=== PATIENT | female | born 1945 | race Caucasian/White ===

== ENCOUNTER 2016-06-14 08:46 | Inpatient (IN) | payer MEDICARE, OTHER ==
[2016-06-14] VITALS (8 sets, daily range): BP systolic 92–118; BP diastolic 48–70; PULSE 59–104; RESP 16–22; O2SAT 97–99
[~2016-06-14] VITALS: Ht 156.2 cm; Wt 56.8 kg
[~2016-06-14 08:46] MED LIST: ALBU18HF INHALATION; CHOL200047 PO; FOLI1TAB18 PO; FURO40TA4 PO; HYDR-4003 PO; IBUP-1827 PO; LEVO137T2 PO; LORA0.5T PO; MULT-1018 PO; OMEG1CAP56 PO; POTA20TA16 PO; THIA100T64 PO
--- NOTE | 2016-06-14 09:15 | ED.REPORT ---
HPI-GI Bleed Date of Service Jun 14, 2016 ED Provider: Bhavin Srinivasan MD A 71 year old female with a history of Radha fundoplication, colon resection, diverticulitis, cirrhosis, and anxiety is brought to the ED via EMS due to a possible rectal bleed. The pt noticed blood in her stool 1.5 days ago. This has been accompanied by nausea, abdominal pain, reduced appetite, and fatigue. She was also found to have low blood pressure by medics. The pt denies lightheadedness, dizziness, vomiting, diarrhea, or cough. The pt had an endoscopy in 2013 that indicated distal esophagitis with multiple antral ulcers. Nursing Notes Stated Complaint: RECTAL BLEEDING Chief Complaint: General Complaint Nursing Notes Reviewed: Yes Allergies: Coded Allergies: No Known Allergies (Verified , 06/14/16) Scheduled Cholecalciferol (Vitamin D3) (Vitamin D3) 2,000 Unit Capsule 2,000 UNIT PO DAILY Folic Acid (Folic Acid) 1 Mg Tablet 1 MG PO DAILY Furosemide (Furosemide) 40 Mg Tablet 40 MG PO DAILY Levothyroxine (Levothyroxine) 137 Mcg Tablet 137 MCG PO DAILY Multivitamin (Multi Vitamin Daily) 1 Each Tablet 1 EACH PO DAILY [place]-3 Fatty Acids/Fish Oil ([place] 3 1,000 mg Softgel) 1 Each Capsule 1 CAPSULE PO DAILY Potassium Chloride (Potassium Chloride) 20 Meq Tab.er.prt 20 MEQ PO DAILY TAKE WITH FOOD Thiamine Mononitrate (Vitamin B-1) 100 Mg Tablet 100 MG PO DAILY Scheduled PRN Albuterol Sulfate (Ventolin HFA Inhaler) 200 Puff/18 Gm Inhaler 2 PUFF INHALATION Q4H PRN PRN For Shortness of Breath Hydrocodone-Acetaminophen 5-325 mg (Hydrocodone-Acetaminophen 5-325 mg) 1 Each Tablet 1 TABLET PO Q4H PRN PRN For Pain Ibuprofen (Ibuprofen) 600 Mg Tablet 600 MG PO TIDWM PRN PRN For Pain Lorazepam (Lorazepam) 0.5 Mg Tablet 0.5 MG PO Q6H PRN PRN For Anxiety General Time Seen by Provider: 09:08 Chief Complaint Chief Complaint: Other (Blood in stool) Hx Obtained From: Patient, EMS Arrived By: Ambulance Onset Occurred: 2 days ago Symptom Duration: Since onset Recent Healthcare: Recent doctor visit, Recent hospitalization Similar Sx Previous: No Past Medical History Past Medical History Notes: PCP: Dr. Sol numerous recent ED visits for hip pain and alcohol intoxication Endoscopy 2013 indicates distal esophagitis with multiple antral ulcers Past Medical History 1. History of childhood asthma, which is quite stable. 2. Chart review reveals a diagnosis of paroxysmal atrial fibrillation. 3. Hypothyroidism. 4. Sleep apnea, untreated. 5. Central retinal vein occlusion. 6. Cataract on the left. 7. History of sepsis secondary to UTI with a prolonged hospitalization in June 2013. 8. Chronic hip pain 9. Liver cirrhosis 10. Mild dementia 11. Anxiety Reports: GERD Past Surgical History Surgical History 1. Sinus surgery. 2. YRN, BSO. 3. Colon resection for diverticulitis. 4. Radha fundoplication. 5. Endoscopy 6. Sinus nasoplasty Reports: Hip replacement Family History noncontributory Smoking History Former Smoker Social History History of EtOH abuse Drug Use: Denies drug use Other Social History: Good social support, , Local resident Ambulatory Status Wheelchair Review of Systems Constitutional: Reports: Fatigue Respiratory: Denies: Non-productive cough, Prod cough, bloody, Shortness of breath Cardiovascular: Denies: Chest pain GI: Reports: Abdominal pain, Denies: Nausea, Vomiting Skin: Denies Rash Neurologic: Denies: Dizziness, Lightheaded Complete sys rev & neg: except as marked. Physical Exam Initial Vital Signs Vital Signs (First) Date Time Temp Pulse Resp B/P Pulse Ox O2 Delivery O2 Flow Rate FiO2 06/14/16 09:02 37.1 104 20 93/51 99 Room Air Initial VS: Reviewed General/Constitutional: Awake, Alert Respiratory / Chest: Atraumatic, Breath sounds NL, Breath sounds = bilat, No respiratory distress Cardiovascular: Heart rate NL, Regular rhythm, Heart sounds NL, No murmurs Abdomen: Atraumatic, Soft, Non-tender, BS normoactive grossly bloody external hemorrhoids, no active bleeding scaly skin over decubitus area no ulcers Head / Eyes: Atraumatic, Normocephalic, PERRL, EOMI ENT: Atraumatic, Airway patent, Mucous membranes moist Skin Skin: Atraumatic, Color NL, No rash, Warm, Dry Neurologic: Oriented X3, Speech NL, No motor deficits, No sensory deficits Neck: Atraumatic, Supple, Full range of motion Back: Atraumatic, Full range of motion Upper Extremity / MS: Atraumatic, Full range of motion Lower Extremity / Pelvis / MS: Atraumatic, Full range of motion Psychiatric: Affect NL, Mood NL Interpretation & Diagnostics Lab Results Interpretation Result Diagram: 06/14/16 0917 06/14/16 0917 Test 06/14/16 09:17 White Blood Count 5.4th/mm3 (3.8-10.1) Red Blood Count 3.13mil/mm3 (3.90-5.20) Hemoglobin 9.6g/dL (12.0-15.6) Hematocrit 29.7% (35.0-46.0) Mean Corpuscular Volume 94.9fL (81-100) Mean Corpuscular Hemoglobin 30.7pg (27.0-35.0) Mean Corpuscular Hemoglobin Concent 32.3% (32.0-37.0) Red Cell Distribution Width 20.9% (12.3-15.4) Platelet Count 146bil/L (150-400) Neutrophils (%) (Auto) 66.0% (40-74) Lymphocytes (%) (Auto) 16.4% (14-46) Monocytes (%) (Auto) 15.5% (4-12) Eosinophils (%) (Auto) 0.9% (0-5) Basophils (%) (Auto) 0.6% (0-3) Prothrombin Time 14.7sec (8.1-12.5) Prothromb Time International Ratio 1.37ratio Sodium Level 142mEq/L (134-144) Potassium Level 3.2mEq/L (3.5-5.2) Chloride Level 105mEq/L (97-108) Carbon Dioxide Level 24mmol/L (18-29) Blood Urea Nitrogen 6mg/dL (8-27) Creatinine < 0.30mg/dL (0.57-1.00) Estimat Glomerular Filtration Rate 315mL/min (>59) Glucose Level 137mg/dL (60-99) Calcium Level 7.6mg/dL (8.5-10.1) Total Bilirubin 2.5mg/dL (0.0-1.2) Aspartate Amino Transf (AST/SGOT) 165U/L (0-50) Alanine Aminotransferase (ALT/SGPT) 73U/L (0-32) Alkaline Phosphatase 153U/L (25-165) Total Protein 5.5g/dL (6.4-8.4) Albumin 2.4g/dL (3.4-5.0) ECG Interpretation ECG Interpretation: normal sinus rhythm with a rate of 82 RBBB T wave inversions in V1-V3 no change from previous dated 02/11/2016 Time: 09:42 Interpreted by: ED physician X-Ray Chest Interpretation Chest Xray Interpretation: IMPRESSION: No acute cardiopulmonary disease. Dictated by: Jordy Lopez M.D. on 06/14/2016 at 9:46 Approved by: Jordy Lopez M.D. on 06/14/2016 at 9:46 Interpretation / Wet Read by: Interpret - Radiologist Re-Eval/Medical Decision Med Decision/Clinical Course 71-year-old female history of Radha fundoplication, diverticulitis status post colon resection, presenting with rectal bleeding 2 days. Endoscopy in 2013 showed antral ulcers negative for malignancy. Reports melena 6 months ago for several days never sought care. Hemoglobin here is 9.7 which is stable. MAPs stable here. Gross red blood on exam. Discussed with GI Dr. Snell who recommended admission on Protonix drip with endoscopy and colonoscopy tomorrow morning. Admitted to telemetry. Source of Hx: Old records Re-Evaluation/Progress #1: Time of Eval: 11:27 Patient Status: Condition improved Re-Evaluation/Progress Note: Pt rechecked, who is stable. Further physical examination is performed. Re-Evaluation/Progress #2: Time of Eval: 12:19 Patient Status: Condition unchanged Re-Evaluation/Progress Note: Pt rechecked, who is comfortable. She is informed of the need for admission. The pt understands and agrees with the plan. All questions are addressed at this time. Code status is discussed. Pt is full code. Consultation #1: Referral / Consult Name: Rafael Snell MD Call Returned at: 11:41 Revenue Specialist: Agrees with eval, Agrees with plan Note: Consulted with Dr. Snell, GI, regarding pt's case. Dr. Snell recommends admission, Protonix drip, and colonoscopy tomorrow. Consultation #2: Referral / Consult Name: Tamir Underwood DO Consulted With: Hospitalist Call Returned at: 12:16 Revenue Specialist: Agrees with eval, Agrees with plan, Accepts admit Note: Spoke with Dr. Underwood, hospitalist, regarding pt's case. Dr. Underwood agrees with the evaluation and agrees to admit the pt. Counseled Regarding: Diagnosis, Lab results, Need for admission Discharge & Departure Impression: Primary Impression: GI bleed GI bleed type/associated pathology: unspecified gastrointestinal hemorrhage type Qualified Code: K92.2 - Gastrointestinal hemorrhage, unspecified Disposition: ADMITTED TO HOSPITAL Discharge Condition All VS Reviewed: Yes Condition: Stable Referrals: NOPCP (PCP) Alonzoiblatia Attestation Portions of this note were transcribed by Abigail Bush. I, Dr. Srinivasan personally performed the history, physical exam and medical decision-making; I reviewed and confirmed the accuracy of the information in the transcribed note. Signed by: Chalino Gamino, 06/14/2016, 12:25 Bhavin Srinivasan MD Jun 14, 2016 09:15 ABIGAIL BUSH Jun 14, 2016 10:07
[2016-06-14] MEDS ORDERED: 0.9% Sodium Chloride 1,000 ML IV ONE ×2 (09:26→13:20)
[2016-06-14] MEDS ORDERED: Pantoprazole 4 mg/mL 10 mL Inj IVPUSH ONE (09:30)
--- NOTE | 2016-06-14 09:48 | DRSVH ---
PROCEDURE: X-RAY CHEST ONE VIEW, PORTABLE ([id number]) INDICATIONS: 71 year-old female with gastrointestinal bleeding. TECHNIQUE: One view of the chest was acquired. COMPARISON: [facility], CR, XR CHEST 1VW (PORTABLE), 02/11/2016, 15:19. [facility], CR, XR CHEST 1VW (PORTABLE), 01/25/2016, 19:18. [facility], CR, CHEST FOR PICC PLACEMENT , 08/02/2014, 15:13. FINDINGS: Surgical changes and devices: None. Lungs and pleura: No pleural effusions or pneumothorax. Lungs are clear. Mediastinum: Mediastinal contours appear normal. Heart size is normal. There is aortic atheroscler osis. Bones and chest wall: No suspicious bony lesions. Overlying soft tissues appear unremarkable. IMPRESSION: No acute cardiopulmonary disease. Dictated by: Jordy Lopez M.D. on 06/14/2016 at 9:46 Approved by: Jordy Lopez M.D. on 06/14/2016 at 9:46
[2016-06-14 10:01] LABS: INR 1.37 ratio
[2016-06-14 10:05] LABS: BASOPHILS % (AUTO) 0.6 % (0-3); EOSINOPHILS % (AUTO) 0.9 % (0-5); MONOCYTES % (AUTO) 15.5 % (4-12); Mean Corpuscular Hemoglobin 30.7 pg (27.0-35.0); Mean Corpuscular Volume 94.9 fL (81-100); Platelet Count 146 bil/L (150-400)
[2016-06-14] MEDS ORDERED: Pantoprazole Inj 80 MG, Pharmacy To Mix 1 EA in 0.9% Sodium Chloride 80 ML IV ONE ×2 (12:15)
[2016-06-14] MEDS ORDERED: Ondansetron 2 mg/mL 2 mL Inj IVPUSH PRN ×2 (12:20→14:05)
[2016-06-14] MEDS ORDERED: Alum-Mag Hydrox-Simeth 30 mL Suspension PO PRN ×2 (12:20→14:05)
[2016-06-14] MEDS ORDERED: Polyethylene Glycol (PEG) 17 Gm Powder PO PRN (14:05)
[2016-06-14] MEDS ORDERED: Pantoprazole Inj 80 MG in 0.9% Sodium Chloride 100 ML IV ONE (14:10)
[2016-06-14] MEDS: Multivit-Miner-Folic Acid-Iron Tablet PO SCH (14:10)
--- NOTE | 2016-06-14 14:57 | DRSVH ---
PROCEDURE: US ABDOMEN, LIMITED ([id number]) INDICATIONS: 71 year-old female with right upper quadrant pain, elevated liver function tests. TECHNIQUE: Real-time focused scanning was performed of the abdomen, with image documentation. COMPARISON: [facility], CT, CT ABD PELVIS W CON, 01/25/2016, 20:39. FINDINGS: Solitary dependent nonmobile 1.4 cm shadowing gallstone is again noted. Gallbladder wall is thickened from 3-5 mm. No pericholecystic fluid. Extrahepatic bile duct is nondilated at 4.4 mm. IMPRESSION: Nonmobile 1.4 cm gallstone as well as gallbladder wall thickening, suspicious for evolvin g acute cholecystitis. Dictated by: Jordy Lopez M.D. on 06/14/2016 at 14:55 Approved by: Jordy Lopez M.D. on 06/14/2016 at 14:55
[2016-06-14] MEDS: 0.9% Sodium Chloride 1,000 ML IV SCH (15:03)
[2016-06-14] MEDS: Pantoprazole Inj 80 MG in 0.9% Sodium Chloride 80 ML IV SCH (15:03)
[2016-06-14] MEDS ORDERED: PEG/Electrolytes 4,000 mL Solution PO ONE (16:00)
--- NOTE | 2016-06-14 16:15 | NUR ---
Admit to Room 3026 Pt. arrived to room via stretcher at approx. 1300. Pt. very lethargic, woke easily to voice and light touch but fell back to sleep quickly. Pt. alert to self and location but required frequent reminders as to plan of care. No family in room. Pt. very poor historian. Admit assessment completed using records from prior admits. No medication list available. Requested list from [facility] on [address] but pharmacy is currently closed through . Thorough skin check completed with charge preparation technician and additional RN. Pressure ulcer protocol initiated. Pt. currently on P-500 KATHLEEN bed. Pt. crying out when legs are moved or she is repositioned in bed. Cooperative with care. Bowel prep started. Pt. does not use call light appropriately but calls out into hallways. Frequent rounding being performed.
[2016-06-14 20:04] LABS: APPEARANCE,URINE TURBID (CLEAR,HAZY); COLOR,URINE DARK YELLOW (YELLOW)
--- NOTE | 2016-06-14 20:08 | PCM.HPMED ---
Subjective Date of Service Jun 14, 2016 Primary Provider: Admitting Physician: Tamir Underwood DO Primary Care Physician: Andrez Attending Physician: Tamir Underwood DO Admit Status: From the Emergency Department Chief Complaint: bright red blood per rectum History of Present Illness: History is limited as patient and her are poor historians. 71 yr old female with history of Radha fundoplication, colon resection, diverticulitis, cirrhosis,paroxysmal afib and alcohol abuse presented to the ED via EMS due to bright red blood per rectum that began last night. Pt and her report that last night after a bowel movement, they noticed bright red blood in her stool. Pt reports she has never experienced anything like this in the past. Pt denies any other symptoms, other than her chronic right hip pain. Pt's reports that she has been getting progressively weaker over the past few weeks.Pt denies nausea, vomiting, diarrhea, abdominal pain, fevers or chills. Pt denies any lightheadedness or dizziness. Pt and deny any previous episodes of hematochezia and deny any episodes of melena. Pt reports that she has chronic hip pain, and denies using NSAIDs for the pain. She reports she was previously taking oxycodone, but this was discontinued by her PCP and now she takes Gabapentin, which she feels does not help her pain. Pt reports that she had a colonoscopy and EGD 5 years ago, and was told everything was normal. Pt's reports she has a history of colon polyps. Pt reports that her mother had colon cancer, but denies any family history of celiac disease or IBS. Of note, pt has history of alcoholism with multiple admissions. Pt admits to drinking 1 glass of wine nightly, reports that she additionally drinks 3 -4 glasses of vodka as well( did not specify size of glass). Review of records note that both the patient and her have history of alcohol abuse. Pt reports her last alcoholic drink was sometime in the afternoon of 06/13/2016. Pt and deny any history of withdrawal seizures. While in the ER, temp 37.1, HR104, RR20, BP 93/51, 99% on RA. Pt received fluids while in the ER. Hgb and Hct in ER 9.6/29.7 respectively, no transfusion given. Blood alcohol level less than 10. Review of Systems: A comprehensive review of systems was conducted with the patient and found to be negative except as above in the History of Present Illness. Allergies Coded Allergies: No Known Allergies (Verified , 06/14/16) Home Medications From discharge instructions on 02/14/2016 Discharge Medications Cholecalciferol (Vitamin D3) (Vitamin D3) 2,000 Unit Capsule 2,000 UNIT PO DAILY Prescribed by: ANNA ALCARAZ DO Folic Acid (Folic Acid) 1 Mg Tablet 1 MG PO DAILY Prescribed by: ANNA ALCARAZ DO Furosemide (Furosemide) 40 Mg Tablet 40 MG PO DAILY Prescribed by: ANNA ALCARAZ DO Levothyroxine (Levothyroxine) 137 Mcg Tablet 137 MCG PO DAILY Prescribed by: ANNA ALCARAZ DO Multivitamin (Multi Vitamin Daily) 1 Each Tablet 1 EACH PO DAILY Prescribed by: ANNA ALCARAZ DO [place]-3 Fatty Acids/Fish Oil ([place] 3 1,000 mg Softgel) 1 Each Capsule 1 CAPSULE PO DAILY Prescribed by: ANNA ALCARAZ DO Potassium Chloride (Potassium Chloride) 20 Meq Tab.er.prt 20 MEQ PO DAILY TAKE WITH FOOD Prescribed by: ANNA ALCARAZ DO Thiamine Mononitrate (Vitamin B-1) 100 Mg Tablet 100 MG PO DAILY Prescribed by: ANNA ALCARAZ DO As needed Albuterol Sulfate (Ventolin HFA Inhaler) 200 Puff/18 Gm Inhaler 2 PUFF INHALATION Q4H PRN PRN For Shortness of Breath Prescribed by: ANNA ALCARAZ DO Hydrocodone-Acetaminophen 5-325 mg (Hydrocodone-Acetaminophen 5-325 mg) 1 Each Tablet 1 TABLET PO Q4H PRN PRN For Pain Prescribed by: ANNA ALCARAZ DO Ibuprofen (Ibuprofen) 600 Mg Tablet 600 MG PO TIDWM PRN PRN For Pain Prescribed by: ANNA ALCARAZ DO Lorazepam (Lorazepam) 0.5 Mg Tablet 0.5 MG PO Q6H PRN PRN For Anxiety Prescribed by: ANNA ALCARAZ DO Additional med instructions Medication prescription will be provided for assisted living facility PMH Numerous recent ED visits for hip pain and alcohol intoxication Dementia. is caregiver History of childhood asthma, which is quite stable. Paroxysmal atrial fibrillation. Hypothyroidism. Sleep apnea, untreated. Central retinal vein occlusion. Cataract on the left. History of sepsis secondary to UTI with a prolonged hospitalization in June 2013. Chronic hip pain GERD Alcohol use disorder Surgical History Sinus surgery. YRN, BSO. Colon resection for diverticulitis. Radha fundoplication. Endoscopy Hip replacement Family History Mother had colon cancer Father had a broken hip Social History Hx Alcohol Use: Yes (per drinks 3-4 drinks of vodka daily, and wine daily) Hx Substance Use: No Hx Tobacco Use: No Smoking Status: Former Smoker (quit 1975) Living Arrangement: with Family Exam Vital Signs Vital Sign - Last Date Time Temp Pulse Resp B/P Pulse Ox O2 Delivery O2 Flow Rate FiO2 06/14/16 14:41 70 06/14/16 13:38 37.0 16 111/70 99 Room Air Exam General: No acute distress, frail appearing, appropriately interactive HEENT: Normocephalic, atraumatic. Pupils equal, round, and reactive to light and accommodation. Anicteric sclerae, moist conjunctivae. Oropharynx with moist mucosa. Neck: Supple with full range of motion. Cardiovascular: Regular rate and rhythm with no murmurs, rubs, or gallops appreciated Pulmonary: Clear to auscultation bilaterally with no crackles, wheezes, or rhonchi. Normal respiratory effort with no use of accessory muscles. Abdomen: Bowel tones present. Soft, nontender, nondistended. Extremities: Multiple areas of ecchymosis throughout upper and lower extremities. No edema Skin: Multiple skin tears on extremities, ecchymosis. Normal temperature. Psychiatric: Normal mood and affect. Lab and Diagnostics Result Diagram: 06/14/1691606/14/16916 X-Rays, CTs and MRIs PROCEDURE: X-RAY CHEST ONE VIEW, PORTABLE ([id number]) FINDINGS: Surgical changes and devices: None. Lungs and pleura: No pleural effusions or pneumothorax. Lungs are clear. Mediastinum: Mediastinal contours appear normal. Heart size is normal. There is aortic atherosclerosis. Bones and chest wall: No suspicious bony lesions. Overlying soft tissues appear unremarkable. IMPRESSION: No acute cardiopulmonary disease. Dictated by: Jordy Lopez M.D. on 06/14/2016 at 9:46 Approved by: Jordy Lopez M.D. on 06/14/2016 at 9:46 PROCEDURE: US ABDOMEN, LIMITED ([id number]) COMPARISON: [facility], CT, CT ABD PELVIS W CON, 01/25/2016, 20:39. FINDINGS: Solitary dependent nonmobile 1.4 cm shadowing gallstone is again noted. Gallbladder wall is thickened from 3-5 mm. No pericholecystic fluid. Extrahepatic bile duct is nondilated at 4.4 mm. IMPRESSION: Nonmobile 1.4 cm gallstone as well as gallbladder wall thickening, suspicious for evolving acute cholecystitis. Dictated by: Jordy Lopez M.D. on 06/14/2016 at 14:55 Approved by: Jordy Lopez M.D. on 06/14/2016 at 14:55 Assessment & Plan Acute GI bleed, present on admission, ongoing -Pt reports hematochezia -NPO for EGD and Colonoscopy in the AM -Protonix drip started -Continue to monitor -Labs in AM Alcohol abuse, present on admission, ongoing - CIWA protocol if needed. Not showing signs of withdrawal currently. -Continue to monitor - Telemetry -Social work consulted Acute hypokalemia. Present on admission. ongoing - repleted with Kdur - lab in am Acute on chronic transaminitis, Present on admission, ongoing - AST/ALT elevated at 165/73 -Current alcohol abuse -Previous CT imaging showed "Significant interval diffuse low attenuation change in appearance of the liver compared to prior exam. This could represent significant interval steatosis. A more aggressive, widely diffuse infiltrative process cannot be definitively excluded. Correlation to laboratory enzyme levels as well as potential further evaluation with MRI with hepatic protocol is recommended, as indicated." - Repeat labs in AM Gallstones on US, chronicity unknown, present on admission, ongoing -US done in ER demonstrating "Nonmobile 1.4 cm gallstone as well as gallbladder wall thickening, suspicious for evolving acute cholecystitis." -Pt had benign abdominal exam, denying pain. -Continue to monitor Chronic anemia, present on admission, ongoing - Anemia of chronic disease, liver disease, alcohol habituation - Patient's hemoglobin and hematocrit are at her baseline -No intention to transfuse at this time Code status: Discussed this with patient, and she states she is full code. Previous hospitalization in 01/2016 pt was DNR/DNI. Recommend discussing this with patient and family Patient admitted under inpatient status with expected length of stay > 2 midnights for severity of present symptoms, complexities of treatment plan and risk for adverse events VTE Mechanical Devices: Intermittant Pneumatic CD Resuscitation Status: CPR: Attempt Resuscitation Time spent 60 minutes Attending Statement I reviewed this patients chart, discussed the plan of care with the resident and examined the patient. I agree with the above physical exam and assessment and plan. Radha Whitehead DO Jun 14, 2016 15:22 Tamir Underwood DO Jun 15, 2016 17:13
[2016-06-14] MEDS ORDERED: Potassium Chloride 20 mEq SR Tablet PO ONE (20:10)
[2016-06-14 20:55] LABS: OCCULT BLOOD,URINE TRACE (NEGATIVE)
[2016-06-14 21:05] LABS: ICTOTEST,URINE POSITIVE (Negative)
[2016-06-15] VITALS (12 sets, daily range): BP systolic 86–124; BP diastolic 49–79; PULSE 65–87; RESP 14–22; O2SAT 95–100
[2016-06-15] MEDS: Pantoprazole Inj 80 MG in 0.9% Sodium Chloride 80 ML IV SCH ×3 (00:45→15:28)
[2016-06-15] MEDS: 0.9% Sodium Chloride 1,000 ML IV SCH ×3 (00:45→20:38)
--- NOTE | 2016-06-15 06:04 | NUR ---
Swallow/Golytely prep/PSVT Patient had difficulty swallowing pill this evening. Pill was cut in half and she began choking after sipping water. patient states " I don't usually have an audience at home" Patient continued to cough on water but states the pill finally went down. all other medications held for safety MD contacted. Swallow evaluation ordered. Patient to be on golytley prep. ok'd pills crushed in apple sauce if needed. Patient had no issues swallowing water per RN Swallow evaluation. Pills held at this time. Golytely prep continued. Patient encouraged to completed bowel prep. Golytely cup at bedside. patient encouraged to drink whole cup within 45 minutes. continue to check back with patient every 10 minutes patient would take on sip and states "I just can't" notified. patient had only consumed one 400ml cup from [id number]. MD schultz continue to encourage. Charge nurse into encouarge patient. Patient encouraged throughout the night and educated on purpose of bowel prep multiple times. at bedside encouraging patient. Patient has had 4 formed stools this shift. no signs of blood or bleeding present. Patient continues to sip golytely despite education and enforcement, she is aware that she may not be able to have colonoscopy or EGD in AM if she does not finish the bowel prep. Will continue to monitor. Patient had run of PSVT x2. notified. patient non-symptomatic. Vitals stable. MD notified. Potassium low and replaced this HS. ordered Magnesium for AM. will continue to monitor.
[2016-06-15 06:33] LABS: BASOPHILS % (AUTO) 0.9 % (0-3); EOSINOPHILS % (AUTO) 3.1 % (0-5); MONOCYTES % (AUTO) 15.5 % (4-12); Mean Corpuscular Hemoglobin 30.8 pg (27.0-35.0); Mean Corpuscular Volume 94.1 fL (81-100); NEUTROPHILS % (AUTO) 57.7 % (40-74); Platelet Count 95 bil/L (150-400)
[2016-06-15 06:52] LABS: Magnesium 1.2 mg/dL (1.6-2.6)
[2016-06-15] MEDS: Multivit-Miner-Folic Acid-Iron Tablet PO SCH (08:30)
[2016-06-15] MEDS ORDERED: Lactated Ringer's 1,000 ML IV ONE (08:43)
[2016-06-15] MEDS: Magnesium Sulf 2 Gm/50mL Water 2 GM in IV Premix 1 EACH IV SCH ×2 (08:51→20:41)
--- NOTE | 2016-06-15 09:47 | NUR ---
Off Marroquin Pt taken off floor to endo. BP 85/49, endo RN notified and will discuss w/ anesthesia. Addendum: 06/15/16 at 1704 by JOVANY NANCE RN Late Entry: Found pt back in room 3026 shortly after 11am.
--- NOTE | 2016-06-15 10:22 | PCM.ANEP1 ---
Post Anesthesia Phase 1 PACU Phase 1 Assessment Vital Signs Vital Signs Date Time Temp Pulse Resp B/P Pulse Ox O2 Delivery O2 Flow Rate FiO2 06/15/16 09:25 36.8 68 20 86/49 99 Room Air 06/15/16 08:00 66 06/15/16 05:23 70 06/15/16 05:03 36.9 70 20 124/55 97 Room Air Anesthetic Administered: GA Level of Alertness: Awake, talking SAMUELS's with Equal Strength: Yes Pain: No Nausea or Vomiting: No Oxygen Delivery: Nasal Cannula Lungs: Normal Air Movement Dermatome Level: Full Sensation Arnold Vernon MD Jun 15, 2016 10:22
--- NOTE | 2016-06-15 10:22 | PCM.ANEP2 ---
Post Anesthesia Evaluation ASA/CMS Post Anesthesia VS in Patient's Normal Range?: Yes Resp Stable; Airway Patent?: Yes CV Function & Hydration Stable: Yes Mental Status Recovered?: Yes Pain control Satisfactory?: Yes N/V Control Satisfactory?: Yes Arnold Vernon MD Jun 15, 2016 10:22
--- NOTE | 2016-06-15 10:22 | PCM.HPANE ---
Patient Data Surgeon Admitting Provider: Attending Provider: Primary Care Physician:Nopcp Other Provider: Reason for Visit Gi Bleed Ht/WT & BMI Height (Feet): 5 Height (Inches): 1.50 Weight (Kilograms): 56.800 Body Mass Index 23.34 Allergies Coded Allergies: No Known Allergies (Verified , 06/14/16) Past Anesthesia History Anesthesia History: Denies:: Abnormal Airway, Anesthesia Reactions, Difficult Intubation, Fam Anesthesia Reaction, Fam Malignant Hypertherm, Malignant Hyperthermia Diabetes History Hx Diabetes?: No MRSA MRSA: No Medications Active Scripts Potassium Chloride 20 Meq Tab.er.prt20 Meq PO DAILY 30 Days Ref 0 TAKE WITH FOOD Prov:Rafael Biggs DO 02/14/16 Hydrocodone-Acetaminophen 5-325 mg 1 Each Tablet1 Tablet PO Q4H PRN For Pain # 20 TABLET Ref 0 Prov:Rafael Biggs DO 02/14/16 Cholecalciferol (Vitamin D3) (Vitamin D3)2,000 Unit Capsule2,000 Unit PO DAILY 30 Days Prov:Rafael Biggs DO 02/14/16 [place]-3 Fatty Acids/Fish Oil ([place] 3 1,000 mg Softgel)1 Each Capsule1 Capsule PO DAILY 30 Days Prov:Rafael Biggs DO 02/14/16 Albuterol Sulfate (Ventolin HFA Inhaler)200 Puff/18 Gm Inhaler2 Puff INHALATION Q4H PRN For Shortness of Breath 30 Days Prov:Rafael Biggs DO 02/14/16 Furosemide 40 Mg [id number] Mg PO DAILY #30 Prov:Rafael Biggs DO 02/14/16 Thiamine Mononitrate (Vitamin B-1)100 Mg [id number] Mg PO DAILY 14 Days Prov:Rafael Biggs DO 02/14/16 Lorazepam 0.5 Mg Tablet0.5 Mg PO Q6H PRN For Anxiety #10 TABLET Ref 0 Prov:Rafael Biggs DO 02/14/16 Ibuprofen 600 Mg [id number] Mg PO TIDWM PRN For Pain #40 TABLET Ref 0 Prov:Rafael Biggs DO 02/14/16 Folic Acid 1 Mg Tablet1 Mg PO DAILY 30 Days Prov:Rafael Biggs DO 02/14/16 Levothyroxine 137 Mcg [id number] Mcg PO DAILY 30 Days Prov:Rafael Biggs DO 02/14/16 Multivitamin (Multi Vitamin Daily)1 Each Tablet1 Each PO DAILY 30 Days Ref 0 Prov:Rafael Biggs DO 9/1/16 History History of ENT Problems?: Yes HEENT History: Positive for:: Sinus Problem ("sinus surgery") Denies:: Abnormal Airway Cataracts Difficult Intubation Dysphagia Hearing Problem Hx of Heart Problems?: Yes Cardiovascular History: Positive for:: Atrial Fibrillation Chest Pain Irregular Heartbeat (Paroxysmal A. Fib. ) Denies:: Cardiac Surgery Congestive Heart Failure Edema Heart Murmur Hypertension Pacemaker Thrombophlebitis Hx of Respiratory Problem?: Yes Respiratory History: Positive for:: Asthma Tuberculosis Denies:: COPD Chest Surgery Dyspnea Emphysema Hemoptysis Pneumonia Hx Neurologic Problems?: Yes Neurological History: Positive for:: Dementia Headaches Denies:: Alzheimer's Disease CVA Dizziness Parkinson's Disease Seizures Hx of GI Problems?: Yes Gastrointestinal History: Positive for:: Cirrhosis Diverticulitis (Colon resection mid ) Gastroesphageal Reflux (radha procedure) Gastrointestinal Bleeding Hepatitis (Liver disease. Steatohepatitis. Cirrhosis.) Hiatal Hernia (repaired- Radha procedure 2001) Denies:: Heartburn Rectal Bleeding Hx of Problems?: No Genitourinary History: Positive for:: Urinary Tract Infection Denies:: HX of Hemodialysis Kidney Stones HX of Peritoneal Dialysis: No Female Hx: Denies:: Currently Endometriosis Pelvic Inflammatory Problems with Breasts? Hx Musculoskeletal Problems?: Yes Musculoskeletal History: Positive for:: Back Injury Joint Replacement (Rt hip surg X2) Denies:: Musculoskeletal Trauma Hx of Psycho/Social Problems?: Yes Psycho Social History: Positive for:: Anxiety Hx Depression Denies:: Bipolar Disorder Suicide Attempt Hx Surgeries?: Yes (Colon resection,Radha fundoplication,Camilo SULLIVAN.Sinus nasoplasty, rt hip) Hx Any Other Health Problems?: Yes Other History: Positive for:: Hospitalization (liver issues 2010) Thyroid Disease (Takes Synthroid. ) Denies:: Cancer Endocrine Disease History Blood Transfusions: Positive for:: Accept Blood Products? Denies:: Blood Transfuse Reaction Blood Transfusions Hx Diabetes: No Hx Alcohol Use: Yes (per drinks 3-4 drinks of vodka daily, and wine daily)Hx Substance Use: No Smoking Status: Former Smoker (quit 1975) Have You Smoked inLast 12 mo: No Stop/Bang Risk Assessment Category Category 1A: Patient has history of documented sleep apnea, and HAS NOT received any narcotic, sedative or anesthesia administration during this stay. Category 1B: Patient has history of documented sleep apnea, and HAS received any narcotic , sedative or anesthesia administration during this stay Category 2: Patient has SUSPECTED Obstructive Sleep Apnea, and HAS received any narcotic , sedative or anesthesia administration during this stay. Category 3: Patient has SUSPECTED Obstructive Sleep Apnea and HAS NOT received narcotic, sedative or anesthesia administration during this stay. Category 4: Outpatient in Procedural Areas with known sleep apnea or who screen positive for High Risk via the STOP/BANG questionnaire. Exam Exam Vital Signs Vital Signs Date Time Temp Pulse Resp B/P Pulse Ox O2 Delivery O2 Flow Rate FiO2 06/15/16 09:25 36.8 68 20 86/49 99 Room Air 06/15/16 08:00 66 06/15/16 05:23 70 06/15/16 05:03 36.9 70 20 124/55 97 Room Air General Appearance: Alert, Cooperative, Mild Distress HEENT/AIRWAY: MP 2 Lungs: Normal Air Movement Heart: Exam Unremarkable Meds/Labs/Diagnostics Admission Meds Current Medications Polyethylene Glycol/ Electrolytes 4000 ml 4,000 ml ONCE ONCE PO Last administered on 06/14/16at 16:36; Start 06/14/16 at 16:00; Stop 06/14/16 at 16 :01; Status DC Sodium Chloride 1,000 ml @ 0 mls/hr Q0M ONCE IV Last administered on at 13:22; Start 06/14/16 at 13:20; Stop 06/14/16 at 13:21; Status DC Sodium Chloride 1,000 ml @ 100 mls/hr Q10H IV Last administered on 06/15/16 00 :45; Start 06/14/16 at 14:04 Pantoprazole/ Sodium Chloride (Protonix Inj/ Normal Saline) 100 ml @ 10 mls/hr Q10H IV Last administered on 06/15/16 00:45; Start 06/14/16 at 14:10 Potassium Chloride 20 meq 20 meq ONCE ONCE PO Last administered on 06/14/16at 20:21; Start 06/14/16 at 20:10; Stop 06/14/16 at 20:13; Status DC Magnesium Sulfate/ Premix (Magnesium Sulf 2 Gm/50mL Water/ IV Premix) 50 ml @ 50 mls/hr BID IV Last administered on 06/15/16 08:51; Start 06/15/16 at 08:30; Stop 06/15/16 at 21:29 Labs Test 06/14/16 09:17 06/14/16 12:55 06/14/16 15:20 06/15/16 06:00 Prothrombin Time 14.7sec (8.1-12.5) Prothromb Time International Ratio 1.37ratio Prealbumin 8mg/dL (20-40) Urine Color Dark yellow (YELLOW) Urine Appearance Turbid (CLEAR,HAZY) Urine pH 6.0 (5.0-8.0) Urine Specific [place] 1.025 (1.003-1.035) Urine Protein 30mg/dL (NEG,TRACE) Urine Glucose (UA) mg/dL (NEGATIVE) Urine Ketones mg/dL (NEGATIVE) Urine Occult Blood Trace (NEGATIVE) Urine Nitrite Negative (NEGATIVE) Urine Bilirubin Moderate (NEGATIVE) Urine Ictotest Positive (Negative) Urine Urobilinogen mg/dL (NORMAL) Urine Leukocyte Esterase Trace (NEGATIVE) Urine RBC 0-2/hpf (0-2) Urine WBC 11-50/hpf (0-5) Urine Epithelial Cells Moderate/hpf (NONE-MOD) Urine Crystals None seen (NONE SEEN) Urine Bacteria Many/hpf (NONE-FEW) Urine Hyaline Casts None/lpf (NONE) Urine Granular Casts Rare (NONE SEEN) Urine Waxy Casts None seen (NONE SEEN) Urine Red Blood Cell Casts None seen (NONE SEEN) Urine White Blood Cell Casts None seen (NONE SEEN) Urine Mucus Present (None Seen) Urine Trichomonas None seen (NONE SEEN) Urine Yeast None (NONE SEEN) Urinalysis Comment Color interference Urine Culture Reflexed Indicated Urine Opiates Screen Negative Urine Methadone Screen Negative Urine Barbiturates Screen Negative Urine Amphetamines Screen Negative Urine Benzodiazepines Screen Negative Urine Cocaine Metabolite Screen Negative Urine Cannabinoids Screen Negative Alcohol, Quantitative < 10mg/dL (0-10) White Blood Count 4.6th/mm3 (3.8-10.1) Red Blood Count 2.86mil/mm3 (3.90-5.20) Hemoglobin 8.8g/dL (12.0-15.6) Hematocrit 26.9% (35.0-46.0) Mean Corpuscular Volume 94.1fL (81-100) Mean Corpuscular Hemoglobin 30.8pg (27.0-35.0) Mean Corpuscular Hemoglobin Concent 32.7% (32.0-37.0) Red Cell Distribution Width 21.3% (12.3-15.4) Platelet Count 95bil/L (150-400) Neutrophils (%) (Auto) 57.7% (40-74) Lymphocytes (%) (Auto) 21.1% (14-46) Monocytes (%) (Auto) 15.5% (4-12) Eosinophils (%) (Auto) 3.1% (0-5) Basophils (%) (Auto) 0.9% (0-3) Sodium Level 143mEq/L (134-144) Potassium Level 3.1mEq/L (3.5-5.2) Chloride Level 110mEq/L (97-108) Carbon Dioxide Level 20mmol/L (18-29) Blood Urea Nitrogen 6mg/dL (8-27) Creatinine < 0.30mg/dL (0.57-1.00) Estimat Glomerular Filtration Rate mL/min (>59) Glucose Level 99mg/dL (60-99) Calcium Level 7.0mg/dL (8.5-10.1) Magnesium Level 1.2mg/dL (1.6-2.6) Total Bilirubin 2.2mg/dL (0.0-1.2) Aspartate Amino Transf (AST/SGOT) 108U/L (0-50) Alanine Aminotransferase (ALT/SGPT) 52U/L (0-32) Alkaline Phosphatase 110U/L (25-165) Total Protein 5.0g/dL (6.4-8.4) Albumin 2.2g/dL (3.4-5.0) Plan Impression Patient chart reviewed, patient interviewed and anesthestic plan with risks, benefits, and alternatives discussed, and informed consent obtained. ASA Physical Status: ASA3 Severe Disease Anesthetic Plan: GA Bene/Risks/Altern/Consents: Yes HP Complete Prior to Induction: Yes Arnold Vernon MD Jun 15, 2016 10:22
[2016-06-15] MEDS ORDERED: fentaNYL-PF 50 mCg/mL 2 mL Inj ONE (12:47)
[2016-06-15] MEDS ORDERED: Propofol 10,000 mCg/mL 20 mL Inj ONE (12:47)
--- NOTE | 2016-06-15 15:26 | PCM.PNMED ---
Subjective Date of Service Jun 15, 2016 Subjective Patient back from endoscopy, no report on results available yet. She was unable to tolerate her bowel prep and was only given an EGD today. No chest pain, nausea vomiting, abdominal pain. Exam Vital Signs Vital Sign - Last Date Time Temp Pulse Resp B/P Pulse Ox O2 Delivery O2 Flow Rate FiO2 06/15/16 13:06 36.6 68 20 96/63 98 Room Air Intake and Output 06/14/16 06/14/16 06/15/16 Cumulative From/Thru 15:00 23:00 07:00 06/14/16 09:02 - 06/15/16 06:29 Intake Total 2000 ml 720 ml 800 ml 3520 ml Output Total 250 ml 250 ml Balance 2000 ml 720 ml 550 ml 3270 ml Intake Oral 720 ml 800 ml 1520 ml IV Total 2000 ml 2000 ml Output Urine Total 250 ml 250 ml # Voids 2 2 # Bowel Movements 0 3 3 Exam General: Alert, confused, NAD Head: Normocephalic, atraumatic Eyes: BRADY, EOMI, no scleral Icterus Chest: clear to auscultation B/L, no wheezing rales or rhonchi Heart: Regular rate and rhythm. Normal S1, S2, no murmurs noted Abdomen: soft, non-tender. Bowel sounds are normoactive. No guarding or rebound. Extremities: no cyanosis, clubbing or edema. IVs and Medications Medications Reviewed: Medications were reviewed in detail Lab and Diagnostics Result Diagram: 06/15/16 0600 06/15/16 0600 X-Rays, CTs and MRIs PROCEDURE: X-RAY CHEST ONE VIEW, PORTABLE ([id number]) FINDINGS: Surgical changes and devices: None. Lungs and pleura: No pleural effusions or pneumothorax. Lungs are clear. Mediastinum: Mediastinal contours appear normal. Heart size is normal. There is aortic atherosclerosis. Bones and chest wall: No suspicious bony lesions. Overlying soft tissues appear unremarkable. IMPRESSION: No acute cardiopulmonary disease. Dictated by: Jordy Lopez M.D. on 06/14/2016 at 9:46 Approved by: Jordy Lopez M.D. on 06/14/2016 at 9:46 PROCEDURE: US ABDOMEN, LIMITED ([id number]) COMPARISON: [facility], CT, CT ABD PELVIS W CON, 01/25/2016, 20:39. FINDINGS: Solitary dependent nonmobile 1.4 cm shadowing gallstone is again noted. Gallbladder wall is thickened from 3-5 mm. No pericholecystic fluid. Extrahepatic bile duct is nondilated at 4.4 mm. IMPRESSION: Nonmobile 1.4 cm gallstone as well as gallbladder wall thickening, suspicious for evolving acute cholecystitis. Dictated by: Jordy Lopez M.D. on 06/14/2016 at 14:55 Approved by: Jordy Lopez M.D. on 06/14/2016 at 14:55 Assessment & Plan Acute GI bleed, present on admission, ongoing -Pending report for EGD, plans for colonoscopy tomorrow. -Continue bowel prep -Protonix drip -Continue to monitor Alcohol abuse, present on admission, ongoing - CIWA protocol if needed. Not showing signs of withdrawal currently. -Continue to monitor Acute hypokalemia. Present on admission. ongoing - replete Acute on chronic transaminitis, Present on admission, ongoing - AST/ALT elevated at 165/73 -Current alcohol abuse -Previous CT imaging showed "Significant interval diffuse low attenuation change in appearance of the liver compared to prior exam. This could represent significant interval steatosis. A more aggressive, widely diffuse infiltrative process cannot be definitively excluded. Correlation to laboratory enzyme levels as well as potential further evaluation with MRI with hepatic protocol is recommended, as indicated." Gallstones on US, chronicity unknown, present on admission, ongoing -US done in ER demonstrating "Nonmobile 1.4 cm gallstone as well as gallbladder wall thickening, suspicious for evolving acute cholecystitis." -Pt with benign abdominal exam, denying pain. -Continue to monitor Chronic anemia, present on admission, ongoing - Anemia of chronic disease, liver disease, alcohol habituation - Patient's hemoglobin and hematocrit are at her baseline -No intention to transfuse at this time Code status: Full code. DVT prophylaxis: Contraindicated and GI bleed Disposition: Likely home, pending hospital course. Plans for colonoscopy tomorrow VTE Mechanical Devices: Intermittant Pneumatic CD Resuscitation Status: CPR: Attempt Resuscitation Tamir Underwood DO Jun 15, 2016 15:04
--- NOTE | 2016-06-15 15:45 | CONS ---
[address] [address] CONSULTATION REPORT PATIENT: NILA PRATT : 1945 MR#: [id number] ADMIT: 06/15/2016 JOB ID: [id number] DATE OF SERVICE: 06/15/2016 REASON FOR CONSULTATION: Rectal bleeding. HISTORY OF PRESENT ILLNESS: A 71-year-old, female with history of Radha fundoplication, presumed colon resection in the past, history of diverticulitis, cirrhosis in the past, paroxysmal AFib, alcohol abuse, presented for consultation for rectal bleeding. Most of the history has come from the chart biopsy. The patient was reported to have bright red blood per rectum when she was brought in. The patient states that she does not recall whether she had any rectal bleeding or not. Patient, in the past, had an EGD with biopsy done on October 14, 2013, which showed distal esophagitis and multiple gastric antral ulcers with edematous prepylorus and a hiatal hernia. Pathology is unknown and not in the chart. The patient said she had a colonoscopy two years ago which was normal. I have no records. The patient states she does have a family history of colon cancer in the mother, diagnosed at the age of 67, but no inflammatory bowel disease or celiac disease. The patient does have a history of alcoholism with multiple admissions. She drinks one glass of wine nightly and drinks an additional 3-4 glasses of vodka per day. Last drink was 06/03/2016. The patient denies history of NSAID use. The patient denies rectal bleeding, hemorrhoids. PAST MEDICAL HISTORY: As stated above, which also includes dementia, childhood asthma, hypothyroidism, sleep apnea, retinal vein occlusion, cataracts of left eye, history of sepsis secondary to UTI in June 2013, GERD, alcohol abuse, chronic hip pain. PAST SURGERIES: Sinus surgery, YRN-BSO. Colon resection in the past for diverticulitis, Radha fundoplication, and hip surgery. No known drug allergies. MEDICATIONS AT HOME: Vitamin D3, folic acid, Lasix, Synthroid, multivitamin, omega-3, potassium and thiamine. SOCIAL HISTORY: She is an alcoholic. She drinks 3-4 drinks of vodka per day and wine daily for a number of years. Former smoker. Quit in 1975. No IV drug use. FAMILY HISTORY: Positive for colon cancer. Mother was diagnosed at the age of 67 but no inflammatory bowel disease or celiac disease. REVIEW OF SYSTEMS: The patient denies headache, blurred vision, nausea, vomiting, chest pain, shortness of breath, palpitation, skin rash or joint pain. Vital signs: Upon presentation, her temperature is 36.9, pulse 70, blood pressure 124/55, respiratory rate 20, satting 97% on room air. General: Head normocephalic, atraumatic. Neck: Supple. Lungs: Clear to auscultation bilaterally. Cardiovascular: Regular rhythm and rate. Abdomen: Soft, nondistended, nontender. Normoactive bowel sounds. Extremities: No cyanosis, clubbing, edema. LABORATORIES: White count 4.6, hemoglobin 8.8, hematocrit 26, MCV 94, platelet count of 95. Sodium 143, potassium 3.1, chloride 110, bicarb 20. BUN 6, creatinine less than 0.3. Glucose , calcium 7.0. Magnesium 1.2, total bili 2.2, AST 108, ALT 52, alk phos 110. The patient's PT 14.7, INR 1.37. Abdominal ultrasound was performed on June 14, 2016, which showed a nonmobile, 1.4 cm gallstone, thickened gallbladder at that point in time. Suspicious for evolving acute cholecystitis. ASSESSMENT AND PLAN: This is a 71-year-old, female with a history of Radha fundoplication, colon resection for diverticulitis in the past, cirrhosis, paroxysmal atrial fibrillation, alcohol abuse in the past, history of gastric ulcers and upper endoscopy in 2013, history of dementia, per history childhood asthma, sepsis in the past, history of UTI in June 2013, GERD. History of alcohol abuse, drinks 3-4 glasses of vodka per day along with wine for many years. Presents for consultation for bright red blood per rectum. At this point in time, I do recommend the patient get an EGD and colonoscopy. The patient must finish her entire prep, which she did not do this morning. In regards to her liver enzymes, this is most likely due to alcohol given her heavy alcohol history and AST to ALT ratio greater than 2:1 ratio. Her MELD score is 12 at this point in time, if in fact the patient does have cirrhosis. The patient's current Maddrey discriminant function score is 12 at this time and does not require steroids. Currently, the patient does not have, per the nursing staff, and has not had any rectal bleeding while she is in-house here. RECOMMENDATIONS: 1. N.p.o. except for medications. 2. Continue Protonix drip at this time. 3. We will do an upper endoscopy today with anesthesia. I have emphasized that the patient must take her entire prep and which she did not even take one-quarter of it at this point in time. If the patient wishes to have a colonoscopy, this can be done tomorrow, but the patient must take the entire prep. The patient wishes to have colonoscopy tomorrow. Prep tonight. 4. Alcohol cessation. 5. No steroids indicated for acute alcoholic hepatitis at this time given MDF score. 6. Avoid NSAIDs. Will continue to follow. ELLIOT
[2016-06-15] MEDS ORDERED: PEG/Electrolytes 4,000 mL Solution PO ONE ×2 (16:00)
--- NOTE | 2016-06-15 16:25 | NUR ---
Social Work-initial assessment: Data:See initial assessment. Pt is a 71 y/o female who was admitted on 06/14/16 for GI bleed per H&P. Pt's insurance is [facility] and [place] and PCP is Dr. Crews at [facility]. EMR reviewed. SW met with pt at bedside to discuss discharge planning, SW role explained. Pt resides at home with her where she remains independent with basic ADLS. Pt has a fww and w/c and does not drive. Pt has had HH in the past and has been to SNF. Pt has no correction care or VA benefits. Pt does not believe she has completed DPOA/advanced directive paperwork and is not interested in a copy. SW attempted to discuss pt's ETOH use, but pt did not want to talk about it. Pt's currently not present, SW attempted to reach him via phone. SW to follow up with regarding discharge planning also. Anticipate pt to return home at discharge. SW provided phone number and plan on white board in room. SW will continue to follow. Assessment:Pt who has assistance from her . Plan:Pt to likely discharge home when medically stable. SW to follow up with also regarding planning. SW will continue to follow. JENELLE Goss Addendum: 06/15/16 at 1630 by YUE DONOHUE SS Amended: Links added.
--- NOTE | 2016-06-15 17:05 | NUR ---
Confusion, Bowel Prep Pt oriented, but remains very forgetful. Constantly calling out, believes family members are in hallway, wants staff to put on her shoes and retrieve her wheelchair from the hallway. Apologetic after staff explains current situation. Golytely started at 4pm. Reminded pt that she promised GI doc she would drink entire prep. However, pt will only take small sips at a time, then "I can't drink any more". Stools have been loose today but not yet liquid. Light brown in color. No blood or blackness noted. Will ask for toilet or bedpan but doesn't seem to understand how to use, remains incontinent in brief at this time.
--- NOTE | 2016-06-15 17:58 | ENDO ---
[address] [address] ENDOSCOPY PROCEDURE PATIENT: NILA PRATT : 1945 MR#: [id number] ADMIT: 06/15/2016 JOB ID: [id number] TITLE OF OPERATION: Esophagogastroduodenoscopy with biopsy and three Hemoclips placed. PREOPERATIVE DIAGNOSIS: Gastrointestinal bleed. POSTOPERATIVE DIAGNOSES: 1. Mild, distal grade 1 esophageal varices seen without stigmata of bleed or red danielle sign. 2. Mild nonerosive gastritis. 3. Well-healed ulcer seen at the antrum, status post biopsy and three Hemoclips placed due to mild bleeding after the biopsy site. ANESTHESIA: Monitored anesthesia care. COMPLICATIONS: None. BLOOD LOSS: Minimal. DESCRIPTION OF PROCEDURE: After risks and benefits explained to the patient, informed consent was obtained. After anesthesia administered, upper endoscope was inserted in the mouth and intubated the esophagus, stomach, second portion of duodenum and were closely examined. After procedure, the endoscope was withdrawn and the procedure terminated. FINDINGS: In the patient's esophagus, there were mild grade 1 esophageal varices that were seen in the distal esophagus without red danielle sign and no stigmata recent bleed Upon entering the stomach, there was mild nonerosive gastritis seen throughout the entire stomach. There was also a well-healed ulcer seen at the antrum. Retroflexion was normal. Duodenal bulb, first and second portion were normal. Biopsy taken of antrum, body of stomach and gastric ulcer. After the biopsy of the gastric ulcer, there was mild bleeding. There were three Hemoclips placed with good hemostasis. IMPRESSIONS: 1. Grade 1 esophageal varices, nonbleeding, without red danielle sign. 2. Mild nonerosive gastritis. 3. Well-healed ulcer at the antrum, status post biopsy and three Hemoclips placed. RECOMMENDATIONS: 1. Stop Protonix drip. 2. Protonix for 40 mg by mouth twice a day. 3. Carafate 1 g by mouth four times a day. 4. GoLYTELY prep tonight for colonoscopy with anesthesia tomorrow at 9 a.m. [facility]
[2016-06-15] MEDS ORDERED: LORazepam 0.5 mg Tablet PO ONE (22:15)
[2016-06-16] VITALS (10 sets, daily range): BP systolic 90–110; BP diastolic 50–74; PULSE 58–78; RESP 14–24; O2SAT 96–100
[2016-06-16] MEDS: Pantoprazole Inj 80 MG in 0.9% Sodium Chloride 80 ML IV SCH ×2 (02:43→16:26)
--- NOTE | 2016-06-16 03:37 | NUR ---
Bowel prep: Pt encouraged with bowel prep all evening, pt would only take small sips at a time. By midnight, pt only able to drink 1/2 of the prep. Has been incontinent of stool x3 thus far. Stool becoming more liquid, smaller amounts of brown loose stool. Pt confused, pulling off tele at times, is aware. YVROSE was able to place tele back on pt. Addendum: 06/16/16 at 0609 by ELLIOT BLOUNT RN This morning, stool mostly all liquid, very small amount of light brown flecks in brief.
[2016-06-16] MEDS ORDERED: GABA-502 PO (04:07)
[2016-06-16] MEDS ORDERED: CHOL500011 PO (04:07)
[2016-06-16] MEDS ORDERED: LIDO5CRE17 TOPICAL (04:07)
[2016-06-16] MEDS: 0.9% Sodium Chloride 1,000 ML IV SCH ×3 (06:26→22:12)
[2016-06-16 06:48] LABS: Mean Corpuscular Volume 95.6 fL (81-100)
[2016-06-16 07:09] LABS: Magnesium 1.8 mg/dL (1.6-2.6)
[2016-06-16] MEDS ORDERED: Calcium Chl 10% (Gm) Inj 1 GM in Dextrose 5% 100 ML IV ONE (08:05)
[2016-06-16] MEDS ORDERED: KCl 40 mEq/D5W 500 mL 40 MEQ in IV Premix 1 EACH IV ONE (08:05)
[2016-06-16] MEDS ORDERED: Lactated Ringer's 1,000 ML IV ONE (08:31)
[2016-06-16] MEDS ORDERED: 0.9% Sodium Chloride 250 ML ONE (08:49)
--- NOTE | 2016-06-16 09:00 | NUR ---
Off unit Pt off unit to Endo, retail merchandiser technician notified. K+ hung prior to leaving unit.
--- NOTE | 2016-06-16 10:08 | PCM.ANEP1 ---
Post Anesthesia Phase 1 PACU Phase 1 Assessment Date of Service: Jun 16, 2016 Vital Signs Vital Signs Date Time Temp Pulse Resp B/P Pulse Ox O2 Delivery O2 Flow Rate FiO2 06/16/16 05:49 36.9 73 18 99/50 98 Room Air Anesthetic Administered: GA, MAC Level of Alertness: Drowsy, not talking SAMUELS's with Equal Strength: Yes Pain: No Nausea or Vomiting: No Oxygen Delivery: Nasal Cannula Lungs: Normal Air Movement Dermatome Level: Full Sensation Mark Siegel MD Jun 16, 2016 10:08
--- NOTE | 2016-06-16 10:09 | PCM.ANEP2 ---
Post Anesthesia Evaluation ASA/CMS Post Anesthesia Date of Service: Jun 16, 2016 VS in Patient's Normal Range?: Yes Resp Stable; Airway Patent?: Yes CV Function & Hydration Stable: Yes Mental Status Recovered?: Yes Pain control Satisfactory?: Yes N/V Control Satisfactory?: Yes Mark Siegel MD Jun 16, 2016 10:08
--- NOTE | 2016-06-16 10:12 | PCM.HPANE ---
Patient Data Date of Service: Jun 16, 2016 Surgeon Admitting Provider:Bhavin Srinivasan MD Attending Provider: Primary Care Physician:Nopcp Other Provider: Reason for Visit Gi Bleed Ht/WT & BMI Height (Feet): 5 Height (Inches): 1.50 Weight (Kilograms): 56.800 Body Mass Index 23.00 Allergies Coded Allergies: No Known Allergies (Verified , 06/14/16) Past Anesthesia History Anesthesia History: Denies:: Abnormal Airway, Anesthesia Reactions, Difficult Intubation, Fam Anesthesia Reaction, Fam Malignant Hypertherm, Malignant Hyperthermia Diabetes History Hx Diabetes?: No MRSA MRSA: No Medications Hypertension Medication: No Home Meds Incl Beta Kathleen: No Active Scripts Potassium Chloride 20 Meq Tab.er.prt20 Meq PO DAILY 30 Days Ref 0 TAKE WITH FOOD Prov:Rafael Biggs DO 02/14/16 Albuterol Sulfate (Ventolin HFA Inhaler)200 Puff/18 Gm Inhaler2 Puff INHALATION Q4H PRN For Shortness of Breath 30 Days Prov:Rafael Biggs DO 02/14/16 Lorazepam 0.5 Mg Tablet0.5 Mg PO Q6H PRN For Anxiety #10 TABLET Ref 0 Prov:Rafael Biggs DO 02/14/16 Levothyroxine 137 Mcg [id number] Mcg PO DAILY 30 Days Prov:Rafael Biggs DO 02/14/16 Multivitamin (Multi Vitamin Daily)1 Each Tablet1 Each PO DAILY 30 Days Ref 0 Prov:Rafael Biggs DO 02/14/16 Reported Medications Lidocaine Cream 5 Gm Cream..g.1 Applic TOPICAL 06/16/16 Cholecalciferol (Vitamin D3) (Vitamin D3)5,000 Unit Tablet5,000 Unit PO DAILY 06/16/16 Gabapentin 300 Mg [id number] Mg PO TID Ref 0 06/16/16 Discontinued Scripts Hydrocodone-Acetaminophen 5-325 mg 1 Each Tablet1 Tablet PO Q4H PRN For Pain # 20 TABLET Ref 0 Prov:Rafael Biggs DO 02/14/16 Cholecalciferol (Vitamin D3) (Vitamin D3)2,000 Unit Capsule2,000 Unit PO DAILY 30 Days Prov:Rafael Biggs DO 02/14/16 [place]-3 Fatty Acids/Fish Oil ([place] 3 1,000 mg Softgel)1 Each Capsule1 Capsule PO DAILY 30 Days Prov:Rafale Biggs DO 02/14/16 Furosemide 40 Mg [id number] Mg PO DAILY #30 Prov:Rafael Biggs DO 02/14/16 Thiamine Mononitrate (Vitamin B-1)100 Mg [id number] Mg PO DAILY 14 Days Prov:Rafael Biggs DO 02/14/16 Ibuprofen 600 Mg [id number] Mg PO TIDWM PRN For Pain #40 TABLET Ref 0 Prov:Rafael Biggs DO 02/14/16 Folic Acid 1 Mg Tablet1 Mg PO DAILY 30 Days Prov:Rafael Biggs DO 02/14/16 History History of ENT Problems?: Yes HEENT History: Positive for:: Sinus Problem ("sinus surgery") Denies:: Abnormal Airway Cataracts Difficult Intubation Dysphagia Hearing Problem Hx of Heart Problems?: Yes Cardiovascular History: Positive for:: Atrial Fibrillation Chest Pain Irregular Heartbeat (Paroxysmal A. Fib. ) Denies:: Cardiac Surgery Congestive Heart Failure Edema Heart Murmur Hypertension Pacemaker Thrombophlebitis Hx of Respiratory Problem?: Yes Respiratory History: Positive for:: Asthma Tuberculosis Denies:: COPD Chest Surgery Dyspnea Emphysema Hemoptysis Pneumonia Hx Neurologic Problems?: Yes Neurological History: Positive for:: Dementia Headaches Denies:: Alzheimer's Disease CVA Dizziness Parkinson's Disease Seizures Hx of GI Problems?: Yes Gastrointestinal History: Positive for:: Cirrhosis Diverticulitis (Colon resection mid ) Gastroesphageal Reflux (radha procedure) Gastrointestinal Bleeding Hepatitis (Liver disease. Steatohepatitis. Cirrhosis.) Hiatal Hernia (repaired- Radha procedure 2001) Denies:: Heartburn Rectal Bleeding Hx of Problems?: No Genitourinary History: Positive for:: Urinary Tract Infection Denies:: HX of Hemodialysis Kidney Stones HX of Peritoneal Dialysis: No Female Hx: Denies:: Currently Endometriosis Pelvic Inflammatory Problems with Breasts? Hx Musculoskeletal Problems?: Yes Musculoskeletal History: Positive for:: Back Injury Joint Replacement (Rt hip surg X2) Denies:: Musculoskeletal Trauma Hx of Psycho/Social Problems?: Yes Psycho Social History: Positive for:: Anxiety Hx Depression Denies:: Bipolar Disorder Suicide Attempt Hx Surgeries?: Yes (Colon resection,Radha fundoplication,NATEB.Sinus nasoplasty, rt hip) Hx Any Other Health Problems?: Yes Other History: Positive for:: Hospitalization (liver issues 2010) Thyroid Disease (Takes Synthroid. ) Denies:: Cancer Endocrine Disease History Blood Transfusions: Positive for:: Accept Blood Products? Denies:: Blood Transfuse Reaction Blood Transfusions Hx Diabetes: No Hx Alcohol Use: Yes (per drinks 3-4 drinks of vodka daily, and wine daily)Hx Substance Use: No Smoking Status: Former Smoker Have You Smoked inLast 12 mo: No Stop/Bang SYLVIA Risk Assessment: Low Risk, <3 Yes Risk Assessment Category Category 1A: Patient has history of documented sleep apnea, and HAS NOT received any narcotic, sedative or anesthesia administration during this stay. Category 1B: Patient has history of documented sleep apnea, and HAS received any narcotic , sedative or anesthesia administration during this stay Category 2: Patient has SUSPECTED Obstructive Sleep Apnea, and HAS received any narcotic , sedative or anesthesia administration during this stay. Category 3: Patient has SUSPECTED Obstructive Sleep Apnea and HAS NOT received narcotic, sedative or anesthesia administration during this stay. Category 4: Outpatient in Procedural Areas with known sleep apnea or who screen positive for High Risk via the STOP/BANG questionnaire. Exam Exam Vital Signs Vital Signs Date Time Temp Pulse Resp B/P Pulse Ox O2 Delivery O2 Flow Rate FiO2 06/16/16 05:49 36.9 73 18 99/50 98 Room Air General Appearance: Oriented X3, Cooperative, No Acute Distress, Other ( Patient is somewhat sedate, but conversant and oriented) HEENT/AIRWAY: MP 3, Other (poor dentition) Lungs: Normal Air Movement, Coarse Heart: Exam Unremarkable, Regular Rate/Rhythm, No Murmurs/Rubs/Gallops Meds/Labs/Diagnostics Admission Meds Current Medications Polyethylene Glycol/ Electrolytes (Colyte) 4,000 ml 16 ONCE PO Last administered on 06/15/16 15:50; Start 06/15/16 at 16:00; Stop 06/15/16 at 16:01; Status DC Lorazepam (Ativan) 0.5 mg ONCE ONCE PO Last administered on 06/15/16 22:42; Start 06/15/16 at 22:15; Stop 06/15/16 at 22:20; Status DC Gabapentin 300 mg 300 mg ONCE PO Last administered on 06/15/16 22:42; Start 06/15/16 at 22:25 Potassium Chloride In D5W 40 meq/Premix 500 ml @ 125 mls/hr Q4H ONCE IV Last administered on 06/16/16 08:53; Start 06/16/16 at 08:05; Stop 1/2/17 at 12:04 Lactated Ringer's 1,000 ml @ ud STK-MED ONCE IV Last administered on 06/16/16 09:09; Start 06/16/16 at 08:31; Stop 06/16/16 at 08:32; Status DC Sodium Chloride (Normal Saline) 250 ml @ STK-MED ONCE .ROUTE Last administered on 06/16/16 08:53; Start 06/16/16 at 08:49; Stop 06/16/16 at 08:50; Status DC Labs Test 06/14/16 09:17 06/14/16 12:55 06/14/16 15:20 06/15/16 06:00 Prothrombin Time 14.7sec (8.1-12.5) Prothromb Time International Ratio 1.37ratio Prealbumin 8mg/dL (20-40) Urine Color Dark yellow (YELLOW) Urine Appearance Turbid (CLEAR,HAZY) Urine pH 6.0 (5.0-8.0) Urine Specific [place] 1.025 (1.003-1.035) Urine Protein 30mg/dL (NEG,TRACE) Urine Glucose (UA) mg/dL (NEGATIVE) Urine Ketones mg/dL (NEGATIVE) Urine Occult Blood Trace (NEGATIVE) Urine Nitrite Negative (NEGATIVE) Urine Bilirubin Moderate (NEGATIVE) Urine Ictotest Positive (Negative) Urine Urobilinogen mg/dL (NORMAL) Urine Leukocyte Esterase Trace (NEGATIVE) Urine RBC 0-2/hpf (0-2) Urine WBC 11-50/hpf (0-5) Urine Epithelial Cells Moderate/hpf (NONE-MOD) Urine Crystals None seen (NONE SEEN) Urine Bacteria Many/hpf (NONE-FEW) Urine Hyaline Casts None/lpf (NONE) Urine Granular Casts Rare (NONE SEEN) Urine Waxy Casts None seen (NONE SEEN) Urine Red Blood Cell Casts None seen (NONE SEEN) Urine White Blood Cell Casts None seen (NONE SEEN) Urine Mucus Present (None Seen) Urine Trichomonas None seen (NONE SEEN) Urine Yeast None (NONE SEEN) Urinalysis Comment Color interference Urine Culture Reflexed Indicated Urine Opiates Screen Negative Urine Methadone Screen Negative Urine Barbiturates Screen Negative Urine Amphetamines Screen Negative Urine Benzodiazepines Screen Negative Urine Cocaine Metabolite Screen Negative Urine Cannabinoids Screen Negative Alcohol, Quantitative < 10mg/dL (0-10) Neutrophils (%) (Auto) 57.7% (40-74) Lymphocytes (%) (Auto) 21.1% (14-46) Monocytes (%) (Auto) 15.5% (4-12) Eosinophils (%) (Auto) 3.1% (0-5) Basophils (%) (Auto) 0.9% (0-3) Total Bilirubin 2.2mg/dL (0.0-1.2) Aspartate Amino Transf (AST/SGOT) 108U/L (0-50) Alanine Aminotransferase (ALT/SGPT) 52U/L (0-32) Alkaline Phosphatase 110U/L (25-165) Total Protein 5.0g/dL (6.4-8.4) Albumin 2.2g/dL (3.4-5.0) Test 06/16/16 06:35 White Blood Count 3.7th/mm3 (3.8-10.1) Red Blood Count 2.70mil/mm3 (3.90-5.20) Hemoglobin 8.1g/dL (12.0-15.6) Hematocrit 25.8% (35.0-46.0) Mean Corpuscular Volume 95.6fL (81-100) Mean Corpuscular Hemoglobin 30.0pg (27.0-35.0) Mean Corpuscular Hemoglobin Concent 31.4% (32.0-37.0) Red Cell Distribution Width 21.7% (12.3-15.4) Platelet Count 90bil/L (150-400) Sodium Level 142mEq/L (134-144) Potassium Level 2.4mEq/L (3.5-5.2) Chloride Level 108mEq/L (97-108) Carbon Dioxide Level 22mmol/L (18-29) Blood Urea Nitrogen 5mg/dL (8-27) Creatinine < 0.30mg/dL (0.57-1.00) Estimat Glomerular Filtration Rate 315mL/min (>59) Glucose Level 91mg/dL (60-99) Calcium Level 6.8mg/dL (8.5-10.1) Magnesium Level 1.8mg/dL (1.6-2.6) Plan Impression Patient chart reviewed, patient interviewed and anesthestic plan with risks, benefits, and alternatives discussed, and informed consent obtained. NPO Status: >8h ASA Physical Status: ASA3 Severe Disease Anesthetic Plan: MAC Bene/Risks/Altern/Consents: Yes HP Complete Prior to Induction: Yes Other Patient's potassium is low, but currently being repleted and patient is possibly actively bleeding. Mark Siegel MD Jun 16, 2016 09:26
[2016-06-16] MEDS ORDERED: Propofol 10,000 mCg/mL 20 mL Inj ONE (10:42)
[2016-06-16] MEDS: Multivit-Miner-Folic Acid-Iron Tablet PO SCH (11:03)
--- NOTE | 2016-06-16 11:11 | NUR ---
Back on unit Pt back from Endo at 1030, TELE aware.
--- NOTE | 2016-06-16 13:22 | NUR ---
Social Work-continued d/c planning: data& assessment:EMR Reviewed. Pt is on day 1 of hospitalization for GI bleed per H&P. Pt will likely require another 1-2 days of hospitalization. SW followed up with pt and at bedside to further discuss,SW role explained. states it has been going well at home. reports pt can self transfer to w/c and then he pushes pt around. Pt had been at [facility], but has been home for sometime. SW discussed HH services, declining at this time, feeling like this would not be helpful. states pt's sister comes up 3 times a week to assist them at home. Pt's to provide transport home at discharge. SW will continue to follow. Plan:Pt to discharge home with when medically stable. R/O HH services. SW will continue to follow. JENELLE Goss
--- NOTE | 2016-06-16 13:28 | ENDO ---
[address] [address] ENDOSCOPY PROCEDURE PATIENT: NILA PRATT : 1945 MR#: [id number] ADMIT: 06/15/2016 JOB ID: [id number] TYPE OF OPERATION: Esophagogastroduodenoscopy and colonoscopy, biopsy. PREOPERATIVE DIAGNOSIS: Gastrointestinal bleed. POSTOPERATIVE DIAGNOSES: 1. Normal upper endoscopy, with hemoclips x3 seen at the prior upper endoscopy that was still intact at the at the healed ulcer site with no active bleeding on the upper endoscopy. 2. Mild diverticulosis in the sigmoid. 3. Two 2 mm polyps removed in the sigmoid colon by cold biopsy forceps. 4. A 3 mm polyp removed in the right colon. Status post one hemoclip placed. 5. Small internal hemorrhoids. ANESTHESIA: Monitored anesthesia care. COMPLICATIONS: None. BLOOD LOSS: Minimal. DESCRIPTION OF PROCEDURE: After risks and benefits explained to the patient, informed consent was obtained. After anesthesia administered, upper endoscope was inserted in mouth esophagus, stomach, second portion of duodenum, and the mucosa carefully examined. After procedure was done, the scope withdrawn Colonoscope was then inserted per rectum to cecum. examined. Prep of the patient was fair. After procedure was done, . FINDINGS: Upon entering the esophagus, esophagus was normal without masses, ulcers, or lesions. Z-line located at 38 cm from incisors. Upon entering stomach, there were three hemoclips that were seen that were still in place from prior upper endoscopy which was performed yesterday at a well-healed ulcer site. Retroflexion was normal. No active bleeding was seen. Duodenal bulb, first and second portion was normal. Upon inspection of the anus, no masses, hemorrhoids, ulcers, or fissures that were seen throughout the entire examination. There was mild nonbleeding sigmoid diverticulosis. There was also a 2 mm polyp seen in the sigmoid colon that was removed by cold biopsy forceps. There was a 3mm polyp removed in the right colon and ascending colon and one hemoclip was placed at the post polypectomy site due to slight oozing. No other polyps or masses were seen. Retroflexion showed small internal hemorrhoids. IMPRESSION: 1. Small internal hemorrhoids. 2. There were two 2 mm sigmoid colon polyps removed by cold biopsy forceps. 3. A 3 mm ascending colon polyp, removed by cold biopsy forceps and one hemoclip that was placed post polypectomy site due to oozing. 4. Mild sigmoid diverticulosis. 5. Three hemoclips seen at the upper endoscopy gastric well-healed ulcer site without evidence of bleeding. RECOMMENDATIONS: 1. Await pathology results. 2. If greater than 3 tubular adenoma polyps then next Colonoscopy in three years. If less than two tubular adenoma polyps, next colonoscopy in five years 4. Okay to discharge home today from GI standpoint. will sign off. MTDD
--- NOTE | 2016-06-16 13:40 | PCM.PNMED ---
Subjective Date of Service Jun 16, 2016 Subjective Patient reports that she is feeling very tired today. She states she has not been able to get any sleep in the hospital. Pt denies any overnight events. Pt denies any nausea, vomiting,abdominal pain, fevers or chills. Pt reports that other than being tired she is doing well. Pt denies any complaints or concerns this morning. Patient denies any more episodes of blood per rectum. Exam Vital Signs Vital Sign - Last Date Time Temp Pulse Resp B/P Pulse Ox O2 Delivery O2 Flow Rate FiO2 06/16/16 10:16 78 24 110/74 96 Room Air 06/16/16 10:10 4 06/16/16 05:49 36.9 Intake and Output 06/15/16 06/15/16 06/16/16 Cumulative From/Thru 15:00 23:00 07:00 06/14/16 09:02 - 06/16/16 06:41 Intake Total 1930 ml 680 ml 3331 ml 9461 ml Output Total 250 ml Balance 1930 ml 680 ml 3331 ml 9211 ml Intake Oral 480 ml 1500 ml 3500 ml IV Total 1930 ml 200 ml 1831 ml 5961 ml Output Urine Total 250 ml # Voids 3 4 9 # Bowel Movements 6 4 13 Exam General: No acute distress, frail appearing, appropriately interactive HEENT: Normocephalic, atraumatic. Pupils equal, round, and reactive to light and accommodation. Anicteric sclerae, moist conjunctivae. Oropharynx with moist mucosa. Neck: Supple with full range of motion. Cardiovascular: Regular rate and rhythm with no murmurs, rubs, or gallops appreciated Pulmonary: Clear to auscultation bilaterally with no crackles, wheezes, or rhonchi. Normal respiratory effort with no use of accessory muscles. Abdomen: Bowel tones present. Soft, nontender, nondistended. Extremities: Multiple areas of ecchymosis throughout upper and lower extremities. No edema Skin: Multiple skin tears on extremities, ecchymosis. Normal temperature. Psychiatric: Normal mood and affect. IVs and Medications Medications Reviewed: Medications were reviewed in detail Lab and Diagnostics Result Diagram: 06/16/16 0635 06/16/16 0635 X-Rays, CTs and MRIs PROCEDURE: X-RAY CHEST ONE VIEW, PORTABLE ([id number]) FINDINGS: Surgical changes and devices: None. Lungs and pleura: No pleural effusions or pneumothorax. Lungs are clear. Mediastinum: Mediastinal contours appear normal. Heart size is normal. There is aortic atherosclerosis. Bones and chest wall: No suspicious bony lesions. Overlying soft tissues appear unremarkable. IMPRESSION: No acute cardiopulmonary disease. Dictated by: Jordy Lopez M.D. on 06/14/2016 at 9:46 Approved by: Jordy Lopez M.D. on 06/14/2016 at 9:46 PROCEDURE: US ABDOMEN, LIMITED ([id number]) COMPARISON: [facility], CT, CT ABD PELVIS W CON, 01/25/2016, 20:39. FINDINGS: Solitary dependent nonmobile 1.4 cm shadowing gallstone is again noted. Gallbladder wall is thickened from 3-5 mm. No pericholecystic fluid. Extrahepatic bile duct is nondilated at 4.4 mm. IMPRESSION: Nonmobile 1.4 cm gallstone as well as gallbladder wall thickening, suspicious for evolving acute cholecystitis. Dictated by: Jordy Lopez M.D. on 06/14/2016 at 14:55 Approved by: Jordy Lopez M.D. on 06/14/2016 at 14:55 Assessment & Plan Acute GI bleed, present on admission, ongoing -EGD on 06/15/16 showing grade 1 esophageal varices, nonerosive gastritis" -Colonoscopy today( 06/16/16) -Protonix drip -Continue to monitor Alcohol abuse, present on admission, ongoing - CIWA protocol -Continue to monitor Acute hypokalemia. Present on admission. ongoing - Repleted with 40meq -Repeat labs this afternoon and in the AM Acute hypocalcemia, not present admission, ongoing -Repleted Calcium -Repeat labs this afternoon and in the AM Acute on chronic transaminitis, Present on admission, ongoing - AST/ALT elevated at 165/73 -Current alcohol abuse -Previous CT imaging showed "Significant interval diffuse low attenuation change in appearance of the liver compared to prior exam. This could represent significant interval steatosis. A more aggressive, widely diffuse infiltrative process cannot be definitively excluded. Correlation to laboratory enzyme levels as well as potential further evaluation with MRI with hepatic protocol is recommended, as indicated." Gallstones on US, chronicity unknown, present on admission, ongoing -US done in ER demonstrating "Nonmobile 1.4 cm gallstone as well as gallbladder wall thickening, suspicious for evolving acute cholecystitis." -Pt with benign abdominal exam, denying pain. -Continue to monitor Chronic anemia, present on admission, ongoing - Anemia of chronic disease, liver disease, alcohol habituation - Patient's hemoglobin and hematocrit are at her baseline -No intention to transfuse at this time Code status: Full code. DVT prophylaxis: Contraindicated and GI bleed Disposition: Likely home, pending hospital course tomorrow VTE Mechanical Devices: Intermittant Pneumatic CD Resuscitation Status: CPR: Attempt Resuscitation (discussed and confirmed with patient) Attending Statement The patient was seen and examined together with Dr. Whitehead on 06/16/2016 and I agree with the history, exam and plan as outlined in the note above. Radha Whitehead DO Jun 16, 2016 13:40 Raymond Bill MD Jun 16, 2016 20:51
[2016-06-16 16:21] LABS: BASOPHILS % (AUTO) 0.5 % (0-3); EOSINOPHILS % (AUTO) 3.1 % (0-5); MONOCYTES % (AUTO) 18.3 % (4-12); Mean Corpuscular Volume 95.8 fL (81-100); NEUTROPHILS % (AUTO) 57.9 % (40-74); Platelet Count 100 bil/L (150-400)
--- NOTE | 2016-06-16 16:59 | NUR ---
Case Management: IMM explained to patient and her spouse at 1615, signed by spouse Marciano Castorena. Signed copy placed in chart, copy given spouse. Jacqueline Cordova RN
[2016-06-16] MEDS ORDERED: cefTRIAXone Inj 2,000 MG in IV Premix 1 EACH IV ONE (18:00)
[2016-06-17] VITALS (7 sets, daily range): BP systolic 86–131; BP diastolic 49–77; PULSE 63–89; RESP 18–20; O2SAT 94–97
[2016-06-17] MEDS: Pantoprazole Inj 80 MG in 0.9% Sodium Chloride 80 ML IV SCH (01:29)
--- NOTE | 2016-06-17 04:52 | NUR ---
PO diet Pt alert and oriented. Anxious to eat, had clear liquid diet for dinner. Had applesauce with medications without any s/s of dysphagia, nausea or vomiting. Will continue to monitor, left room with call light at bedside.
[2016-06-17 06:18] LABS: BASOPHILS % (AUTO) 0.6 % (0-3); EOSINOPHILS % (AUTO) 2.6 % (0-5); MONOCYTES % (AUTO) 19.4 % (4-12); Mean Corpuscular Hemoglobin 31.3 pg (27.0-35.0); Mean Corpuscular Volume 95.9 fL (81-100); NEUTROPHILS % (AUTO) 50.2 % (40-74); Platelet Count 118 bil/L (150-400)
--- NOTE | 2016-06-17 08:45 | PCM.PNSURG ---
Subjective Date of Service: Jun 17, 2016 Date of Service: Jun 17, 2016 Subjective: hb 9.1 this am. No complaints Postop General: No Complaints Objective Vital Sign- Last 8 Hours Date Time Temp Pulse Resp B/P Pulse Ox O2 Delivery O2 Flow Rate FiO2 06/17/16 05:24 36.7 70 18 91/49 94 Room Air 06/17/16 01:15 36.9 72 18 102/64 95 Room Air Intake and Output- Last 8 Hour 06/17/16 Cumulative From/Thru 07:00 06/14/16 09:02 - 06/17/16 06:21 Intake Total 1904 ml 16226 ml Output Total 250 ml Balance 1904 ml 15160 ml Intake Oral 518 ml 4118 ml IV Total 1386 ml 8914 ml Output Urine Total 250 ml # Voids 2 13 # Bowel Movements 13 General: Alert Neck: Supple Lungs: Clear to Auscultation Heart: Exam Unremarkable Abdomen: Benign, Soft, Non-tender, Non-distended, Normoactive bowel tones Extremities: Distal Pulses Palpable Result Diagram: 06/17/16 0545 06/17/16 0545 Assessment & Plan Impression This is a 71-year-old, female with a history of Radha fundoplication , colon resection for diverticulitis in the past, cirrhosis, paroxysmal atrial fibrillation, alcohol abuse in the past, history of gastric ulcers and upper endoscopy in 2013, history of dementia, per history childhood asthma, sepsis in the past, history of UTI in June 2013, GERD. History of alcohol abuse, drinks 3-4 glasses of vodka per day along with wine for many years. Presents for consultation for bright red blood per rectum. In regards to her liver enzymes, this is most likely due to alcohol given her heavy alcohol history and AST to ALT ratio greater than 2:1 ratio. Her MELD score is 12 at this point in time, if in fact the patient does have cirrhosis. The patient's current Maddrey discriminant function score is 12 at this time and does not require steroids. Currently, the patient does not have, per the nursing staff, and has not had any rectal bleeding while she is in-house here. s/p egd 06/15/16- IMPRESSIONS: 1. Grade 1 esophageal varices, nonbleeding, without red danielle sign. 2. Mild nonerosive gastritis. 3. Well-healed ulcer at the antrum, status post biopsy and three Hemoclips placed. RECOMMENDATIONS: 1. Stop Protonix drip. 2. Protonix for 40 mg by mouth twice a day. 3. Carafate 1 g by mouth four times a day. 4. GoLYTELY prep tonight for colonoscopy with anesthesia tomorrow at 9 a.m. s/p colon 06/16/16- IMPRESSION: 1. Small internal hemorrhoids. 2. There were two 2 mm sigmoid colon polyps removed by cold biopsy forceps. 3. A 3 mm ascending colon polyp, removed by cold biopsy forceps and one hemoclip that was placed post polypectomy site due to oozing. 4. Mild sigmoid diverticulosis. 5. Three hemoclips seen at the upper endoscopy gastric well-healed ulcer site without evidence of bleeding. RECOMMENDATIONS: 1. Await pathology results. 2. If greater than 3 tubular adenoma polyps then next Colonoscopy in three years. If less than two tubular adenoma polyps, next colonoscopy in five years 4. Okay to discharge home today from GI standpoint. Recs: 1. Alcohol cessation. 2. No steroids indicated for acute alcoholic hepatitis at this time given MDF score 12 on admission 3. Avoid NSAIDs. 4. high fiber diet 5. carafate 1g po qid 6. protonix 40mg po bid 7. ok to d/c home from gi standpoint will sign off Problems: Resuscitation Status: CPR: Attempt Resuscitation (discussed and confirmed with patient) Rafael Snell MD Jun 17, 2016 08:45
[2016-06-17] MEDS ORDERED: Potassium Chloride 20 mEq SR Tablet PO ONE (09:10)
[2016-06-17] MEDS ORDERED: Calcium Chl 10% (Gm) Inj 1 GM in Dextrose 5% 100 ML IV ONE (09:10)
[2016-06-17] MEDS ORDERED: KCl 40 mEq/D5W 500 mL 40 MEQ in IV Premix 1 EACH IV ONE (10:25)
[2016-06-17] MEDS ORDERED: Sucralfate 1,000 mg Tablet PO SCH (10:25)
[2016-06-17] MEDS ORDERED: Calcium GLUCO 10% (Gm) 1 Gm/10 mL 50 mL Inj IV ONE (10:30)
[2016-06-17] MEDS: Multivit-Miner-Folic Acid-Iron Tablet PO SCH (10:37)
[2016-06-17] MEDS ORDERED: Calcium GLUCOnate 10% 1 Gm/50 mL NS IV ONE ×2 (10:40)
[2016-06-17] MEDS: Pantoprazole 40 mg ER24 Tablet PO SCH ×2 (11:24→20:47)
[2016-06-17] MEDS: 0.9% Sodium Chloride 1,000 ML IV SCH (12:21)
[2016-06-17] MEDS: Sucralfate 100 mg/mL 10 mL Suspension PO SCH ×2 (15:49→20:47)
--- NOTE | 2016-06-17 16:05 | NUR ---
Wound Care Pressure ulcer protocol received. Pt seen at bedside. 71 yo female admitted for GI bleed. Skin assessed and no pressure issues are noted at this time.
--- NOTE | 2016-06-17 16:55 | PCM.PNMED ---
Subjective Date of Service Jun 17, 2016 Subjective Patient reports that she is doing well. She states that she is very tired and weak, but is eager to go home. Pt denies any abdominal pain, nausea, vomiting, diarrhea, hematochezia or melena. Pt denies any overnight events. Exam Vital Signs Vital Sign - Last Date Time Temp Pulse Resp B/P Pulse Ox O2 Delivery O2 Flow Rate FiO2 06/17/16 13:20 37.2 63 18 86/51 96 Room Air 06/16/16 10:10 4 Intake and Output 06/16/16 06/16/16 06/17/16 Cumulative From/Thru 15:00 23:00 07:00 06/14/16 09:02 - 06/17/16 06:21 Intake Total 200 ml 1467 ml 1904 ml 73239 ml Output Total 250 ml Balance 200 ml 1467 ml 1904 ml 89933 ml Intake Oral 100 ml 518 ml 4118 ml IV Total 200 ml 1367 ml 1386 ml 8914 ml Output Urine Total 250 ml # Voids 2 2 13 # Bowel Movements 0 13 Exam General: No acute distress, frail appearing, appropriately interactive HEENT: Normocephalic, atraumatic. Pupils equal, round, and reactive to light and accommodation. Anicteric sclerae, moist conjunctivae. Oropharynx with moist mucosa. Neck: Supple with full range of motion. Cardiovascular: Regular rate and rhythm with no murmurs, rubs, or gallops appreciated Pulmonary: Clear to auscultation bilaterally with no crackles, wheezes, or rhonchi. Normal respiratory effort with no use of accessory muscles. Abdomen: Bowel tones present. Soft, nontender, nondistended. Extremities: Multiple areas of ecchymosis throughout upper and lower extremities. No edema Skin: Multiple skin tears on extremities, ecchymosis. Normal temperature. Psychiatric: Normal mood and affect. IVs and Medications Medications Reviewed: Medications were reviewed in detail Lab and Diagnostics Result Diagram: 06/17/1654406/17/16544 X-Rays, CTs and MRIs PROCEDURE: X-RAY CHEST ONE VIEW, PORTABLE ([id number]) FINDINGS: Surgical changes and devices: None. Lungs and pleura: No pleural effusions or pneumothorax. Lungs are clear. Mediastinum: Mediastinal contours appear normal. Heart size is normal. There is aortic atherosclerosis. Bones and chest wall: No suspicious bony lesions. Overlying soft tissues appear unremarkable. IMPRESSION: No acute cardiopulmonary disease. Dictated by: Jordy Lopez M.D. on 06/14/2016 at 9:46 Approved by: Jordy Lopez M.D. on 06/14/2016 at 9:46 PROCEDURE: US ABDOMEN, LIMITED ([id number]) COMPARISON: [facility], CT, CT ABD PELVIS W CON, 01/25/2016, 20:39. FINDINGS: Solitary dependent nonmobile 1.4 cm shadowing gallstone is again noted. Gallbladder wall is thickened from 3-5 mm. No pericholecystic fluid. Extrahepatic bile duct is nondilated at 4.4 mm. IMPRESSION: Nonmobile 1.4 cm gallstone as well as gallbladder wall thickening, suspicious for evolving acute cholecystitis. Dictated by: Jordy Lopez M.D. on 06/14/2016 at 14:55 Approved by: Jordy Lopez M.D. on 06/14/2016 at 14:55 Assessment & Plan Acute GI bleed, present on admission, ongoing -EGD on 06/15/16 showing grade 1 esophageal varices, nonerosive gastritis" -Colonoscopy ( 06/16/16) demonstrating "Small internal hemorrhoids.There were two 2 mm sigmoid colon polyps removed by cold biopsy forceps.A 3 mm ascending colon polyp, removed by cold biopsy forceps and one hemoclip that was placed post polypectomy site due to oozing.Mild sigmoid diverticulosis. Three hemoclips seen at the upper endoscopy gastric well-healed ulcer site without evidence of bleeding." -Protonix 40mg BID per GI recommendations -Carafate 1g QID -Avoid nsaids. Use high fiber diet -Continue to monitor Acute urinary tract infection, present admission,ongoing -Urine culture positive for Klebsiella pneumoniae -Dickson sensitive culture -Pt received Ceftriaxone 2gm on 06/16/2016 -Pt started on PO Keflex today 06/17/2016 -Pt to be discharged on PO Keflex for 7 days total -Recommend outpatient follow up Acute hypokalemia. Present on admission. ongoing - Repleted -Repeat labs this afternoon and in the AM Acute hypocalcemia, not present admission, ongoing -Repleted Calcium -Repeat labs this afternoon and in the AM Alcohol abuse, present on admission, ongoing - CIWA protocol -Continue to monitor -Continue to encourage cessation of alcohol Acute on chronic transaminitis, Present on admission, ongoing - AST/ALT elevated at 165/73 -Likely secondary to alcohol use -Current alcohol abuse -Previous CT imaging showed "Significant interval diffuse low attenuation change in appearance of the liver compared to prior exam. This could represent significant interval steatosis. A more aggressive, widely diffuse infiltrative process cannot be definitively excluded. Correlation to laboratory enzyme levels as well as potential further evaluation with MRI with hepatic protocol is recommended, as indicated." -Maddrey score 12, no steroids indicated per GI Gallstones on US, chronicity unknown, present on admission, ongoing -US done in ER demonstrating "Nonmobile 1.4 cm gallstone as well as gallbladder wall thickening, suspicious for evolving acute cholecystitis." -Pt with benign abdominal exam, denying pain. -Continue to monitor Chronic anemia, present on admission, ongoing - Anemia of chronic disease, liver disease, alcohol habituation - Patient's hemoglobin and hematocrit are at her baseline -No intention to transfuse at this time Code status: Full code. DVT prophylaxis: Contraindicated and GI bleed Disposition: Likely home, pending hospital course tomorrow VTE Mechanical Devices: Intermittant Pneumatic CD Resuscitation Status: CPR: Attempt Resuscitation (discussed and confirmed with patient) Attending Statement The patient was seen and examined together with Dr. Whitehead on 06/17/2016 and I agree with the history, exam and plan as outlined in the note above. Radha Whitehead DO Jun 17, 2016 16:55 Raymond Bill MD Jun 18, 2016 09:53
[2016-06-17 17:20] LABS: BASOPHILS % (AUTO) 0.2 % (0-3); EOSINOPHILS % (AUTO) 2.2 % (0-5); MONOCYTES % (AUTO) 18.8 % (4-12); Mean Corpuscular Hemoglobin 30.6 pg (27.0-35.0); Mean Corpuscular Volume 96.2 fL (81-100); NEUTROPHILS % (AUTO) 56.9 % (40-74); Platelet Count 144 bil/L (150-400)
--- NOTE | 2016-06-17 19:26 | NUR ---
Activity/PO Assumed care of pt at 1530 from Antonio Gómez RN. Pt laying in bed, using bed traylor to void. Pt positioned Q2 hours to prevent b/d of skin and heels kept floated. Meds transitioning to PO, large pills taken in applesauce. Pt is eager to dc home tomorrow. Currently resting in bed which is in the lowest, locked position and call light in reach.
[2016-06-18 00:56] VITALS: BP 112/67; PULSE 76; RESP 18; O2SAT 96
[2016-06-18] MEDS: 0.9% Sodium Chloride 1,000 ML IV SCH ×2 (01:55→11:44)
--- NOTE | 2016-06-18 03:46 | NUR ---
activity Pt remained in bed for the shift, takes pills orally in applesauce. Uses briefs to void, able to use call light. Alert and oriented with occasional forgetfulness. Left room with call light at bedside.
[2016-06-18] MEDS: Sucralfate 100 mg/mL 10 mL Suspension PO SCH ×3 (04:03→13:38)
[2016-06-18 05:52] VITALS: BP 107/64; PULSE 74; RESP 18; O2SAT 96
[2016-06-18 06:10] LABS: BASOPHILS % (AUTO) 0.6 % (0-3); EOSINOPHILS % (AUTO) 1.9 % (0-5); MONOCYTES % (AUTO) 23.2 % (4-12); Mean Corpuscular Hemoglobin 31.2 pg (27.0-35.0); Mean Corpuscular Volume 95.3 fL (81-100); NEUTROPHILS % (AUTO) 52.2 % (40-74); Platelet Count 128 bil/L (150-400)
[2016-06-18] MEDS: Multivit-Miner-Folic Acid-Iron Tablet PO SCH (07:41)
[2016-06-18] MEDS: Pantoprazole 40 mg ER24 Tablet PO SCH (07:41)
[2016-06-18 10:41] VITALS: BP 107/69; PULSE 83; RESP 19; O2SAT 98
--- NOTE | 2016-06-18 10:49 | PATH ---
SURGICAL PATHOLOGY Attending Physician:Rafael Snell MD CASE STATUS: Signed Out PATIENT NAME: NILA PRATT PID: [id number] : 1945 DATE COLLECTED:06/16/2016 00:00 SPECIMEN: 1: Colon, Biopsy 2: Colon, Biopsy CLINICAL HISTORY: A: DESCENDING COLON POLYP X1 B: SIGMOID COLON POLYP X2 FINAL DIAGNOSIS: 1.DESCENDING COLON POLYP: TUBULAR ADENOMA. 2.SIGMOID COLON POLYPS: TUBULAR ADENOMAS (TWO). ICD10 CODE D12.6 GROSS DESCRIPTION: The specimen is received in two formalin filled containers labeled with the patient's name. 1). The specimen is sublabeled "descending colon polyp" and consists of a 0.3 x 0.3 x 0.3 CM portion of tissue which is entirely submitted in cassette 1A. 2). The specimen is sublabeled "sigmoid colon polyps" and consists of 3 portions of tissue which aggregate to 0.3 x 0.3 x 0.2 CM. The specimen is entirely submitted in cassette 2A. 06/17/2016 [facility] MICRO DESCRIPTION: See diagnosis. ICD-9 CODES: CPT CODES: 1: 11256 2: 58575 Electronically Signed Out Sorin Wong MD [facility] [address], [place] [address] Technical component performed at [facility], [address] [place] [address] Ave[address], [place], [address]
[2016-06-18 10:52] VITALS: PULSE 75
--- NOTE | 2016-06-18 11:59 | PATH ---
SURGICAL PATHOLOGY Attending Physician:Rafael Snell MD CASE STATUS: Signed Out PATIENT NAME: NILA PRATT PID: [id number] : 1945 DATE COLLECTED:06/15/2016 00:00 SPECIMEN: 1: Stomach, Antrum, Biopsy 2: Stomach, Antrum, Biopsy 3: Gastric, Biopsy CLINICAL HISTORY: A: ANTRUM BIOPSY B: ANTRUM ULCER BIOPSY C: GASTRIC BODY BIOPSY FINAL DIAGNOSIS: 1.GASTRIC ANTRUM, BIOPSY: GASTRIC ANTRUM WITH CHRONIC GASTRITIS. Negative for Helicobacter organisms. Negative for intestinal metaplasia. No evidence of dysplasia or malignancy. 2.GASTRIC ANTRUM, ULCER, BIOPSY: GASTRIC ANTRUM WITH CHRONIC GASTRITIS. Negative for Helicobacter organisms. Negative for intestinal metaplasia. No evidence of dysplasia or malignancy. 3.GASTRIC BODY, BIOPSY: GASTRIC CORPUS WITH MILD CHRONIC GASTRITIS. Negative for Helicobacter organisms. Negative for intestinal metaplasia. No evidence of dysplasia or malignancy. ICD10 CODE K29.70 GROSS DESCRIPTION: The specimen is received in three formalin filled containers labeled with the patient's name. 1). The specimen is sublabeled "antrum" and consists of 3 portions of tissue which aggregate to 0.3 x 0.3 x 0.2 CM. The specimen is entirely submitted in cassette 1A. 2). The specimen is sublabeled "antrum ulcer" and consists of a 0.4 x 0.3 x 0.3 CM portion of tissue which is entirely submitted in cassette 2A. 3). The specimen is sublabeled "gastric body" and consists of a 0.5 x 0.3 x 0.2 CM portion of tissue which is entirely submitted in cassette 3A. 06/17/2016 [facility] MICRO DESCRIPTION: See diagnosis. ICD-9 CODES: CPT CODES: 1: 73877 2: 41953 3: 75938 Electronically Signed Out Sorin Wong MD [facility], [place] [address] Technical component performed at [facility], [facility] [address], [place], [address]
[2016-06-18] MEDS ORDERED: CEPH500C PO (12:36)
--- NOTE | 2016-06-18 12:43 | PCM.DIMED ---
Radha Whitehead DO 06/18/16 1243: Discharge Instructions Date of Service Jun 18, 2016 Dates of Hospitalization Jun 14, 2016 at 12:10 Discharge Diagnosis Discharge Diagnosis Acute GI bleed Acute urinary tract infection Acute hypokalemia. Acute hypocalcemia, Alcohol abuse Acute on chronic transaminitis Gallstones on US, chronicity unknown, Chronic anemia, Code status: Full code. Medication Instructions Please take Protonix twice daily. Continue all your other home medications Avoid using NSAIDs like aleve or ibuprofen. Diet No restrictions Activity No restrictions Call your provider Fever or Chills, Shortness of breath, Bleeding, Chest pain, Excessive diarrhea, Weakness (unilateral) Patient Instructions Please take Protonix twice daily. Continue all your other home medications Avoid using NSAIDs like aleve or ibuprofen. We recommend that you stop using alcohol as it is detrimental to your health. Please follow up with your primary care provider regarding this hospitalization and getting help with your alcohol use. Follow-up Provider: Odette Thomas Follow-up with PCP in: 1 week Raymond Bill MD 06/19/16 1029: Radha Whitehead DO Jun 18, 2016 12:43 Raymond Bill MD Jun 19, 2016 10:29
--- NOTE | 2016-06-18 13:11 | NUR ---
Social Work: Discharge Data: Pt is on day 4 of hospitalization. EMR reviewed, d/c orders are in. [employer] met with pt and spouse at bedside. No need for HH at this time. They state pt's spouse will transport home today and have no further needs from [employer] at this time. [employer] will continue to follow if needs arise. Assessment: Pt who is independent at baseline. Plan: Pt will d/c home via POV with spouse today. No further needs from [employer] at this time. [employer] will continue to follow if needs arise. JENELLE Zuniga
--- NOTE | 2016-06-18 14:19 | NUR ---
discharge Patient is alert and states," i want to go home before discharge." reviewed discharge paper work and new prescription for antibiotic with patient and spouse and understood. written care noted provided and understood. patient signed discharge paperwork and understood and with agreement to go home. discontinued IV with out difficulty and patient in agreement. NAC helped patient dressed up and patient stated," let me rest for few more minutes, let me gather my thoughts." paged Dr Radha Whitehead. charge nurse aware. security was called in. Radha Whitehead and Dr bansal are on the floor and aware. patient discharged aprox 1420 with via wheel chair, NAC and security.
--- NOTE | 2016-06-18 17:19 | PCM.DC.MED ---
Discharge Summary Date of Service Jun 18, 2016 Dates of Hospitalization Date of Hospital Admission Jun 14, 2016 at 12:10 Date of Discharge: Jun 18, 2016 Providers: Admitting Physician: Bhavin Srinivasan MD Primary Care Physician: Andrez Attending Physician: Diagnosis at Time of Discharge Diagnosis at Time of Discharge Acute GI bleed Acute urinary tract infection Acute hypokalemia. Acute hypocalcemia, Alcohol abuse Acute on chronic transaminitis Gallstones on US, chronicity unknown, Chronic anemia, Code status: Full code. Procedures XRay, CTs & MRIs PROCEDURE: X-RAY CHEST ONE VIEW, PORTABLE ([id number]) FINDINGS: Surgical changes and devices: None. Lungs and pleura: No pleural effusions or pneumothorax. Lungs are clear. Mediastinum: Mediastinal contours appear normal. Heart size is normal. There is aortic atherosclerosis. Bones and chest wall: No suspicious bony lesions. Overlying soft tissues appear unremarkable. IMPRESSION: No acute cardiopulmonary disease. Dictated by: Jordy Lopez M.D. on 06/14/2016 at 9:46 Approved by: Jodry Lopez M.D. on 06/14/2016 at 9:46 PROCEDURE: US ABDOMEN, LIMITED ([id number]) COMPARISON: [facility], CT, CT ABD PELVIS W CON, 01/25/2016, 20:39. FINDINGS: Solitary dependent nonmobile 1.4 cm shadowing gallstone is again noted. Gallbladder wall is thickened from 3-5 mm. No pericholecystic fluid. Extrahepatic bile duct is nondilated at 4.4 mm. IMPRESSION: Nonmobile 1.4 cm gallstone as well as gallbladder wall thickening, suspicious for evolving acute cholecystitis. Dictated by: Jordy Lopez M.D. on 06/14/2016 at 14:55 Approved by: Jordy Lopez M.D. on 06/14/2016 at 14:55 Brief History History is limited as patient and her are poor historians. 71 yr old female with history of Radha fundoplication, colon resection, diverticulitis, cirrhosis,paroxysmal afib and alcohol abuse presented to the ED via EMS due to bright red blood per rectum that began last night. Pt and her report that last night after a bowel movement, they noticed bright red blood in her stool. Pt reports she has never experienced anything like this in the past. Pt denies any other symptoms, other than her chronic right hip pain. Pt's reports that she has been getting progressively weaker over the past few weeks.Pt denies nausea, vomiting, diarrhea, abdominal pain, fevers or chills. Pt denies any lightheadedness or dizziness. Pt and deny any previous episodes of hematochezia and deny any episodes of melena. Pt reports that she has chronic hip pain, and denies using NSAIDs for the pain. She reports she was previously taking oxycodone, but this was discontinued by her PCP and now she takes Gabapentin, which she feels does not help her pain. Pt reports that she had a colonoscopy and EGD 5 years ago, and was told everything was normal. Pt's reports she has a history of colon polyps. Pt reports that her mother had colon cancer, but denies any family history of celiac disease or IBS. Of note, pt has history of alcoholism with multiple admissions. Pt admits to drinking 1 glass of wine nightly, reports that she additionally drinks 3 -4 glasses of vodka as well( did not specify size of glass). Review of records note that both the patient and her have history of alcohol abuse. Pt reports her last alcoholic drink was sometime in the afternoon of 06/13/2016. Pt and deny any history of withdrawal seizures. While in the ER, temp 37.1, HR104, RR20, BP 93/51, 99% on RA. Pt received fluids while in the ER. Hgb and Hct in ER 9.6/29.7 respectively, no transfusion given. Blood alcohol level less than 10. Hospital Course 71 yr old female with history of Radha fundoplication, colon resection, diverticulitis, cirrhosis,paroxysmal afib and alcohol abuse presented to the ED via EMS due to bright red blood per rectum that began the night prior to admission. During hospitalization, pt underwent EGD and Colonoscopy. Of note, pt has history of alcoholism with multiple admissions. Pt admits to drinking 1 glass of wine nightly, reports that she additionally drinks 3-4 glasses of vodka as well( did not specify size of glass). Review of records note that both the patient and her have history of alcohol abuse. Pt reports her last alcoholic drink was sometime in the afternoon of 06/13/2016. Pt and deny any history of withdrawal seizures. Patient was placed on CIWA protocol during the hospitalization. Pt was discharged home in stable condition with family. Pt advised to follow up with her primary care provider. Acute GI bleed -EGD on 06/15/16 showing grade 1 esophageal varices, nonerosive gastritis" -Colonoscopy ( 06/16/16) demonstrating "Small internal hemorrhoids.There were two 2 mm sigmoid colon polyps removed by cold biopsy forceps.A 3 mm ascending colon polyp, removed by cold biopsy forceps and one hemoclip that was placed post polypectomy site due to oozing.Mild sigmoid diverticulosis. Three hemoclips seen at the upper endoscopy gastric well-healed ulcer site without evidence of bleeding." -Protonix 40mg BID per GI recommendations -Avoid nsaids. Use high fiber diet Acute urinary tract infection,ongoing -Urine culture positive for Klebsiella pneumoniae -Pt received Ceftriaxone 2gm on 06/16/2016 -Pt discharged on PO Keflex for 7 days total -Recommend outpatient follow up Acute hypokalemia. -Recommend outpatient follow up Acute hypocalcemia -Recommend outpatient follow up Alcohol abuse, - CIWA protocol initiated in hospital. -Continue to encourage cessation of alcohol Acute on chronic transaminitis, - AST/ALT elevated at 165/73 -Likely secondary to alcohol use -Current alcohol abuse -Previous CT imaging showed "Significant interval diffuse low attenuation change in appearance of the liver compared to prior exam. This could represent significant interval steatosis. A more aggressive, widely diffuse infiltrative process cannot be definitively excluded. Correlation to laboratory enzyme levels as well as potential further evaluation with MRI with hepatic protocol is recommended, as indicated." Gallstones on US, chronicity unknown, -US done in ER demonstrating "Nonmobile 1.4 cm gallstone as well as gallbladder wall thickening, suspicious for evolving acute cholecystitis." -Pt with benign abdominal exam, denying pain. Chronic anemia, - Anemia of chronic disease, liver disease, alcohol habituation - Patient's hemoglobin and hematocrit are at her baseline Code status: Full code. Exam Vital Signs (Last) Date Time Temp Pulse Resp B/P Pulse Ox O2 Delivery O2 Flow Rate FiO2 06/18/16 10:52 75 06/18/16 10:41 36.2 19 107/69 98 Room Air 06/16/16 10:10 4 Exam General: No acute distress, frail appearing, appropriately interactive HEENT: Normocephalic, atraumatic. Pupils equal, round, and reactive to light and accommodation. Anicteric sclerae, moist conjunctivae. Oropharynx with moist mucosa. Neck: Supple with full range of motion. Cardiovascular: Regular rate and rhythm with no murmurs, rubs, or gallops appreciated Pulmonary: Clear to auscultation bilaterally with no crackles, wheezes, or rhonchi. Normal respiratory effort with no use of accessory muscles. Abdomen: Bowel tones present. Soft, nontender, nondistended. Extremities: Multiple areas of ecchymosis throughout upper and lower extremities. No edema Skin: Multiple skin tears on extremities, ecchymosis. Normal temperature. Psychiatric: Normal mood and affect. Test 06/14/16 09:17 06/14/16 12:55 06/14/16 15:20 06/16/16 06:35 Prothrombin Time 14.7sec (8.1-12.5) Prothromb Time International Ratio 1.37ratio Urine Color Dark yellow (YELLOW) Urine Appearance Turbid (CLEAR,HAZY) Urine pH 6.0 (5.0-8.0) Urine Specific [place] 1.025 (1.003-1.035) Urine Protein 30mg/dL (NEG,TRACE) Urine Glucose (UA) mg/dL (NEGATIVE) Urine Ketones mg/dL (NEGATIVE) Urine Occult Blood Trace (NEGATIVE) Urine Nitrite Negative (NEGATIVE) Urine Bilirubin Moderate (NEGATIVE) Urine Ictotest Positive (Negative) Urine Urobilinogen mg/dL (NORMAL) Urine Leukocyte Esterase Trace (NEGATIVE) Urine RBC 0-2/hpf (0-2) Urine WBC 11-50/hpf (0-5) Urine Epithelial Cells Moderate/hpf (NONE-MOD) Urine Crystals None seen (NONE SEEN) Urine Bacteria Many/hpf (NONE-FEW) Urine Hyaline Casts None/lpf (NONE) Urine Granular Casts Rare (NONE SEEN) Urine Waxy Casts None seen (NONE SEEN) Urine Red Blood Cell Casts None seen (NONE SEEN) Urine White Blood Cell Casts None seen (NONE SEEN) Urine Mucus Present (None Seen) Urine Trichomonas None seen (NONE SEEN) Urine Yeast None (NONE SEEN) Urinalysis Comment Color interference Urine Culture Reflexed Indicated Urine Opiates Screen Negative Urine Methadone Screen Negative Urine Barbiturates Screen Negative Urine Amphetamines Screen Negative Urine Benzodiazepines Screen Negative Urine Cocaine Metabolite Screen Negative Urine Cannabinoids Screen Negative Alcohol, Quantitative < 10mg/dL (0-10) Magnesium Level 1.8mg/dL (1.6-2.6) Test 06/17/16 05:45 06/18/16 05:53 Prealbumin 6mg/dL (20-40) White Blood Count 4.8th/mm3 (3.8-10.1) Red Blood Count 3.01mil/mm3 (3.90-5.20) Hemoglobin 9.4g/dL (12.0-15.6) Hematocrit 28.7% (35.0-46.0) Mean Corpuscular Volume 95.3fL (81-100) Mean Corpuscular Hemoglobin 31.2pg (27.0-35.0) Mean Corpuscular Hemoglobin Concent 32.8% (32.0-37.0) Red Cell Distribution Width 22.1% (12.3-15.4) Platelet Count 128bil/L (150-400) Neutrophils (%) (Auto) 52.2% (40-74) Lymphocytes (%) (Auto) 21.5% (14-46) Monocytes (%) (Auto) 23.2% (4-12) Eosinophils (%) (Auto) 1.9% (0-5) Basophils (%) (Auto) 0.6% (0-3) Sodium Level 137mEq/L (134-144) Potassium Level 3.6mEq/L (3.5-5.2) Chloride Level 106mEq/L (97-108) Carbon Dioxide Level 21mmol/L (18-29) Blood Urea Nitrogen 3mg/dL (8-27) Creatinine 0.38mg/dL (0.57-1.00) Estimat Glomerular Filtration Rate 240mL/min (>59) Glucose Level 167mg/dL (60-99) Calcium Level 7.6mg/dL (8.5-10.1) Total Bilirubin 1.0mg/dL (0.0-1.2) Aspartate Amino Transf (AST/SGOT) 97U/L (0-50) Alanine Aminotransferase (ALT/SGPT) 42U/L (0-32) Alkaline Phosphatase 163U/L (25-165) Total Protein 4.9g/dL (6.4-8.4) Albumin 2.2g/dL (3.4-5.0) Microbiology Results Microbiology BILL CULT URINE Final 06/16/16 Organism 1 KLEBSIELLA PNEUMONIAE U COLONY COUNT/QUANTITY >100,000 CFU/ml KLEBSIELLA PNEUMONIAE Cefazolin-predicts results for the oral agents, cefaclor,cefdinir, cefpodoximen, cefprozil, cefuroximne axetil, cephalexin and loracarbed when used for therapy of uncomplicated UTI's due to E. coli, K. pneumoniae, and Proteus mirabilis. Cefpodoxime, cefdinir and cefuroxime axetil may be tested individually because some isolates may be susceptible to these agents while testing resistant to cefazolin. (CLSI V708-P27 pg 53) 1. KLEBSIELLA PNEUMONIAE M.I.C Interp --------- ------ * AMOXICILLIN/CLAVULATE <=2 S * AMPICILLIN >=32 R * CEFAZOLIN (CEPHALOSPORIN) UTI 4 S * CEFEPIME <=1 S * CEFTRIAXONE <=1 S * CEFUROXIME SODIUM 4 S * CIPROFLOXACIN <=0.25 S * ERTAPENEM <=0.5 S * GENTAMICIN <=1 S * IMIPENEM <=1 S * LEVOFLOXACIN <=0.12 S * NITROFURANTOIN <=16 S * TETRACYCLINE 4 S * TOBRAMYCIN <=1 S * TRIMETHOPRIM/SULFAMETHOXAZOLE <=20 S Discharge Medications Discharge Medications Cephalexin (Cephalexin) 500 Mg Capsule 500 MG PO QID Prescribed by: VIOLETTE OMALLEY DO Cholecalciferol (Vitamin D3) (Vitamin D3) 5,000 Unit Tablet 5,000 UNIT PO DAILY (Reported) Gabapentin (Gabapentin) 300 Mg Capsule 300 MG PO TID (Reported) Levothyroxine (Levothyroxine) 137 Mcg Tablet 137 MCG PO DAILY Prescribed by: ANNA ALCARAZ DO Multivitamin (Multi Vitamin Daily) 1 Each Tablet 1 EACH PO DAILY Prescribed by: ANNA ALCARAZ DO Potassium Chloride (Potassium Chloride) 20 Meq Tab.er.prt 20 MEQ PO DAILY TAKE WITH FOOD Prescribed by: ANNA ALCARAZ DO As needed Albuterol Sulfate (Ventolin HFA Inhaler) 200 Puff/18 Gm Inhaler 2 PUFF INHALATION Q4H PRN PRN For Shortness of Breath Prescribed by: ANNA D ALCARAZ, DO Lorazepam (Lorazepam) 0.5 Mg Tablet 0.5 MG PO Q6H PRN PRN For Anxiety Prescribed by: ANNA ALCARAZ, DO Miscellaneous Medications Lidocaine Cream (Lidocaine Cream) 5 Gm Cream..g. 1 APPLIC TOPICAL (Reported) Additional med instructions Please take Protonix twice daily. Continue all your other home medications Avoid using NSAIDs like aleve or ibuprofen. Followup Plan Disposition: home with Discharge Diet: No restrictions Discharge Activity: No restrictions Patient Instructions Please take Protonix twice daily. Continue all your other home medications Avoid using NSAIDs like aleve or ibuprofen. We recommend that you stop using alcohol as it is detrimental to your health. Please follow up with your primary care provider regarding this hospitalization and getting help with your alcohol use. Follow-up Provider: Odette Thomas Follow-up with PCP in: 1 week Time spent 40 minutes Attending Statement The patient was seen and examined together with Dr. Omalley on 06/18/2015 and I agree with the history, exam and plan as outlined in the note above. Violette Omalley DO Jun 18, 2016 17:19 Raymond Bill MD Jun 19, 2016 10:29
== END 2016-06-18 14:19 | disposition home or self-care (01) | DRG 378 ==
LOC: SED 08:46 → EDBD 08:46 → EDSTATUS 09:59 → END 12:09 → UNDOADMOB 12:09 → MPC 12:09 → SED 13:15 → MPC 13:27 → END 06-15 10:00 → UNDOADMOB 06-15 12:46 → INTOOBSV 06-15 12:46 → MPC 06-15 12:46 → OBSVTOIN 06-15 12:46
PROVIDERS: ADMIT Emergency Medicine; ATTEND Family Medicine
PROC: 0DB68ZX Excision of Stomach, Via Natural or Artificial Opening Endoscopic, Diagnostic (ICD-10-PCS; principal; 2016-06-15 09:00)
PROC: 0DBM8ZX Excision of Descending Colon, Via Natural or Artificial Opening Endoscopic, Diagnostic (ICD-10-PCS; 2016-06-16)
PROC: 0DJ08ZZ Inspection of Upper Intestinal Tract, Via Natural or Artificial Opening Endoscopic (ICD-10-PCS; 2016-06-16)
PROC: 0DBN8ZX Excision of Sigmoid Colon, Via Natural or Artificial Opening Endoscopic, Diagnostic (ICD-10-PCS; 2016-06-16 09:00)
DX: K92.2 Gastrointestinal hemorrhage, unspecified (principal); N39.0 Urinary tract infection, site not specified; I85.10 Secondary esophageal varices without bleeding; F41.9 Anxiety disorder, unspecified; Z79.51 Long term (current) use of inhaled steroids; D12.5 Benign neoplasm of sigmoid colon; E03.9 Hypothyroidism, unspecified; G89.29 Other chronic pain; K21.9 Gastro-esophageal reflux disease without esophagitis; Z87.891 Personal history of nicotine dependence; K70.30 Alcoholic cirrhosis of liver without ascites; E87.6 Hypokalemia; R74.0 Nonspecific elevation of levels of transaminase and lactic acid dehydrogenase [LDH]; Z66 Do not resuscitate; I48.0 Paroxysmal atrial fibrillation; F03.90 Unspecified dementia, unspecified severity, without behavioral disturbance, psychotic disturbance, mood disturbance, and anxiety; Z96.641 Presence of right artificial hip joint; K64.8 Other hemorrhoids; E83.51 Hypocalcemia; B96.1 Klebsiella pneumoniae [K. pneumoniae] as the cause of diseases classified elsewhere; D50.0 Iron deficiency anemia secondary to blood loss (chronic)

== ENCOUNTER 2016-10-01 10:23 | Inpatient (IN) | payer MEDICARE, OTHER ==
[~2016-10-01] VITALS: Ht 157.5 cm; Wt 45.2 kg
[~2016-10-01 10:23] MED LIST changes: +CEPH500C PO; -CHOL200047 PO; +CHOL500011 PO; -FOLI1TAB18 PO; -FURO40TA4 PO; +GABA-502 PO; -HYDR-4003 PO; -IBUP-1827 PO; +LIDO5CRE17 TOPICAL; -OMEG1CAP56 PO; -THIA100T64 PO
--- NOTE | 2016-10-01 10:32 | ED.REPORT ---
HPI-General Illness Date of Service Oct 01, 2016 ED Provider: Dawood Barajas MD This is a 71 year old female with a history of hypothyroidism, sleep apnea, sepsis secondary to UTI, liver cirrhosis, mild dementia, and anxiety presenting to the emergency department via EMS due to generalized weakness that began one week ago. called EMS and reported weakness and inability to ambulate for the past week with associated confusion. Patient was found in bed in feces and urine by EMS. In the ED, patient states she has been eating and drinking normally, last PO today morning. However, she states that she has been unable to walk due to weakness. She denies fever, chills, back pain, chest pain, or dysuria at this time. Nursing Notes Stated Complaint: GENERALIZED WEAKNESS Nursing Notes Reviewed: Yes ([facility] Second[facility] not reconciled) Allergies: Coded Allergies: No Known Allergies (Verified , 06/14/16) Scheduled Cholecalciferol (Vitamin D3) (Vitamin D3) 5,000 Unit Tablet 5,000 UNIT PO DAILY Levothyroxine (Levothyroxine) 137 Mcg Tablet 137 MCG PO DAILY Multivitamin (Multi Vitamin Daily) 1 Each Tablet 1 EACH PO DAILY Scheduled PRN Albuterol Sulfate (Ventolin HFA Inhaler) 200 Puff/18 Gm Inhaler 2 PUFF INHALATION Q4H PRN PRN For Shortness of Breath General Time Seen by MD: 10:29 Chief Complaint Weakness Hx Obtained From: Patient, EMS Arrived By: Ambulance Sudden in Onset?: Yes Onset Occurred: 1 week ago Symptom Duration: Since onset Pertinent Negative: Pt denies other symptoms Recent Healthcare: No recent doctor visit, No recent hospitalization Similar Sx Previous: No Past Medical History Past Medical History Notes: Patient does not know her medications. PCP: Dr. Sol Last Admit 06/2016 for GI Bleed (EGD & Colonoscopy) Past Medical History 1. History of childhood asthma, which is quite stable. 2. Chart review reveals a diagnosis of paroxysmal atrial fibrillation. 3. Hypothyroidism. 4. Sleep apnea, untreated. 5. Central retinal vein occlusion. 6. Cataract on the left. 7. History of sepsis secondary to UTI with a prolonged hospitalization in June 2013 and ho Klebsiella UTI 06/2016 8. Chronic hip pain 9. Liver cirrhosis 10. Mild dementia 11. Anxiety Reports: GERD Past Surgical History Surgical History 1. Sinus surgery. 2. YRN, BSO. 3. Colon resection for diverticulitis. 4. Radha fundoplication. 5. Endoscopy + colonoscopy (06/2016) 6. Sinus nasoplasty Reports: Hip replacement Family History noncontributory Smoking History Former Smoker Social History History of EtOH abuse Drug Use: Denies drug use Other Social History: Good social support, , Local resident Ambulatory Status Wheelchair Review of Systems Full Review of Systems Constitutional: Reports: Malaise, Weakness - generalized, Denies: Chills, Fever Respiratory: Denies: Non-productive cough, Shortness of breath GI: Denies: Abdominal pain, Nausea, Vomiting Musculoskeletal: Denies: Back pain Neurologic: Reports: Weakness Complete sys rev & neg: except as marked. Physical Exam Vital Signs Vital Signs Date Time Temp Pulse Resp B/P Pulse Ox O2 Delivery O2 Flow Rate FiO2 10/01/16 12:05 89 17 112/77 98 Room Air 10/01/16 10:34 36.9 119 17 116/66 98 Room Air -- Initial VS: Reviewed, Unavailable (none on chart) Head / Eyes: Atraumatic, Normocephalic, PERRL Neck: Supple, Non-tender, Full range of motion Respiratory: Breath sounds normal, Clear to auscultation, No respiratory distress Cardiovascular: Regular rate & rhythm, Heart sounds normal, Intact distal pulses Abdomen / GI: Soft, Non-tender, No guarding, No rebound, No distention Extremities: Vascular intact Skin: Warm, Dry, No cyanosis Psychiatric: Mood/affect normal General/Constitutional: Awake, Alert Frail, appears clinically dehydrated, cachectic. Smells of urine and feces. ENT: Airway patent Dry mucous membranes, chapped lips. Neurologic: Speech NL Provides history but seems unconcerned that she has been unable to ambulate. No focal findings but is globally weak, she is unable to lift either leg off of gurney. Interpretation & Diagnostics Lab Results Interpretation Result Diagram: 10/01/16 1040 10/01/16 1040 Test 10/01/16 10:40 10/01/16 11:00 10/01/16 11:30 White Blood Count 13.4th/mm3 (3.8-10.1) Red Blood Count 4.37mil/mm3 (3.90-5.20) Hemoglobin 12.5g/dL (12.0-15.6) Hematocrit 38.6% (35.0-46.0) Mean Corpuscular Volume 88.3fL (81-100) Mean Corpuscular Hemoglobin 28.6pg (27.0-35.0) Mean Corpuscular Hemoglobin Concent 32.4% (32.0-37.0) Red Cell Distribution Width 17.1% (12.3-15.4) Platelet Count 526bil/L (150-400) Neutrophils (%) (Auto) 83.7% (40-74) Lymphocytes (%) (Auto) 9.3% (14-46) Monocytes (%) (Auto) 5.7% (4-12) Eosinophils (%) (Auto) 0.1% (0-5) Basophils (%) (Auto) 0.3% (0-3) Sodium Level 130mEq/L (134-144) Potassium Level 3.4mEq/L (3.5-5.2) Chloride Level 90mEq/L (97-108) Carbon Dioxide Level 19mmol/L (18-29) Blood Urea Nitrogen 7mg/dL (8-27) Creatinine 0.46mg/dL (0.57-1.00) Estimat Glomerular Filtration Rate 192mL/min (>59) Glucose Level 123mg/dL (60-99) Lactic Acid Level 1.9mmol/L (0.4-2.0) Calcium Level 8.7mg/dL (8.5-10.1) Total Bilirubin 0.9mg/dL (0.0-1.2) Aspartate Amino Transf (AST/SGOT) 25U/L (0-50) Alanine Aminotransferase (ALT/SGPT) 14U/L (0-32) Alkaline Phosphatase 80U/L (25-165) Total Creatine Kinase 24U/L (21-215) Troponin T 0.010ug/L (0.0-0.011) Total Protein 7.5g/dL (6.4-8.4) Albumin 2.5g/dL (3.4-5.0) Hold Purple Top Tube Received (Received) Prothrombin Time 13.1sec (8.1-12.5) Prothromb Time International Ratio 1.22ratio Hold Blue Top Tube Received (Received) Thyroid Stimulating Hormone (TSH) 9.990uIU/mL (0.450-4.500) Free Thyroxine 1.04ng/dL (0.82-1.77) Hold Red Top Tube Received (Received) Hold [place] Top Tube Received (Received) Hold [place] Top Tube Received (Received) Alcohols < 10mg/dL (0-10) Urine Color Yellow (YELLOW) Urine Appearance Slightly cloudy Urine pH 6.5 (5.0-8.0) Urine Specific [place] 1.010 (1.003-1.035) Urine Protein Tracemg/dL (NEG,TRACE) Urine Glucose (UA) Negativemg/dL (NEGATIVE) Urine Ketones 40mg/dL (NEGATIVE) Urine Occult Blood Moderate (NEGATIVE) Urine Nitrite Positive (NEGATIVE) Urine Bilirubin Negative (NEGATIVE) Urine Urobilinogen Normalmg/dL (NORMAL) Urine Leukocyte Esterase Large (NEGATIVE) Urine RBC 0-2/hpf (0-2) Urine WBC 11-50/hpf (0-5) Urine Epithelial Cells Occasional/hpf (NONE-MOD) Urine Crystals None seen (NONE SEEN) Urine Bacteria Many/hpf (NONE-FEW) Urine Hyaline Casts None/lpf (NONE) Urine Granular Casts None seen (NONE SEEN) Urine Waxy Casts None seen (NONE SEEN) Urine Red Blood Cell Casts None seen (NONE SEEN) Urine White Blood Cell Casts None seen (NONE SEEN) Urine Mucus None seen (None Seen) Urine Trichomonas None seen (NONE SEEN) Urine Yeast None (NONE SEEN) Urinalysis Comment None Urine Culture Reflexed Indicated Lab Results Interpretation: CBC positive leukocytosis next and CMP normal UA positive ECG Interpretation ECG Interpretation: NSR at a rate of 89 RBBB No interval change when compared to prior on 05/2016 Time: 10:59 Interpreted by: ED physician X-Ray Chest Interpretation Chest Xray Interpretation: IMPRESSION: No acute cardiopulmonary disease process. Dictated by: Ava Rodriguez MD, PhD on 10/01/2016 at 10:58 Approved by: Ava Rodriguez MD, PhD on 10/01/2016 at 10:59 CT Head Interpretation IMPRESSION: 1. No acute intracranial hemorrhage. 2. Extensive chronic small vessel ischemic changes and parenchymal volume loss. Dictated by: Nolan Walker M.D. on 10/01/2016 at 11:39 Approved by: Noaln Walker M.D. on 10/01/2016 at 11:40 Re-Eval/Medical Decision Med Decision/Clinical Course This is a 71-year-old female brought by EMS indicates he cannot care for her, she become nonambulatory, increasingly weak. Apparently she was found in a urine and feces. The about possible UTI she has had problems with before. Patient is confused, but not needs times. She is a prior history of alcohol also and known cirrhosis-but no known current history of drinking that I been able to identify. She is not clinically intoxicated or in withdrawal. A workup was pursued if she is cleaning up by the nurses, she does have markers of a UTI on evaluation as well as a leukocytosis. But no other major location was identified. She is profoundly generally weak and unable to stand, she cannot lift either leg up, and severely deconditioned. She does appear dehydrated. She received IV fluids, ceftriaxone, and is being admitted for continued management. Source of Hx: Old records, EMS Consultation : Referral / Consult Name: Xu Anguiano Consulted With: Hospitalist Call Returned at: 12:55 Garbage Man: Accepts admit Counseled Regarding: Diagnosis, Lab results, Need for follow-up, Need for admission Discharge & Departure Primary Impression: UTI (urinary tract infection) Urinary tract infection type: site unspecified Hematuria presence: without hematuria Qualified Code: N39.0 - Urinary tract infection, site not specified Additional Impression: Generalized weakness Disposition: ADMITTED TO HOSPITAL Discharge Condition All VS Reviewed: Yes Condition: Stable Referrals: NOPCP (PCP) Chalino Attestation Portions of this note were transcribed by Key Cedillo. I, Dr. Barajas personally performed the history, physical exam and medical decision-making; I reviewed and confirmed the accuracy of the information in the transcribed note. Signed by Chalino Matthews, 10/01/2016 at 18:00. Dawood Barajas MD Oct 01, 2016 10:31 KEY CEDILLO Oct 01, 2016 10:41
[2016-10-01 10:34] VITALS: BP 116/66; PULSE 119; RESP 17; O2SAT 98
[2016-10-01] MEDS ORDERED: 0.9% Sodium Chloride 1,000 ML IV ONE (10:40)
[2016-10-01 10:55] LABS: BASOPHILS % (AUTO) 0.3 % (0-3); EOSINOPHILS % (AUTO) 0.1 % (0-5); MONOCYTES % (AUTO) 5.7 % (4-12); Mean Corpuscular Hemoglobin 28.6 pg (27.0-35.0); Mean Corpuscular Volume 88.3 fL (81-100); NEUTROPHILS % (AUTO) 83.7 % (40-74); Platelet Count 526 bil/L (150-400)
--- NOTE | 2016-10-01 11:00 | DRSVH ---
PROCEDURE: X-RAY CHEST ONE VIEW, PORTABLE ([id number]) INDICATIONS: Weakness, ?sepsis TECHNIQUE: One view of the chest was acquired. COMPARISON: [facility], CR, XR CHEST 1VW (PORTABLE), 06/14/2016, 9:25. FINDINGS: Surgical changes and devices: None. Lungs and pleura: No pleural effusions or pneumothorax. Lungs are clear. Mediastinum: Mediastinal contours appear normal. Heart size is normal. Bones and chest wall: No suspicious bony lesions. Overlying soft tissues appear unremarkable. IMPRESSION: No acute cardiopulmonary disease process. Dictated by: Ava Rodriguez MD, PhD on 10/01/2016 at 10:58 Approved by: Ava Rodriguez MD, PhD on 10/01/2016 at 10:59
[2016-10-01 11:35] LABS: TROPONIN T 0.01 ug/L (0.0-0.011)
[2016-10-01 12:05] VITALS: BP 112/77; PULSE 89; RESP 17; O2SAT 98
[2016-10-01 12:14] LABS: INR 1.22 ratio
[2016-10-01 12:23] LABS: APPEARANCE,URINE SLIGHTLY CLOUDY (CLEAR,HAZY); COLOR,URINE YELLOW (YELLOW); OCCULT BLOOD,URINE MODERATE (NEGATIVE); PH,URINE 6.5 (5.0-8.0); UROBILINOGEN,URINE NORMAL (NORMAL)
[2016-10-01] MEDS ORDERED: cefTRIAXone Inj 2,000 MG in Dextrose 5% Minibag Plus 50 ML IV ONE (12:30)
--- NOTE | 2016-10-01 12:42 | DRSVH ---
PROCEDURE: CT BRAIN WITHOUT CONTRAST ([id number]) INDICATIONS: ho confusion TECHNIQUE: Noncontrast 4.5 mm thick angled axial sections acquired from the foramen magnum to the vertex, with c oronal reformats. COMPARISON: [facility], CT, CT BRAIN WO CON, 02/11/2016, 14:51. FINDINGS: Image quality: Diagnostic of motion artifact on this exam is present near the base of the skull. Brain: There is no acute intra-axial or extra-axial hemorrhage. No extra-axial fluid collection is i dentified. There is no midline shift or mass effect. The orbits are grossly unremarkable. No large areas of diffusely decreased attenuation are evident within the brain to suggest diffuse cer ebral edema. Large confluent areas of low-attenuation are present within the deep white matter of th e supratentorial brain. The ventricles and cortical sulci are mildly prominent. Bones: Calvarium and visualized facial bones are grossly intact. The imaged paranasal sinuses and m astoid air cells are clear. IMPRESSION: 1. No acute intracranial hemorrhage. 2. Extensive chronic small vessel ischemic changes and parenchymal volume loss. Dictated by: Nolan Walker M.D. on 10/01/2016 at 11:39 Approved by: Nolan Walker M.D. on 10/01/2016 at 11:40
[2016-10-01] MEDS ORDERED: Polyethylene Glycol (PEG) 17 Gm Powder PO PRN (12:55)
[2016-10-01] MEDS ORDERED: Alum-Mag Hydrox-Simeth 30 mL Suspension PO PRN (12:55)
--- NOTE | 2016-10-01 13:06 | PCM.HPMED ---
Subjective Date of Service Oct 01, 2016 Primary Provider: Admitting Physician: Primary Care Physician: Other,Physician Attending Physician: Admit Status: From the Emergency Department Chief Complaint: Progressive weakness. History of Present Illness: Patient is a 71-year-old female past medical history significant for hypothyroidism, mild dementia, last hospitalized a few months prior with UTI, who currently lives at home with , brought in to the ER due to concern for progressive weakness over the past months which is worse and more acutely in the past weeks to days. He notes some more gradual decline in function since her hip fracture approximately year and a half ago, no notes at times it seems she was getting back to old self regarding ambulation and physical strength. More recently however her function is began to decline more abruptly. Last time she left hospital around May she was strong enough to ambulate under her own strength get around house attending to most of her ADLs, over the past few months however she has become more weak, hip pain especially has limited her ambulation, and for nearly the past month she has been almost able to get out of bed. notes he has had to change her in bed viral in her back and forth, and is attending to almost all of her needs at this time. She finally became weak to the point she was unable to almost assist him enrolling care for her which finally prompted her presentation to emergency department for further evaluation. Denies any recent history of fever or chills. He does note her appetite appears to have diminished quite significantly, and this has been a more chronic problem for at least the past few months. She will take just a few bites of food and then become full. Denies any complaints of chest pain or shortness of breath. He is aware of some skin breakdown on hips which has been causing her pain, which seems to have developed over last couple weeks due to prolonged time in bed. Doing her best roller dpog-ab-ywve repositioned but he is also himself and has difficulty doing so. Especially as her weakness has become more progressive and she is less able to assist. Review of Systems: 10 point review of systems was conducted and entirely negative excepting pertinent positives and negatives included in above history of present illness Allergies Coded Allergies: No Known Allergies (Verified , 06/14/16) Home Medications Cholecalciferol (Vitamin D3) (Vitamin D3) 5,000 Unit Tablet 5,000 UNIT PO DAILY Levothyroxine (Levothyroxine) 137 Mcg Tablet 137 MCG PO DAILY Multivitamin (Multi Vitamin Daily) 1 Each Tablet 1 EACH PO DAILY Scheduled PRN Albuterol Sulfate (Ventolin HFA Inhaler) 200 Puff/18 Gm Inhaler 2 PUFF INHALATION Q4H PRN PRN For Shortness of Breath Lorazepam (Lorazepam) 0.5 Mg Tablet 0.5 MG PO Q6H PRN PRN For Anxiety Miscellaneous Medications Lidocaine Cream (Lidocaine Cream) 5 Gm Cream..g. 1 APPLIC TOPICAL PMH 1. History of childhood asthma, which is quite stable. 2. Chart review reveals a diagnosis of paroxysmal atrial fibrillation. 3. Hypothyroidism. 4. Sleep apnea, untreated. 5. Central retinal vein occlusion. 6. Cataract on the left. 7. History of sepsis secondary to UTI with a prolonged hospitalization in June 2013 and ho Klebsiella UTI 06/2016 8. Chronic hip pain 9. Liver cirrhosis 10. Mild dementia 11. Anxiety 12. GERD Surgical History Surgical History 1. Sinus surgery. 2. YRN, BSO. 3. Colon resection for diverticulitis. 4. Radha fundoplication. 5. Endoscopy + colonoscopy (06/2016) 6. Sinus nasoplasty Reports: Hip replacement Family History Noncontributory Social History Hx Alcohol Use: Yes (per drinks 3-4 drinks of vodka daily, and wine daily, per pt not mu) Hx Substance Use: No Hx Tobacco Use: No Smoking Status: Former Smoker Living Arrangement: with Family Exam Vital Signs Vital Sign - Last Date Time Temp Pulse Resp B/P Pulse Ox O2 Delivery O2 Flow Rate FiO2 10/01/16 12:05 89 17 112/77 98 Room Air 10/01/16 10:34 36.9 General: Alert, Cooperative, Mild Distress, Other (patient appears demented, intermittently making grossly inappropriate statements, though she still is oriented to person place and situation.) Mouth: Mucous Membranes Dry Neck: Supple Chest & Lungs: Clear to auscultation & percussion Cardiovascular: Regular Rate/Rhythm Abdomen: Non-tender, Non-distended, Normoactive bowel tones Extremities: No cyanosis/clubbing/edma bilat Neurological: Grossly Neurologically Intact Lab and Diagnostics Result Diagram: 10/01/16 1040 10/01/16 1040 Assessment & Plan 71-year-old female with progressive weakness worsening most acutely over the past week or so, admitted now for further evaluation possible urinary tract infection which may be contributing to patient's declined function. 1. Generalized weakness - We will consult physical therapy to evaluate and treat - Additionally will consult nutrition to review patient's diet and caloric intake. - Urinalysis did suggest possible UTI infection, especially in more acute decline in functioning as could likely be a concerning factor. Cultures currently pending we will continue Rocephin at this time - Thyroid studies and be rechecked, to ensure patient is currently a therapeutic dose 2. Dementia with possible overlying encephalopathy - Baseline is difficult to assess given patient's acute decline in function, and possible contributing infection - We will continue to reorient patient as appropriate with anyone in hospital setting, and assess baseline cognition with treatment of possible infection and other medical conditions. 3. Hypothyroidism - As noted above, iron studies are pending - We will continue home Levothyroxine 4. Decubitus ulcer - It appears at least at this juncture is unable to care for life adequately at home in spite of his best efforts. I certainly do not suspect any possible early abuse but I feel is ill equipped to rotate and a attend to all of her needs given his own age and limited functionality - Wound care will be consulted for further evaluation - Again attritional consult is ordered and pending for possible contribution of malnutrition to skin breakdown. Disposition: Given decompensated status and likely overlying infection I believe patient will require more than 2 midnights for medical stabilization and discharge from inpatient hospital setting. Pain Evaluation: Adequate Pain Control GI Prophylaxis: Not indicated VTE Mechanical Devices: Intermittant Pneumatic CD Resuscitation Status: CPR: Attempt Resuscitation Time spent 55 minutes Xu Anguiano DO Oct 01, 2016 13:06
[2016-10-01 13:25] VITALS: BP 102/61; PULSE 100; RESP 18; O2SAT 97
[2016-10-01 13:50] VITALS: BP 101/64; PULSE 94; RESP 16; O2SAT 97
--- NOTE | 2016-10-01 15:38 | NUR ---
Admit note- Received patient from Emergency dept. accompanied by . Denies complaints other than "being cold" and "hungry". Incontinent of urine. Fanny area and coccyx are reddened. Wound care consult ordered. Oriented to room, call light, etc.
[2016-10-01] MEDS ORDERED: Albuterol 2.5 mg/3 mL Inhalation Solution NEB PRN (16:00)
[2016-10-01] MEDS: cefTRIAXone Inj 1,000 MG in Dextrose 5% Minibag Plus 50 ML IV SCH (17:08)
[2016-10-01] MEDS: 0.9% Sodium Chloride 1,000 ML IV SCH (17:08)
--- NOTE | 2016-10-01 17:48 | NUR ---
Wound Care 71 yo demented female admitted to [facility] for increased weakness and failure to thrive. Order received for wound evaluation. Patient seen at bedside, pt presents with extension contractures at her ankles bilaterally suggesting she has been bedridden for some time now. Skin assessment reveals some bruising at her left hip that appear like they were from wrinkles, she has 2 small stage 1 PU's at her coccyx and sacrum that are POA and less than 1 cm in diameter each and a small skin tear at her right buttock 1 cm in diameter. Patients skin is generally in good shape and patient was placed on a low air loss bed, recommend frequent repositioning as pt is not capable of bed mobility independently, no dressings are recommended at this time.
[2016-10-01 18:03] VITALS: BP 109/72; PULSE 102; RESP 16; O2SAT 94
[2016-10-01 23:57] VITALS: BP 101/65; PULSE 97; RESP 16; O2SAT 97
--- NOTE | 2016-10-02 01:37 | NUR ---
MOBILITY Pt unable to turn self in bed. Per Krzysztof with score of 10, pt on Pressure Ulcer Protocol. Nursing turning pt q2hrs. Pt has pain when moving, states "It goes up my legs into my hips" but pain relieves when not moving. Pillows placed to lift heels. Checking frequently for incontinence. Hourly rounding.
[2016-10-02 05:15] VITALS: BP 100/61; PULSE 83; RESP 18; O2SAT 96
[2016-10-02] MEDS: 0.9% Sodium Chloride 1,000 ML IV SCH (06:00)
[2016-10-02 07:05] LABS: BASOPHILS % (AUTO) 0.6 % (0-3); EOSINOPHILS % (AUTO) 0.4 % (0-5); MONOCYTES % (AUTO) 8.6 % (4-12); Mean Corpuscular Hemoglobin 28.6 pg (27.0-35.0); Mean Corpuscular Volume 90.4 fL (81-100); NEUTROPHILS % (AUTO) 80.8 % (40-74); Platelet Count 378 bil/L (150-400)
--- NOTE | 2016-10-02 10:30 | NUR ---
Potassium Hospitalist notified of potassium level of 3.2. Awaiting orders.
--- NOTE | 2016-10-02 10:55 | NUR ---
Evaluation completed. Please go to "Notes" then click on "Assessments and Notes" (bottom left corner of screen). Then select appropriate discipline tab on top of screen.
[2016-10-02 13:29] VITALS: BP 90/60; PULSE 86; O2SAT 97
--- NOTE | 2016-10-02 14:14 | PCM.PNMED ---
Subjective Date of Service Oct 02, 2016 Subjective Patient is pleasant this morning appears somewhat confused at times. He inquires about her , states she would like to be out of bed and "working: " By the time he arrives. However she also declines assistance transfer to chair stating it would be to0 painful. She has no other acute complaints at this time however, excepting urinary incontinence. Denies any shortness of breath or chest pains. Exam Vital Signs Vital Sign - Last Date Time Temp Pulse Resp B/P Pulse Ox O2 Delivery O2 Flow Rate FiO2 10/02/16 13:29 36.8 86 90/60 97 Room Air 10/02/16 05:15 18 Intake and Output 10/01/16 10/01/16 10/02/16 Cumulative From/Thru 15:00 23:00 07:00 10/01/16 10:34 - 10/02/16 06:03 Intake Total 1000 ml 240 ml 1217 ml 2457 ml Balance 1000 ml 240 ml 1217 ml 2457 ml Intake Oral 240 ml 240 ml 480 ml IV Total 1000 ml 977 ml 1977 ml # Voids 3 2 5 # Bowel Movements 0 0 Exam General: Alert, Cooperative, in no apparent distress . patient remains mildly demented, i Mouth: Mucous Membranes moist Neck: Supple Chest & Lungs: Clear to auscultation & percussion Cardiovascular: Regular Rate/Rhythm Abdomen: Non-tender, Non-distended, Normoactive bowel tones Extremities: No cyanosis/clubbing/edma bilat Neurological: Grossly Neurologically Intact IVs and Medications Medications Reviewed: Medications were reviewed in detail Lab and Diagnostics Result Diagram: 10/02/16 0650 10/02/16 0650 Assessment & Plan 71-year-old female with progressive weakness worsening most acutely over the past week or so, admitted now for further evaluation possible urinary tract infection which may be contributing to patient's declined function. 1. Generalized weakness/ Functional paralysis: - We will consult physical therapy to evaluate and treat - Additionally will consult nutrition to review patient's diet and caloric intake. - Urinalysis does support UTI infection, especially given more acute decline in functioning as could likely be a concerning factor. Cultures currently pending we will continue Rocephin at this time - Thyroid studies also demonstrate hypothyroidism, which may be a contributing factor. 2. Dementia with possible overlying encephalopathy - Baseline is difficult to assess given patient's acute decline in function, and possible contributing infection - We will continue to reorient patient as appropriate with anyone in hospital setting, and assess baseline cognition with treatment of possible infection and other medical conditions. 3. Hypothyroidism - TSH checked and noted to be elevated, to nearly 10. In addition T4 was noted to be low. - As such I have titrated up patient's levothyroxine to 150 g daily. - Plan to recheck in approximately 3-4 weeks to assess effect, he weakness remains significantly debilitating may consider checking T3T4 sooner. 4. Decubitus ulcer - It appears at least at this juncture is unable to care for life adequately at home in spite of his best efforts. I certainly do not suspect any possible early abuse but I feel is ill equipped to rotate and a attend to all of her needs given his own age and limited functionality - Wound care consulted for further evaluation and treatment - Nutritional consult is ordered and pending for possible contribution of malnutrition to skin breakdown. Disposition: Given decompensated status and likely overlying infection I believe patient will require more than 2 midnights for medical stabilization and discharge from inpatient hospital setting. Pain Evaluation: Adequate Pain Control GI Prophylaxis: Not indicated VTE Mechanical Devices: Intermittant Pneumatic CD Resuscitation Status: CPR: Attempt Resuscitation Time spent 30 minutes Xu Anguiano DO Oct 02, 2016 14:14
--- NOTE | 2016-10-02 14:27 | NUR ---
Activity Pt has been on bedrest with Q2 turns. Incontinent of bladder. Pt has denied pain throughout the shift but has had some anxiety when left alone. Needs frequent reassurance. Bed locked in low position and call light within reach. [place] alarm on. Will continue to monitor.
[2016-10-02] MEDS: cefTRIAXone Inj 1,000 MG in Dextrose 5% Minibag Plus 50 ML IV SCH (15:49)
--- NOTE | 2016-10-02 16:25 | NUR ---
NUTRITION ASSESSMENT: ASSESS: 71 YO female admitted for UTI, generalized weakness and failure to thrive. Per EMR review, pt with 19.7% wt loss since Jun 2015. PO intake of 25% x 1 meal reported at this time. PMHx: Childhood asthma, a-fib, hypothyroidism, sleep apnea, chronic hip pain, liver cirrhosis, mild dementia, anxiety, GERD. LABS: Reviewed. K+ 3.2, Glu 116, Ca 7.7, Alb 2.5. MEDS: Reviewed. GI: No BM reported at this time. SKIN: small stage 1 PU on coccyx and small stage 1 PU on sacrum, skin tear on R buttock. CURRENT WT: 45.2 kg. Wt Jun 2014: 56.8 kg. Wt loss of 19.7% in approx 16 months. DIET: Heart Healthy, Diabetic. PO intake 25% x 1 meal. EST. NEEDS (WOUNDS/WT GAIN): 7948-4518 kcals (30-40 kcals/kg BW), 55-70 g protein (1.2-1.5 g/kg BW) NUTRITION DIAGNOSIS: 1.) Inadequate oral intake related to decreased po intake as evidenced by po intake of 25% x 1 meal and significant wt loss of 19.7% x approx. 16 months. NUTRITION INTERVENTION: 1.) Will add Glucerna to all trays. MONITOR / EVAL: PO intake, labs, wounds, weights, nutritional status. Follow per high nutritional risk.
[2016-10-02 18:18] VITALS: BP 95/62; PULSE 97; O2SAT 95
[2016-10-02 21:31] VITALS: BP 101/62; PULSE 90; RESP 18; O2SAT 97
[2016-10-03] MEDS: 0.9% Sodium Chloride 1,000 ML IV SCH ×3 (00:28→13:48)
[2016-10-03 03:00] VITALS: BP 110/66; PULSE 82; RESP 16; O2SAT 95
--- NOTE | 2016-10-03 03:31 | NUR ---
Anxiety Pt has been calm during shift, some anxiety when she awoke and realized her had headed home. "he should wake me up before he leaves". She insisted on calling him at home at 2300, and showed less anxiety after that. Addendum: 10/03/16 at 0634 by SALVATORE LUGO RN Anxiety & confusion increased in the education analyst, with repeated calling out and wanting to know where her was and when he would be coming.
[2016-10-03 07:15] LABS: BASOPHILS % (AUTO) 0.3 % (0-3); EOSINOPHILS % (AUTO) 0.9 % (0-5); MONOCYTES % (AUTO) 10.7 % (4-12); Mean Corpuscular Hemoglobin 28.2 pg (27.0-35.0); Mean Corpuscular Volume 89.9 fL (81-100); NEUTROPHILS % (AUTO) 74.9 % (40-74); Platelet Count 351 bil/L (150-400)
[2016-10-03 09:30] VITALS: BP 112/62; PULSE 84; RESP 16; O2SAT 98
[2016-10-03] MEDS: LORazepam 1 mg Tablet PO PRN ×2 (09:38→16:05)
--- NOTE | 2016-10-03 11:43 | PCM.PNMED ---
Subjective Date of Service Oct 03, 2016 Subjective pt seems more alert and oriented, know her name and place, not year. Patient was very anxious, wanting to call her denied suprapubic pain, SOB, back pain, no fever, chills at night Exam Vital Signs Vital Sign - Last Date Time Temp Pulse Resp B/P Pulse Ox O2 Delivery O2 Flow Rate FiO2 10/03/16 03:00 37.1 82 16 110/66 95 Room Air Intake and Output 10/02/16 10/02/16 10/03/16 Cumulative From/Thru 15:00 23:00 07:00 10/01/16 10:34 - 10/02/16 18:18 Intake Total 1110 ml 3567 ml Balance 1110 ml 3567 ml Intake Oral 360 ml 840 ml IV Total 750 ml 2727 ml # Voids 5 10 # Bowel Movements 0 Exam Elderly lady laying down comfortably on the bed NAD, no JVD, MMM RRR, nl s1 s2 no mrg CTAB no W,C S,ND,NT,BS+ warm, no edema IVs and Medications Medications Reviewed: Medications were reviewed in detail Lab and Diagnostics Result Diagram: 10/03/1640 10/03/16 0640 Assessment & Plan 71-year-old female with progressive weakness worsening most acutely over the past week or so, admitted now for further evaluation possible urinary tract infection which may be contributing to patient's declined function. acute, active 1.acute encephalopathy, generalized weakness/ Functional paralysis, POA, likely due to UTI with underlying dementia, -patient is clinically improving with better mentation today, HD stable, afebrile -will verify baseline MS with family -daily PT to increase morbility -abx as below -high risks for delirium, try to avoid chemical/physical restraints, 2.UTI, POA, E.Coli+ pansensitive except bactrim -continue Rocephin, likely 7-10days, switch to Cipro upon d/c -trend fever curve, wbc, PCT. chronic, stable 3. Hypothyroidism, TSH close to 10, FT4 WNL - levothyroxine to 150 g daily on admission, from 137ug, check TFT in 8weeks 4. Decubitus ulcer - It appears at least at this juncture is unable to care for life adequately at home in spite of his best efforts. I certainly do not suspect any possible early abuse but I feel is ill equipped to rotate and a attend to all of her needs given his own age and limited functionality - Wound care consulted for further evaluation and treatment - Nutritional consult is ordered and pending for possible contribution of malnutrition to skin breakdown. Disposition: likely stay through the weekends, SNF vs home with HH on Thursday. GI Prophylaxis: Not indicated VTE Mechanical Devices: Intermittant Pneumatic CD Resuscitation Status: CPR: Attempt Resuscitation Time spent 35min Blanca Matthews MD Oct 03, 2016 11:43
--- NOTE | 2016-10-03 13:25 | NUR ---
Social Work note - Initial assessment Dilma Miles is a 71 yr old who was admitted for UTI, generalized weakness. EMR reviewed: Pt has Medicare and Federal [employer] insurance. Her DPOA is her - Paperwork verified in EMR. Readmit score is high - 3. Pt has no LTC insurance or VA benefits. See attached CM initial assessment. WILD OYSTER HARVESTER met with pt - pt has advancing dementia. She is alert to person and place, not time. She states that she lives at home with her . She was brought to ED for weakness, has been bed bound and has pain - was covered in feces and urine because she was not able to get up to the bathroom and was in too much pain to be moved to be cleaned. WILD OYSTER HARVESTER spoke with pt's Chandan who admits that pt is too weak to come home at this time. He would like her to return to home but she would have to be much stronger and able to participate in her care. He states that she has advancing dementia. He is wondering if Pt is hospice appropriate. WILD OYSTER HARVESTER provided education and support - will as MD about a palliative care consult if appropriate. Pt and agree that she will need a SNF for Rehab. PT evaluation complete recommending SNF. Pt has been to [facility] in the past - would like pt to return there. WILD OYSTER HARVESTER asked SERVICE ASSOCIATE to make referral to [facility]. MD identified that Pt has UTI and may require inpt hospitalization through the weekend. WILD OYSTER HARVESTER completed paperwork and PASSR - placed on the chart. WILD OYSTER HARVESTER will continue to follow. Plan: [facility] ([facility]) for PT/rehab. JUSTIN Robertson Addendum: 10/03/16 at 1333 by CLINT IGNACIO Amended: Links added.
--- NOTE | 2016-10-03 14:34 | NUR ---
Anxiety/Mobility Pt very restless this morning, calling out to "Chandan" and repeatedly calling out to find out where her is. Pt appeared very anxious, fidgety in bed. Orders received for Ativan 1mg TID/PRN. Pt has been much better after Ativan. Pt able to nap and is laying in bed, appears more comfortable. Phys Therapy in to work with pt but patient refused to participate. Pt tolerating diet without any c/o nausea. Cont to monitor.
--- NOTE | 2016-10-03 15:20 | NUR ---
Gave access and faxed facesheet to Lovely [email or web address] MSW
[2016-10-03] MEDS: cefTRIAXone Inj 1,000 MG in Dextrose 5% Minibag Plus 50 ML IV SCH (15:53)
[2016-10-03 18:52] VITALS: BP 106/62; PULSE 103; RESP 16; O2SAT 96
[2016-10-03 19:49] VITALS: BP 101/63; PULSE 96; RESP 17; O2SAT 97
[2016-10-04 00:30] VITALS: BP 112/66; PULSE 85; RESP 17; O2SAT 97
[2016-10-04] MEDS: 0.9% Sodium Chloride 1,000 ML IV SCH ×2 (00:41→14:00)
[2016-10-04 04:41] VITALS: BP 116/72; PULSE 77; RESP 17; O2SAT 97
--- NOTE | 2016-10-04 06:00 | NUR ---
Shift Note: Pt. Has been repositioned q2, offered a drinks and accepted, denies pain and has no discomfort voiced, Calling out for Chandan() a few times, easily redirectable, calm and pleasant, slept most of the night, hourly rounds, call light in reach, needs anticipated.
[2016-10-04 07:26] LABS: BASOPHILS % (AUTO) 0.6 % (0-3); EOSINOPHILS % (AUTO) 0.7 % (0-5); MONOCYTES % (AUTO) 9.5 % (4-12); Mean Corpuscular Hemoglobin 28.5 pg (27.0-35.0); Mean Corpuscular Volume 89.6 fL (81-100); NEUTROPHILS % (AUTO) 77.2 % (40-74); Platelet Count 338 bil/L (150-400)
[2016-10-04 08:18] LABS: Magnesium 1.7 mg/dL (1.6-2.6); Phosphorus 2.4 mg/dL (2.5-4.9)
--- NOTE | 2016-10-04 08:30 | NUR ---
calling out for /mary care pt calling out frequently for "Chandan". Called him at 0830, she spoke with him. 12:30 he called and stated he is on his way and will be there in about 1 hour. total mary care provided to pt. Pt very stiff with turning, best if 2 people assist. skin improved since admit.
[2016-10-04 08:41] VITALS: BP 101/66; PULSE 89; RESP 18; O2SAT 96
--- NOTE | 2016-10-04 10:40 | PCM.PNMED ---
Subjective Date of Service Oct 04, 2016 Subjective Patient was less anxious, alert and orientedx2 denied pain, SOB Exam Vital Signs Vital Sign - Last Date Time Temp Pulse Resp B/P Pulse Ox O2 Delivery O2 Flow Rate FiO2 10/04/16 04:41 36.9 77 17 116/72 97 Room Air Intake and Output 10/03/16 10/03/16 10/04/16 Cumulative From/Thru 15:00 23:00 07:00 10/01/16 10:34 - 10/04/16 06:07 Intake Total 508 ml 460 ml 1404 ml 5939 ml Balance 508 ml 460 ml 1404 ml 5939 ml Intake Oral 60 ml 240 ml 1140 ml IV Total 508 ml 400 ml 1164 ml 4799 ml # Voids 2 2 14 # Bowel Movements 0 Exam NAD, comfortably laying down on the bed no JVD, MMM, no LAD RRR, nl s1, s2 no mrg CTAB, no w,c S,ND,NT,normoactive BS+ warm, no edema, pulses 2/2 IVs and Medications Medications Reviewed: Medications were reviewed in detail Lab and Diagnostics Result Diagram: 10/04/1670410/04/16704 Assessment & Plan 71-year-old female with progressive weakness worsening most acutely over the past week or so, admitted now for further evaluation possible urinary tract infection which may be contributing to patient's declined function. acute, active 1.acute encephalopathy, generalized weakness/ Functional paralysis, POA, likely due to UTI with underlying dementia, -patient is clinically improving with better mentation today, HD stable, afebrile -will verify baseline MS with family -daily PT to increase morbility -abx as below -high risks for delirium, try to avoid chemical/physical restraints, 2.UTI, POA, E.Coli+ pansensitive except bactrim -continue Rocephin, likely 7-10days, switch to Cipro upon d/c -trend fever curve, wbc, PCT. chronic, stable 3. Hypothyroidism, TSH close to 10, FT4 WNL - levothyroxine to 150 g daily on admission, from 137ug, check TFT in 8weeks 4. Decubitus ulcer - It appears at least at this juncture is unable to care for life adequately at home in spite of his best efforts. I certainly do not suspect any possible early abuse but I feel is ill equipped to rotate and a attend to all of her needs given his own age and limited functionality - Wound care consulted for further evaluation and treatment - Nutritional consult is ordered and pending for possible contribution of malnutrition to skin breakdown. Disposition: likely stay through the weekends, SNF vs home with HH on Thursday. GI Prophylaxis: Not indicated VTE Mechanical Devices: Intermittant Pneumatic CD Resuscitation Status: CPR: Attempt Resuscitation Time spent 35 minutes Blanca Matthews MD Oct 04, 2016 10:40
--- NOTE | 2016-10-04 14:03 | NUR ---
Yasmine CUBA notified of lexa multani. Addendum: 10/04/16 at 1411 by JESSA HURLEY RN new orders received.
[2016-10-04] MEDS ORDERED: Potassium Chloride 20 mEq SR Tablet PO ONE (14:20)
[2016-10-04] MEDS: cefTRIAXone Inj 1,000 MG in Dextrose 5% Minibag Plus 50 ML IV SCH (15:49)
[2016-10-04 17:40] VITALS: BP_SYST 101; BP_SYST 116; BP_DIAS 66; BP_DIAS 72; PULSE 89; RESP 20; O2SAT 96; O2SAT 98
--- NOTE | 2016-10-04 18:27 | NUR ---
mobility/nutrition Pt 2 person assist with bed mobility as she is stiff and pushes against rail. Total assist with all care. pt able to feed self after everything set up and chopped into small bites. eats 25% or less of each meal. assists with meal when he is present.
[2016-10-04 20:30] VITALS: BP 113/69; PULSE 92; RESP 17; O2SAT 97
[2016-10-05] VITALS (8 sets, daily range): BP systolic 96–123; BP diastolic 62–74; PULSE 76–95; RESP 16–20; O2SAT 95–97
[2016-10-05] MEDS: LORazepam 1 mg Tablet PO PRN ×3 (00:07→19:45)
[2016-10-05] MEDS: 0.9% Sodium Chloride 1,000 ML IV SCH (00:18)
--- NOTE | 2016-10-05 02:40 | NUR ---
Anxiety Pt. kept calling out for Chandan, moving in bed and wanting somebody to stay with her, does not effectively uses call light, Heart rate increased up to 90-100s, Administered prn ativan po, helpful, pt. calmed down, able to rest up and sleep, HR down to mid 70s, turned q2, right buttock wound covered by mepilex, closely monitored, astrid alarm on and bed in lowest position for safety, needs anticipated, hourly rounds.
[2016-10-05 08:31] LABS: Magnesium 1.5 mg/dL (1.6-2.6); Phosphorus 2.3 mg/dL (2.5-4.9)
[2016-10-05 08:32] LABS: BASOPHILS % (AUTO) 0.7 % (0-3); EOSINOPHILS % (AUTO) 1.7 % (0-5); MONOCYTES % (AUTO) 9.4 % (4-12); Mean Corpuscular Hemoglobin 28.4 pg (27.0-35.0); Mean Corpuscular Volume 90.2 fL (81-100); NEUTROPHILS % (AUTO) 70.7 % (40-74); Platelet Count 288 bil/L (150-400)
[2016-10-05] MEDS: Ondansetron 2 mg/mL 2 mL Inj IVPUSH PRN (09:30)
[2016-10-05] MEDS ORDERED: Potassium Chloride 20 mEq/15 mL 15mL Oral Soln PO ONE (10:20)
[2016-10-05] MEDS ORDERED: Magnesium Sulf 2 Gm/50mL Water 2 GM in IV Premix 1 EACH IV ONE (10:20)
--- NOTE | 2016-10-05 10:37 | PCM.PNMED ---
Subjective Date of Service Oct 05, 2016 Subjective Patient denied any complaints Mildly aggressive when asked questions. remained confused, seems this is her baseline has low Mg,K persistently Exam Vital Signs Vital Sign - Last Date Time Temp Pulse Resp B/P Pulse Ox O2 Delivery O2 Flow Rate FiO2 10/05/16 09:09 37.3 90 16 111/71 97 Room Air Intake and Output 10/04/16 10/04/16 10/05/16 Cumulative From/Thru 15:00 23:00 07:00 10/01/16 10:34 - 10/05/16 06:22 Intake Total 1242 ml 1026 ml 8207 ml Balance 1242 ml 1026 ml 8207 ml Intake Oral 240 ml 190 ml 1570 ml IV Total 1002 ml 836 ml 6637 ml # Voids 4 2 20 # Bowel Movements 2 2 Exam NAD, comfortably laying down on the bed no JVD, MMM, no LAD RRR, nl s1, s2 no mrg CTAB, no w,c S,ND,NT,normoactive BS+ warm, no edema, pulses 2/2 neuro: AAOx2 IVs and Medications Medications Reviewed: Medications were reviewed in detail Lab and Diagnostics Result Diagram: 10/05/16 0815 10/05/16 0500 Assessment & Plan 71-year-old female with progressive weakness worsening most acutely over the past week or so, admitted now for further evaluation possible urinary tract infection which may be contributing to patient's declined function. acute, active 1.acute encephalopathy, generalized weakness/ Functional paralysis, POA, likely due to UTI with underlying dementia, -patient is clinically improving with better mentation still remained confused. this seems her baseline, HD stable, afebrile -will verify baseline MS with family -daily PT to increase mobility, recommended SNF -abx as below -high risks for delirium, try to avoid chemical/physical restraints, 2.UTI, POA, E.Coli+ pansensitive except bactrim -continue Rocephin, likely 7-10days course, switch to Cipro upon d/c -trend fever curve, wbc, PCT. #Electrolytes imbalance with metabolic acidosis, ?RTA1 vs UTI associated vs hypothyroidism, although E.Coli unlikely urea splitting organism. no signs of GI fluid loss, initial UA showed PH6.5, oxillj04-77 maintained. -will send urine Na,K,Cl get UAG, get EMMANUEL -appreciate nephrology input, consult placed for Dr.Anan leung, stable 3. Hypothyroidism, TSH close to 10, FT4 WNL - levothyroxine to 150 g daily on admission, from 137ug, check TFT in 8weeks 4. Decubitus ulcer - It appears at least at this juncture is unable to care for life adequately at home in spite of his best efforts. I certainly do not suspect any possible early abuse but I feel is ill equipped to rotate and a attend to all of her needs given his own age and limited functionality - Wound care consulted for further evaluation and treatment - Nutritional consult is ordered and pending for possible contribution of malnutrition to skin breakdown. Disposition: likely 1-2more days, SNF vs home with GI Prophylaxis: Not indicated VTE Mechanical Devices: Intermittant Pneumatic CD Resuscitation Status: CPR: Attempt Resuscitation Time spent 35min Blanca Matthews MD Oct 05, 2016 10:32
[2016-10-05] MEDS ORDERED: Potassium Phos (mMol) Inj 30 MMOL in Dextrose 5% 500 ML IV ONE (14:00)
[2016-10-05] MEDS: cefTRIAXone Inj 1,000 MG in Dextrose 5% Minibag Plus 50 ML IV SCH (15:10)
--- NOTE | 2016-10-05 15:36 | CONS ---
[address] [address] CONSULTATION REPORT PATIENT: NILA PRATT : 1945 MR#: [id number] ADMIT: 10/01/2016 JOB ID: [id number] DATE OF SERVICE: REQUESTING PHYSICIAN: Dr. Matthews. REASON FOR CONSULTATION: Persistent hypokalemia. CHIEF COMPLAINT: Weakness. PRESENT ILLNESS: This is 71-year-old, lady with significant past medical history of failure to thrive, hypothyroid, liver cirrhosis, questionable alcohol abuse, dementia, who presented to the hospital due to weakness. According to the , the patient has had gradually worsened weakness and poor appetite. The patient had lost some strength and weight. She is wheelchair bound. She is unable to walk, unable to get up due to decline in her function. The patient was recently admitted due to UTI. The patient was found to have persistent hypokalemia. She has no history of chronic kidney disease. During this hospitalization her potassium level had ranged between 3.0-3.4. Her BUN was 3, creatinine less than 0.03. Calcium level of 7.7, phosphorus of 2.3 and magnesium of 1.5. The patient currently on IV fluids, normal saline at 75 cc/hour. She has been treated for E. coli UTI. Currently getting IV ceftriaxone 1 g q.24 h. The patient does not use any diuretics. She has no nausea, vomiting, no diarrhea. She does have history of malnourished and poor appetite. PAST MEDICAL HISTORY: 1. Paroxysmal atrial fibrillation. 2. Alcohol abuse. 3. Liver cirrhosis. 4. Hypothyroid. 5. Dementia. 6. History of childhood asthma. 7. Central retinal vein occlusion. 8. Cataract. 9. Recurrent UTI. 10. Chronic hip pain. 11. GERD. PAST SURGICAL HISTORY: 1. Status post YRN and BSO. 2. Colon resection for diverticulitis. 3. Radha fundoplication. 4. Hip replacement. FAMILY HISTORY: No kidney disease in the family. Colon cancer in mother. SOCIAL HISTORY: Patient has history of alcohol abuse. Quit smoking in 1975. REVIEW OF SYSTEMS: A 14-point review of systems was performed. MEDICATIONS: Reviewed. PHYSICAL EXAMINATION: Vitals: Temperature 36.7, pulse 91, respiratory rate 20, blood pressure 107/72. General appearance: Awake, not in acute distress. Comfortably lying down on the bed. Family at the bedside. HEENT: Mild pallor. No jaundice. No JVD. No lymphadenopathy. No thyroid enlargement. Dry mucous membranes. Atraumatic. PERRLA. Heart: Regular rhythm. Normal S1, S2. No murmurs, rubs, or gallops. Lungs: Clear to auscultation bilaterally. Abdomen soft, active bowel sounds. Nontender. Nondistended. No hepatosplenomegaly. Extremities: No edema, cyanosis or clubbing of fingers. LABORATORY: UA: Specific gravity 1.010, pH 6.5, ketone positive, 11-50 WBCs, 0-2, RBC, many bacteria. Culture positive for E. coli with pansensitive except Bactrim. Blood culture: No growth. BMP: Sodium 139, potassium 3.4, chloride 110, bicarb 17, BUN 30, creatinine 0.3, glucose 116. Calcium 7.7, phosphorus 2.3. Magnesium 1.5. WBC 9.2, hemoglobin 10.1, platelets 228. ASSESSMENT: This is a 71-year-old lady with a significant past medical history of alcohol abuse who came in with weakness and found to have Escherichia coli urinary tract infection. She has had persistent hypokalemia. she was also found to have hypocalcemia, hypophosphatemia and hypomagnesemia. The patient has had history of malnutrition and failure to thrive. She came in, positive ketones in the urine. Her initial basic metabolic panel showed high anion gap metabolic acidosis. 1. High anion gap metabolic acidosis. Positive for ketones in the urine. The etiology is likely due to ketoacidosis either from starvation or alcoholic ketoacidosis. 2. Hypokalemia and hypomagnesemia. 3. Hypophosphatemia and hypocalcemia. 4. Alcohol abuse. 5. Dementia. 6. Liver cirrhosis. 7. Escherichia coli urinary tract infection. I do not think that the patient has renal tubular acidosis. She does have history of alcohol abuse and failure to thrive. All of the electrolyte disturbance likely could be explained by poor oral intake and history of alcohol abuse. I would like to start patient on banana bag. Replace calcium, phosphorus, magnesium, and potassium. Will check the vitamin D level to rule out vitamin D deficiency. Will check TTKG to rule out renal potassium loss. Thank you for the consultation. We will monitor along with you. MTDD
[2016-10-05] MEDS: Thiamine Inj 100 MG, Folic Acid Inj 1 MG, Magnesium Sulfate 50% Inj 2 GM, Multivitamins... IV SCH ×5 (15:51)
[2016-10-05 16:49] LABS: APPEARANCE,URINE HAZY (CLEAR,HAZY); COLOR,URINE YELLOW (YELLOW); OCCULT BLOOD,URINE MODERATE (NEGATIVE)
[2016-10-05 16:50] LABS: UROBILINOGEN,URINE NORMAL (NORMAL)
[2016-10-05] MEDS: Sodium-Potassium Phosphorus Packet PO SCH ×2 (18:00→22:00)
--- NOTE | 2016-10-05 18:00 | NUR ---
anxiety, skin, UA, electrolytes, tele Pt. anxious this am; frequently calling out for Chandan; forgetful; repeatedly reassuring pt. that Chandan would be here around lunchtime; cooperative with care, following commands. With at bedside pt. calm, not calling out. Turning pt. q2hr; mepilex to sacrum changed; redness noted and open areas covered. Pt. incontinent of urine; UA received via straight cath and sent to lab. Pt. K+ 3.4, mg 1.5; notified this am; one time dose of potassium chloride 40 meq po given and 2gm mag rider given iv per hospitalist orders. Nephrology consulted on pt.; received orders for iv potassium phos, banana bag, and phos naK powder. Clarified with Dr. Westfall and pharmacist prior to giving medications. Pt. placed on tele; per medical office technician sinus 80's with inverted T wave.
[2016-10-06] VITALS (7 sets, daily range): BP systolic 106–110; BP diastolic 62–69; PULSE 72–99; RESP 16–20; O2SAT 96–98
[2016-10-06] MEDS: LORazepam 1 mg Tablet PO PRN ×2 (00:45→23:16)
[2016-10-06] MEDS: Thiamine Inj 100 MG, Folic Acid Inj 1 MG, Magnesium Sulfate 50% Inj 2 GM, Multivitamins... IV SCH ×5 (02:47)
--- NOTE | 2016-10-06 05:24 | NUR ---
Anxiety Pt has had periods of waking up every 90 seconds to call out for help or miscellaneous things, appearing very anxious. PO prn ativan very effective at giving patient relief and has been able to have longer stretches of sleep. Pt also had moderate bowel movement which appeared to help with comfort and resolved complaints of insomnia earlier in the night.
[2016-10-06 05:32] LABS: Mean Corpuscular Hemoglobin 28.6 pg (27.0-35.0); Mean Corpuscular Volume 90.7 fL (81-100); NEUTROPHILS % (AUTO) 64.7 % (40-74); Platelet Count 249 bil/L (150-400)
[2016-10-06 05:33] LABS: BASOPHILS % (AUTO) 0.6 % (0-3); EOSINOPHILS % (AUTO) 1.9 % (0-5); MONOCYTES % (AUTO) 9.3 % (4-12)
[2016-10-06 06:03] LABS: Magnesium 2.6 mg/dL (1.6-2.6); Phosphorus 3.4 mg/dL (2.5-4.9)
[2016-10-06] MEDS: Sodium-Potassium Phosphorus Packet PO SCH ×4 (08:09→23:16)
--- NOTE | 2016-10-06 11:13 | NUR ---
[facility] called and they are unable accept patient at this time.
--- NOTE | 2016-10-06 12:46 | NUR ---
Wound Care [facility] Patient seen for follow up wound care visit. Skin tear to buttock open and measures 0.8cm L x 1.7cm W x 0.1cm D with 100% pale red tissue at wound bed. Minimal drainage noted. Cleaned with normal saline and covered with Mepilex. Stage I to right sacrum has resolved. Previous stage I to left sacrum/coccyx now open Stage II measuring 0.3cm L x 0.3cm W x <0.1cm D. Wound bed 100% pale red with scant serous drainage noted. Cleaned with normal saline and covered with sacral Mepilex. Patient has been refusing repositioning and experiences significant fear and anxiety during turning in bed for wound care. Reinstructed patient in importance of keeping weight off of pressure ulcer to facilitate healing. Per nursing, patient had just been repositioned semi-rolled toward left upon wound care arrival. Repositioned to same position following treatment. Patient with significant incontinence upon arrival. Cleaned per nursing during wound care visit. Recommend continued dressing changes q48 hours and PRN soiling. Wound care to follow as needed.
--- NOTE | 2016-10-06 14:02 | NUR ---
[facility] signed
--- NOTE | 2016-10-06 14:14 | PCM.PNNEPH ---
Subjective Date of Service Oct 06, 2016 Subjective Per nurse, pt was unable to sleep and appeared anxious. She received PO ativan. Now she is sleeping in bed comfortably. Stable BP. K, Mg, PO4 are now normalized. Exam Vital Signs Vital Sign - Last Date Time Temp Pulse Resp B/P Pulse Ox O2 Delivery O2 Flow Rate FiO2 10/06/16 13:40 36.8 80 18 106/62 97 Room Air Intake and Output 10/05/16 10/05/16 10/06/16 Cumulative From/Thru 15:00 23:00 07:00 10/01/16 10:34 - 10/06/16 06:22 Intake Total 1411 ml 9618 ml Balance 1411 ml 9618 ml Intake Oral 300 ml 1870 ml IV Total 1111 ml 7748 ml # Voids 3 23 # Bowel Movements 3 5 Exam General appearance: Sleeping comfortably on the bed, in nonacute distress. HEENT: Mild pallor. No jaundice. No JVD. No lymphadenopathy. No thyroid enlargement. Dry mucous membranes. Atraumatic. PERRLA. Heart: Regular rhythm. Normal S1, S2. No murmurs, rubs, or gallops. Lungs: Clear to auscultation bilaterally. Abdomen soft, active bowel sounds. No HSM. Extremities: No edema, cyanosis or clubbing of fingers. Lab and Diagnostics Result Diagram: 10/06/1651910/06/16519 Plan Impression 1. High anion gap metabolic acidosis. Positive for ketones in the urine. The etiology is likely due to ketoacidosis either from starvation or alcoholic ketoacidosis. 2. Hypokalemia and hypomagnesemia due to chronic alcohol abuse and malnutrition. 3. Hypophosphatemia and hypocalcemia. VitD level pending. 4. Alcohol abuse. 5. Dementia. 6. Liver cirrhosis. 7. Escherichia coli urinary tract infection. Plan: Monitor K, Mg, PO4,and Ca. Replace accordingly. Add thiamine and folic acid. will sign off, please do not hesitate to call back with any question. Thank you for the consultation. Celine Rome MD Oct 06, 2016 14:14
--- NOTE | 2016-10-06 14:58 | NUR ---
Confusion Pt showed mild confusion this am, was confused where her arms should go in bed. RN told her to just relax them on her stomach, and try and take a nap. Pt agreed to do that, and napped for a few hours. Pt woke up, calling out for Chandan, RN went into room and explained to her he would be here this afternoon. Pt relaxed. Pt was changed with wound care, and has been getting turned Q2. arrived this afternoon, pt was very happy and became very relaxed. assisted w feeding pt. at bedside, pt currently sleeping. Addendum: 10/06/16 at 1602 by JAMES YIN RN Pt c/o nausea, pt first was sat upright, still c/o she felt nauseous. Pt given 4mg Zofran IV push. Will continue to monitor.
[2016-10-06] MEDS: cefTRIAXone Inj 1,000 MG in Dextrose 5% Minibag Plus 50 ML IV SCH (15:41)
--- NOTE | 2016-10-06 15:47 | NUR ---
Social Work: Continued Discharge Planning Data & Assessment: SW met with patient and patient's spouse at bedside to discuss discharge planning. SW notified patient's spouse that they are unable to accept patient at the current time due to the patient not participating in therapy and the patient currently being on Haldol. Patient's spouse requested a hospice information visit and stated that the patient is able to discharge back to home with hospice and the patient's sister is also able to assist in the home about 3-4 days a week. Patient's spouse stated that he is also willing to have to patient come home with [facility] is she is not accepted to hospice. SW notified patient's attending physician. Pharmacy Student called and spoke with Roopa at [facility] to request a Hospice information visit for the patient and Roopa stated that she would call the SW back with the time and day of the Hospice information visit. SW provided Roopa with SW's contact information and contact information for the patient's spouse. SW will continue to follow and assist patient with discharge planning. Plan: Patient is likely to discharge back home with [facility] RN/bath aide or home with Hospice. SW will follow up with [facility] for hospice info. visit. Sw will also continue to follow and assist patient throughout stay. Sammie Rodriguez LMSW, MAGDALENO
[2016-10-06] MEDS: Ondansetron 2 mg/mL 2 mL Inj IVPUSH PRN (15:49)
--- NOTE | 2016-10-06 16:05 | NUR ---
NUTRITION FOLLOW UP/EDUCATION: ASSESS: 71 YO female admitted for UTI, generalized weakness and failure to thrive, nephrology consulted,no tubular necrosis, noted ketoacidosis from starvation vs. ETOH. Per EMR review, pt with 19.7% wt loss since Jun 2015. PMHx: Childhood asthma, a-fib, hypothyroidism, sleep apnea, chronic hip pain, liver cirrhosis, mild dementia, anxiety, GERD. LABS: Reviewed.Alb 2.0, PAB 5 MEDS: Reviewed. Banana bag GI: 3 BM 10/06 SKIN: small stage 1 PU on coccyx initially and now open Stage II; and small stage 1 PU on sacrum--resolved CURRENT WT: 45.2 kg. Wt Jun 2014: 56.8 kg. Wt loss of 19.7% in approx 16 months. DIET: Heart Healthy, Diabetic. PO 25%. RN notes indicate pt needs food chopped into small bites EST. NEEDS (WOUNDS/WT GAIN): 3527-9213 kcals (30-40 kcals/kg BW), 55-70 g protein (1.2-1.5 g/kg BW) NUTRITION DIAGNOSIS: 1.) Inadequate oral intake related to decreased po intake as evidenced by po intake of 25% x 1 meal and significant wt loss of 19.7% x approx. 16 months.---PERSISTS/MILDLY IMPROVED. NUTRITION INTERVENTION: 1.) Continue with Glucerna on all trays--pt. preference. 2.) Discussed nutrition for wound healing with pt . Reviewed high protein foods and ways to increase kcal/protein for weight gain. Encouraged pt to sip on glucerna between meals. 3.) Diet modified to mechanical soft per pt preference, pt may benefit from swallow evaluation by speech therapy. MONITOR / EVAL: PO intake, labs, wounds, weights, nutritional status. Follow per high nutritional risk.
--- NOTE | 2016-10-06 21:45 | PCM.PNMED ---
Subjective Date of Service Oct 06, 2016 Subjective She is pleasantly confused. She has no new complaints. During my exam she only complained of feeling cold when we put the covers off of her. Wounds were examined with wound care team and she did not complain at that time. Exam Vital Signs Vital Sign - Last Date Time Temp Pulse Resp B/P Pulse Ox O2 Delivery O2 Flow Rate FiO2 10/06/16 20:01 36.9 90 20 97 Room Air 10/06/16 13:40 106/62 Intake and Output 10/05/16 10/05/16 10/06/16 Cumulative From/Thru 15:00 23:00 07:00 10/01/16 10:34 - 10/06/16 06:22 Intake Total 1411 ml 9618 ml Balance 1411 ml 9618 ml Intake Oral 300 ml 1870 ml IV Total 1111 ml 7748 ml # Voids 3 23 # Bowel Movements 3 5 Exam General: Patient is in no apparent distress lying supine in bed. HEENT: Head is atraumatic and normocephalic. Eyes: Pupils are equally round and reactive to light and accommodation. Extraocular muscles are intact. Sclera are white, anicteric. Subconjunctival mucosa is pink. Ears and nose are unremarkable. Oropharynx: There are no mucosal lesions, there is no thrush , there is no pharyngitis. Neck: Is supple, there are no nodes, or masses or tenderness. Chest: Is clear to auscultation and percussion. There are no rales, rhonchi, wheezes or rubs. Heart: Rate, rhythm is regular. There is no murmur, rub or gallop. Abdomen: Good bowel sounds are present. Abdomen is soft, nontender, no organomegaly or masses were appreciated. Extremities: Are symmetrical and well perfused. There is no edema, there is no cellulitis, no rash. There is a skin tear on the left posterior thigh which is superficial. There is some sacral decubital breakdown early stage I. Neurologic: There are no focal neurological deficits. Cranial nerves II through XII are intact. There are no sensory or motor deficits. He is pleasantly demented. Psychiatric: Patients mood is calm and shows no sign of agitation. She is pleasantly demented. Genital: Deferred Rectal: Deferred Lab and Diagnostics Result Diagram: 10/06/1651910/06/16519 Microbiology Name: NILA PRATT Age/Sex: 71/F Attend Dr: Xu Anguiano Acct: [id number] Unit: [id number] Status: ADM IN Location: [place] [address]-1 Re10/01/16 Disch: Specimen: [id number] Collected: 10/01/16 Status: COMP Req#: [id number] Received: 10/01/16 Source: URINE CC Sp Desc : ARON Arteaga Dr: Dawood Barajas MD Ordered: URINE CULT Procedure Result Verified Site Microbiology BILL CULT URINE Final 10/03/16-0720 Organism 1 ESCHERICHIA COLI U COLONY COUNT/QUANTITY >100,000 CFU/ml ESCHERICHIA COLI Cefazolin-predicts results for the oral agents, cefaclor,cefdinir, cefpodoximen, cefprozil, cefuroximne axetil, cephalexin and loracarbed when used for therapy of uncomplicated UTI's due to E. coli, K. pneumoniae, and Proteus mirabilis. Cefpodoxime, cefdinir and cefuroxime axetil may be tested individually because some isolates may be susceptible to these agents while testing resistant to cefazolin. (CLSI J395-U45 pg 53) 1. ESCHERICHIA COLI M.I.C Interp --------- ------ * AMOXICILLIN/CLAVULATE 4 S * AMPICILLIN 8 S * CEFAZOLIN (CEPHALOSPORIN) UTI 4 S * CEFEPIME <=1 S * CEFTRIAXONE <=1 S * CEFUROXIME SODIUM 4 S * CIPROFLOXACIN <=0.25 S * ERTAPENEM <=0.5 S * GENTAMICIN 2 S * IMIPENEM <=1 S * LEVOFLOXACIN <=0.12 S * NITROFURANTOIN <=16 S * TETRACYCLINE <=1 S * TOBRAMYCIN 2 S * TRIMETHOPRIM/SULFAMETHOXAZOLE >=320 R X-Rays, CTs and MRIs PROCEDURE: CT BRAIN WITHOUT CONTRAST ([id number]) INDICATIONS: ho confusion TECHNIQUE: Noncontrast 4.5 mm thick angled axial sections acquired from the foramen magnum to the vertex, with coronal reformats. COMPARISON: [facility], CT, CT BRAIN WO CON, 02/11/2016, 14:51. FINDINGS: Image quality: Diagnostic of motion artifact on this exam is present near the base of the skull. Brain: There is no acute intra-axial or extra-axial hemorrhage. No extra-axial fluid collection is identified. There is no midline shift or mass effect. The orbits are grossly unremarkable. No large areas of diffusely decreased attenuation are evident within the brain to suggest diffuse cerebral edema. Large confluent areas of low-attenuation are present within the deep white matter of the supratentorial brain. The ventricles and cortical sulci are mildly prominent. Bones: Calvarium and visualized facial bones are grossly intact. The imaged paranasal sinuses and mastoid air cells are clear. IMPRESSION: 1. No acute intracranial hemorrhage. 2. Extensive chronic small vessel ischemic changes and parenchymal volume loss. Dictated by: Noaln Walker M.D. on 10/01/2016 at 11:39 Approved by: Nolan Walker M.D. on 10/01/2016 at 11:40 PROCEDURE: X-RAY CHEST ONE VIEW, PORTABLE ([id number]) INDICATIONS: Weakness, ?sepsis TECHNIQUE: One view of the chest was acquired. COMPARISON: [facility], CR, XR CHEST 1VW (PORTABLE), 06/14/2016, 9: 25. FINDINGS: Surgical changes and devices: None. Lungs and pleura: No pleural effusions or pneumothorax. Lungs are clear. Mediastinum: Mediastinal contours appear normal. Heart size is normal. Bones and chest wall: No suspicious bony lesions. Overlying soft tissues appear unremarkable. IMPRESSION: No acute cardiopulmonary disease process. Dictated by: Ava Rodriguez MD, PhD on 10/01/2016 at 10:58 Approved by: Ava Rodriguez MD, PhD on 10/01/2016 at 10:59 Assessment & Plan Patient is a 71-year-old female with progressive weakness worsening most acutely over the past week or so, admitted now for further evaluation possible urinary tract infection which may be contributing to patient's declined function. # Acute encephalopathy, generalized weakness/ Functional paralysis, POA, likely due to UTI with underlying dementia, -The patient is clinically improving with better mentation still remained confused. this pierced to be her baseline -We will verify baseline MS with family -Continue daily physical therapy to increase mobility, recommended SNF -Continue antibiotics as below -The patient is at high risks for delirium, try to avoid chemical/physical restraints, #.UTI, present at the time of admission, secondary to E.Coli+ pansensitive except bactrim -We will continue Rocephin, likely 7-10days course, switch to oral therapy upon d/c -Continue to trend fever curve, WBC and pro-calcitonin levels. # Electrolytes imbalance with metabolic acidosis, ?RTA1 vs UTI associated vs hypothyroidism, although E.Coli unlikely urea splitting organism. no signs of GI fluid loss, initial UA showed PH6.5, papfzl06-15 maintained. -will send urine Na,K,Cl get UAG, get EMMANUEL -Appreciate consult by and her nephrology assessment and recommendations are as follows: "Impression 1. High anion gap metabolic acidosis. Positive for ketones in the urine. The etiology is likely due to ketoacidosis either from starvation or alcoholic ketoacidosis. 2. Hypokalemia and hypomagnesemia due to chronic alcohol abuse and malnutrition. 3. Hypophosphatemia and hypocalcemia. VitD level pending. 4. Alcohol abuse. 5. Dementia. 6. Liver cirrhosis. 7. Escherichia coli urinary tract infection. Plan: Monitor K, Mg, PO4,and Ca. Replace accordingly. Add thiamine and folic acid." # Hypothyroidism, TSH close to 10, FT4 WNL - The levothyroxine dose increased to 150 g daily on admission, from 137ug, check TFT in 8weeks # Decubitus ulcer - It appears at least at this juncture is unable to care for life adequately at home in spite of his best efforts. - Wound care consulted for further evaluation and treatment and appreciate their continued follow-up. - Nutritional consult is ordered and pending for possible contribution of malnutrition to skin breakdown. Disposition: likely 1-2more days, SNF vs home with Pain Evaluation: Adequate Pain Control GI Prophylaxis: Proton Pump Inhibitor VTE Prophylaxis: Sub-Q Heparin (Unfractionated) VTE Mechanical Devices: Intermittant Pneumatic CD Resuscitation Status: CPR: Attempt Resuscitation AmanMg MD Oct 06, 2016 21:45
[2016-10-06] MEDS: Heparin 5,000 Unit/mL Inj SUBQ SCH (23:16)
[2016-10-07 01:55] VITALS: PULSE 92; RESP 18; O2SAT 96
--- NOTE | 2016-10-07 01:56 | NUR ---
ANXIETY/SKIN Patient continues to get quite anxious when her leaves, calling out frequently and tearful. Patient provided multiple position changes and emotional comforting to ease anxiety. Ativan given at bedtime as she continued to call out. Patient able to relax and go to sleep. Multiple brief changes. Large mepilex removed from sacrum as it was continually getting soaked from urine and replaced with small square mepilex. Calmoseptine applied to Labia and buttocks region. Patient appears quite comfortable at this time.
[2016-10-07 05:47] VITALS: BP 102/69; PULSE 69; RESP 16; O2SAT 96
[2016-10-07 06:19] LABS: BASOPHILS % (AUTO) 0.7 % (0-3); EOSINOPHILS % (AUTO) 2.4 % (0-5); MONOCYTES % (AUTO) 9.4 % (4-12); Mean Corpuscular Hemoglobin 28.4 pg (27.0-35.0); Mean Corpuscular Volume 89.9 fL (81-100); NEUTROPHILS % (AUTO) 56.8 % (40-74); Platelet Count 222 bil/L (150-400)
[2016-10-07] MEDS: Sodium-Potassium Phosphorus Packet PO SCH ×4 (08:06→21:00)
[2016-10-07] MEDS: Ondansetron 2 mg/mL 2 mL Inj IVPUSH PRN ×2 (08:09→14:05)
[2016-10-07] MEDS: Pantoprazole 40 mg ER24 Tablet PO SCH (08:13)
[2016-10-07] MEDS: Heparin 5,000 Unit/mL Inj SUBQ SCH ×2 (08:15→20:55)
[2016-10-07 09:20] VITALS: PULSE 83
[2016-10-07] MEDS: LORazepam 1 mg Tablet PO PRN ×2 (11:14→22:12)
[2016-10-07 11:22] VITALS: BP 109/65; PULSE 91; RESP 16; O2SAT 96
--- NOTE | 2016-10-07 13:00 | NUR ---
Anxiety Pt very anxious, calling for nursing staff every several minutes. Pt has been anxious all morning and has not calmed down after other therapeutic techniques. Pt was given Ativan, although it did not relax the pt. Pt's has arrived and pt is now much more calm with him sitting at bedside.
--- NOTE | 2016-10-07 13:35 | NUR ---
Physical Therapy: MD requested one more attempt at mobilizing pt this am. Upon entering room and discussing MD's request for mobilization, pt declined any movement. When reinforcing importance of evaluating pt's ability to get out of bed, pt became agitated, yelling at this therapist. Pt has not been able and/or willing to participate in physical therapy for evaluation or treatment and has resisted all attempts at mobilization. She is not currently a candidate for further rehab at this time. RN present during attempts at mobilization this am.
--- NOTE | 2016-10-07 14:03 | NUR ---
Social Work Note - Readiness for Discharge: D/A: The Pt is a 71 y/o female that is now on day 6 of admission for UTI, generalized weakness. Hospice Info visit completed today, Pt and family signed on for Hospice. SW placed call to Hospice regarding date and time of equipment delivery and opening, left voicemail. SW met with the Pt and the Pt's , both deny any needs at this time. agreeable for the Pt to return home under hospice. reports that the Pt's youngest sister will be assisting with her care 3-4 days/week. P: Pt likely to discharge home with Hospice. Hospice Info complete, SW waiting for return call regarding equipment delivery and opening date and time. Pt and family agreeable for Hospice services, Pt's sister will also be assisting in care for 3-4 days a week. Pt and family deny any other needs at this time, SW will continue to follow. JENELLE Dumont Advertising Account Manager Addendum: 10/07/16 at 1553 by YUE GILLIAM ROSEY internal control analyst note reviewed. JENELLE Goss Addendum: 10/07/16 at 1634 by RODRICK GILLIAM ROSEY t/c from Hospice, Hospice stated that equipment to be delivered tomorrow between 2-3 and can open on Thursday. SW to update family and MD/RN tomorrow. JENELLE Dumont Advertising Account Manager
[2016-10-07] MEDS: cefTRIAXone Inj 1,000 MG in Dextrose 5% Minibag Plus 50 ML IV SCH (15:05)
--- NOTE | 2016-10-07 15:19 | NUR ---
Spoke with Lizett Treat athletics director at [facility] and they have agreed once patient is off Haldol for 24 hours and is participating regularly in therapies they will reconsider admission of patient. Updated [employer]
[2016-10-07 16:34] VITALS: BP 114/75; PULSE 82; RESP 22; O2SAT 95
--- NOTE | 2016-10-07 16:46 | NUR ---
spiritual care: pt needs pt called out for help several times. caring visit, pt requested attention from staff and shared other concerns.
[2016-10-07 20:15] VITALS: BP 110/66; PULSE 77; RESP 19; O2SAT 95
--- NOTE | 2016-10-07 22:00 | PCM.PNMED ---
Subjective Date of Service Oct 07, 2016 Subjective Patient remains pleasantly demented constantly asking the staff and myself to adjust the head of her bed up and then back down and then up again and then back down again. She has no other new complaints. Exam Vital Signs Vital Sign - Last Date Time Temp Pulse Resp B/P Pulse Ox O2 Delivery O2 Flow Rate FiO2 10/07/16 16:34 36.8 82 22 114/75 95 Room Air Intake and Output 10/06/16 10/06/16 10/07/16 Cumulative From/Thru 15:00 23:00 07:00 10/01/16 10:34 - 10/07/16 06:31 Intake Total 61 ml 100 ml 9779 ml Balance 61 ml 100 ml 9779 ml Intake Oral 100 ml 1970 ml IV Total 61 ml 7809 ml # Voids 3 5 31 # Bowel Movements 5 Exam General: Patient is in no apparent distress lying supine in bed. HEENT: Head is atraumatic and normocephalic. Eyes: Pupils are equally round and reactive to light and accommodation. Extraocular muscles are intact. Sclera are white, anicteric. Subconjunctival mucosa is pink. Ears and nose are unremarkable. Oropharynx: There are no mucosal lesions, there is no thrush , there is no pharyngitis. Neck: Is supple, there are no nodes, or masses or tenderness. Chest: Is clear to auscultation and percussion. There are no rales, rhonchi, wheezes or rubs. Heart: Rate, rhythm is regular. There is no murmur, rub or gallop. Abdomen: Good bowel sounds are present. Abdomen is soft, nontender, no organomegaly or masses were appreciated. Extremities: Are symmetrical and well perfused. There is no edema, there is no cellulitis, no rash. There is a skin tear on the left posterior thigh which is superficial. There is some sacral decubital breakdown early stage I. Neurologic: There are no focal neurological deficits. Cranial nerves II through XII are intact. There are no sensory or motor deficits. He is pleasantly demented. Psychiatric: Patients mood is calm and shows no sign of agitation. She is pleasantly demented. Genital: Deferred Rectal: Deferred Lab and Diagnostics Result Diagram: 10/07/16 0550 10/07/16 0550 Microbiology Name: NILA PRATT Age/Sex: 71/F Attend Dr: Xu Anguiano Acct: [id number] Unit: [id number] Status: ADM IN [place] [facility] [place]1 Re10/01/16 Disch: Specimen: [id number] Collected: 10/01/16 Status: COMP Req#: [id number] Received: 10/01/16 Source: URINE CC Sp Desc : PP Jenni Dr: Dawood Barajas MD Ordered: URINE CULT Procedure Result Verified Site Microbiology BILL CULT URINE Final 10/03/16 Organism 1 ESCHERICHIA COLI U COLONY COUNT/QUANTITY >100,000 CFU/ml ESCHERICHIA COLI Cefazolin-predicts results for the oral agents, cefaclor,cefdinir, cefpodoximen, cefprozil, cefuroximne axetil, cephalexin and loracarbed when used for therapy of uncomplicated UTI's due to E. coli, K. pneumoniae, and Proteus mirabilis. Cefpodoxime, cefdinir and cefuroxime axetil may be tested individually because some isolates may be susceptible to these agents while testing resistant to cefazolin. (CLSI D832-A90 pg 53) 1. ESCHERICHIA COLI M.I.C Interp --------- ------ * AMOXICILLIN/CLAVULATE 4 S * AMPICILLIN 8 S * CEFAZOLIN (CEPHALOSPORIN) UTI 4 S * CEFEPIME <=1 S * CEFTRIAXONE <=1 S * CEFUROXIME SODIUM 4 S * CIPROFLOXACIN <=0.25 S * ERTAPENEM <=0.5 S * GENTAMICIN 2 S * IMIPENEM <=1 S * LEVOFLOXACIN <=0.12 S * NITROFURANTOIN <=16 S * TETRACYCLINE <=1 S * TOBRAMYCIN 2 S * TRIMETHOPRIM/SULFAMETHOXAZOLE >=320 R X-Rays, CTs and MRIs PROCEDURE: CT BRAIN WITHOUT CONTRAST ([id number]) INDICATIONS: ho confusion TECHNIQUE: Noncontrast 4.5 mm thick angled axial sections acquired from the foramen magnum to the vertex, with coronal reformats. COMPARISON: [facility], CT, CT BRAIN WO CON, 02/11/2016, 14:51. FINDINGS: Image quality: Diagnostic of motion artifact on this exam is present near the base of the skull. Brain: There is no acute intra-axial or extra-axial hemorrhage. No extra-axial fluid collection is identified. There is no midline shift or mass effect. The orbits are grossly unremarkable. No large areas of diffusely decreased attenuation are evident within the brain to suggest diffuse cerebral edema. Large confluent areas of low-attenuation are present within the deep white matter of the supratentorial brain. The ventricles and cortical sulci are mildly prominent. Bones: Calvarium and visualized facial bones are grossly intact. The imaged paranasal sinuses and mastoid air cells are clear. IMPRESSION: 1. No acute intracranial hemorrhage. 2. Extensive chronic small vessel ischemic changes and parenchymal volume loss. Dictated by: Nolan Walker M.D. on 10/01/2016 at 11:39 Approved by: Nolan Walker M.D. on 10/01/2016 at 11:40 PROCEDURE: X-RAY CHEST ONE VIEW, PORTABLE ([id number]) INDICATIONS: Weakness, ?sepsis TECHNIQUE: One view of the chest was acquired. COMPARISON: [facility], CR, XR CHEST 1VW (PORTABLE), 06/14/2016, 9: 25. FINDINGS: Surgical changes and devices: None. Lungs and pleura: No pleural effusions or pneumothorax. Lungs are clear. Mediastinum: Mediastinal contours appear normal. Heart size is normal. Bones and chest wall: No suspicious bony lesions. Overlying soft tissues appear unremarkable. IMPRESSION: No acute cardiopulmonary disease process. Dictated by: Ava Rodriguez MD, PhD on 10/01/2016 at 10:58 Approved by: Ava Rodriguez MD, PhD on 10/01/2016 at 10:59 Assessment & Plan Patient is a 71-year-old female with progressive weakness worsening most acutely over the past week or so, admitted now for further evaluation possible urinary tract infection which may be contributing to patient's declined function. # Acute encephalopathy, generalized weakness/ Functional paralysis, POA, likely due to UTI with underlying dementia, -The patient is clinically improving with better mentation still remained confused. this pierced to be her baseline -We will verify baseline MS with family -Continue daily physical therapy to increase mobility, recommended SNF -Continue antibiotics as below -The patient is at high risks for delirium, try to avoid chemical/physical restraints, #.UTI, present at the time of admission, secondary to E.Coli+ pansensitive except bactrim -We will continue Rocephin, likely 7-10days course, switch to oral therapy upon d/c -Continue to trend fever curve, WBC and pro-calcitonin levels. # Electrolytes imbalance with metabolic acidosis, ?RTA1 vs UTI associated vs hypothyroidism, although E.Coli unlikely urea splitting organism. no signs of GI fluid loss, initial UA showed PH6.5, [id number] maintained. -will send urine Na,K,Cl get UAG, get EMMANUEL -Appreciate consult by and her nephrology assessment and recommendations are as follows: "Impression 1. High anion gap metabolic acidosis. Positive for ketones in the urine. The etiology is likely due to ketoacidosis either from starvation or alcoholic ketoacidosis. 2. Hypokalemia and hypomagnesemia due to chronic alcohol abuse and malnutrition. 3. Hypophosphatemia and hypocalcemia. VitD level pending. 4. Alcohol abuse. 5. Dementia. 6. Liver cirrhosis. 7. Escherichia coli urinary tract infection. Plan: Monitor K, Mg, PO4,and Ca. Replace accordingly. Add thiamine and folic acid." We will continue to follow nephrology recommendations # Hypothyroidism, TSH close to 10, FT4 WNL - The levothyroxine dose increased to 150 g daily on admission, from 137ug, check TFT in 8weeks # Decubitus ulcer - It appears at least at this juncture is unable to care for life adequately at home in spite of his best efforts. Therefore, consider [facility] facility placement. - Wound care consulted for further evaluation and treatment and appreciate their continued follow-up. - Nutritional consult is ordered and pending for possible contribution of malnutrition to skin breakdown. Disposition: likely 1-2more days, SNF vs home with Pain Evaluation: Adequate Pain Control GI Prophylaxis: Proton Pump Inhibitor VTE Prophylaxis: Sub-Q Heparin (Unfractionated) VTE Mechanical Devices: Intermittant Pneumatic CD Resuscitation Status: CPR: Attempt Resuscitation Aman,Mg Brooks MD Oct 07, 2016 22:00
[2016-10-08] VITALS: BP 109/62; PULSE 69; RESP 17; O2SAT 95
--- NOTE | 2016-10-08 02:04 | NUR ---
Anxiety Pt. confused and appeared to be very anxious at the beginning of the shift, kept calling out for karina , provided comfort and quiet environment, offered fluids and accepted, repositioned q2, dressing to sacrum changed, no drainage or s/s of infection noted, given prn ativan with effective results, pt. calmed down and able to fall asleep, hourly checks, needs anticipated, will continue to monitor.
[2016-10-08 04:30] VITALS: BP 113/68; PULSE 86; RESP 16; O2SAT 96
[2016-10-08 06:44] LABS: BASOPHILS % (AUTO) 0.5 % (0-3); MONOCYTES % (AUTO) 10.7 % (4-12); Mean Corpuscular Hemoglobin 28.4 pg (27.0-35.0); Mean Corpuscular Volume 89.4 fL (81-100); NEUTROPHILS % (AUTO) 55.8 % (40-74); Platelet Count 201 bil/L (150-400)
[2016-10-08] MEDS: Sodium-Potassium Phosphorus Packet PO SCH ×4 (08:30→21:39)
[2016-10-08] MEDS: Heparin 5,000 Unit/mL Inj SUBQ SCH ×2 (09:50→21:40)
[2016-10-08] MEDS: LORazepam 1 mg Tablet PO PRN ×3 (09:50→23:18)
[2016-10-08] MEDS: Pantoprazole 40 mg ER24 Tablet PO SCH (09:50)
[2016-10-08 12:30] VITALS: BP 97/59; PULSE 93; RESP 18; O2SAT 96
--- NOTE | 2016-10-08 14:55 | NUR ---
Mentation/Turning Pt alert to self, able to follow commands. Easily re-oriented. Bed rest with no attempts to get out of bed. Bed alarm on for safety. Q2 hr turns. Mepilex to buttock and lower thigh. PRN PO Ativan available for anxiety. currently at bedside assisting with pt needs.
[2016-10-08] MEDS ORDERED: 0.9% Sodium Chloride 250 ML ONE (16:06)
[2016-10-08] MEDS: cefTRIAXone Inj 1,000 MG in Dextrose 5% Minibag Plus 50 ML IV SCH (16:12)
[2016-10-08 20:30] VITALS: BP 121/75; PULSE 80; RESP 16; O2SAT 96
--- NOTE | 2016-10-08 23:06 | PCM.PNMED ---
Subjective Date of Service Oct 08, 2016 Subjective Patient remains pleasantly confused. She is eating crackers and a supplement drink. Exam Vital Signs Vital Sign - Last Date Time Temp Pulse Resp B/P Pulse Ox O2 Delivery O2 Flow Rate FiO2 10/08/16 12:30 36.9 93 18 97/59 96 Room Air Intake and Output 10/07/16 10/07/16 10/08/16 Cumulative From/Thru 15:00 23:00 07:00 10/01/16 10:34 - 10/08/16 06:21 Intake Total 380 ml 120 ml 85046 ml Balance 380 ml 120 ml 33557 ml Intake Oral 380 ml 120 ml 2470 ml IV Total 7809 ml # Voids 2 4 37 # Bowel Movements 5 Exam General: Patient is in no apparent distress lying supine in bed. HEENT: Head is atraumatic and normocephalic. Eyes: Pupils are equally round and reactive to light and accommodation. Extraocular muscles are intact. Sclera are white, anicteric. Subconjunctival mucosa is pink. Ears and nose are unremarkable. Oropharynx: There are no mucosal lesions, there is no thrush , there is no pharyngitis. Neck: Is supple, there are no nodes, or masses or tenderness. Chest: Is clear to auscultation and percussion. There are no rales, rhonchi, wheezes or rubs. Heart: Rate, rhythm is regular. There is no murmur, rub or gallop. Abdomen: Good bowel sounds are present. Abdomen is soft, nontender, no organomegaly or masses were appreciated. Extremities: Are symmetrical and well perfused. There is no edema, there is no cellulitis, no rash. There is a skin tear on the left posterior thigh which is superficial. There is some sacral decubital breakdown early stage I. Neurologic: There are no focal neurological deficits. Cranial nerves II through XII are intact. There are no sensory or motor deficits. He is pleasantly demented. Psychiatric: Patients mood is calm and shows no sign of agitation. She is pleasantly demented. Genital: Deferred Rectal: Deferred Lab and Diagnostics Result Diagram: 10/08/1660410/08/16604 Microbiology Name: NILA PRATT Age/Sex: 71/F Attend Dr: Xu Anguiano Acct: [id number] Unit: [id number] Status: ADM IN Location: [place] [address]-1 Re10/01/16 Disch: Specimen: [id number] Collected: 10/01/16 Status: COMP Req#: [id number] Received: 10/01/16 Source: URINE CC Sp Desc : ARON Arteaga Dr: Dawood Barajas MD Ordered: URINE CULT Procedure Result Verified Site Microbiology BILL CULT URINE Final 10/03/16 Organism 1 ESCHERICHIA COLI U COLONY COUNT/QUANTITY >100,000 CFU/ml ESCHERICHIA COLI Cefazolin-predicts results for the oral agents, cefaclor,cefdinir, cefpodoximen, cefprozil, cefuroximne axetil, cephalexin and loracarbed when used for therapy of uncomplicated UTI's due to E. coli, K. pneumoniae, and Proteus mirabilis. Cefpodoxime, cefdinir and cefuroxime axetil may be tested individually because some isolates may be susceptible to these agents while testing resistant to cefazolin. (CLSI Q197-V03 pg 53) 1. ESCHERICHIA COLI M.I.C Interp --------- ------ * AMOXICILLIN/CLAVULATE 4 S * AMPICILLIN 8 S * CEFAZOLIN (CEPHALOSPORIN) UTI 4 S * CEFEPIME <=1 S * CEFTRIAXONE <=1 S * CEFUROXIME SODIUM 4 S * CIPROFLOXACIN <=0.25 S * ERTAPENEM <=0.5 S * GENTAMICIN 2 S * IMIPENEM <=1 S * LEVOFLOXACIN <=0.12 S * NITROFURANTOIN <=16 S * TETRACYCLINE <=1 S * TOBRAMYCIN 2 S * TRIMETHOPRIM/SULFAMETHOXAZOLE >=320 R X-Rays, CTs and MRIs PROCEDURE: CT BRAIN WITHOUT CONTRAST ([id number]) INDICATIONS: ho confusion TECHNIQUE: Noncontrast 4.5 mm thick angled axial sections acquired from the foramen magnum to the vertex, with coronal reformats. COMPARISON: [facility], CT, CT BRAIN WO CON, 02/11/2016, 14:51. FINDINGS: Image quality: Diagnostic of motion artifact on this exam is present near the base of the skull. Brain: There is no acute intra-axial or extra-axial hemorrhage. No extra-axial fluid collection is identified. There is no midline shift or mass effect. The orbits are grossly unremarkable. No large areas of diffusely decreased attenuation are evident within the brain to suggest diffuse cerebral edema. Large confluent areas of low-attenuation are present within the deep white matter of the supratentorial brain. The ventricles and cortical sulci are mildly prominent. Bones: Calvarium and visualized facial bones are grossly intact. The imaged paranasal sinuses and mastoid air cells are clear. IMPRESSION: 1. No acute intracranial hemorrhage. 2. Extensive chronic small vessel ischemic changes and parenchymal volume loss. Dictated by: Nolan Walker M.D. on 10/01/2016 at 11:39 Approved by: Nolan Walker M.D. on 10/01/2016 at 11:40 PROCEDURE: X-RAY CHEST ONE VIEW, PORTABLE ([id number]) INDICATIONS: Weakness, ?sepsis TECHNIQUE: One view of the chest was acquired. COMPARISON: [facility], CR, XR CHEST 1VW (PORTABLE), 06/14/2016, 9: 25. FINDINGS: Surgical changes and devices: None. Lungs and pleura: No pleural effusions or pneumothorax. Lungs are clear. Mediastinum: Mediastinal contours appear normal. Heart size is normal. Bones and chest wall: No suspicious bony lesions. Overlying soft tissues appear unremarkable. IMPRESSION: No acute cardiopulmonary disease process. Dictated by: Ava Rodriguez MD, PhD on 10/01/2016 at 10:58 Approved by: Ava Rodriguez MD, PhD on 10/01/2016 at 10:59 Assessment & Plan Patient is a 71-year-old female with progressive weakness worsening most acutely over the past week or so, admitted now for further evaluation possible urinary tract infection which may be contributing to patient's declined function. # Acute encephalopathy, generalized weakness/ Functional paralysis, POA, likely due to UTI with underlying dementia, -The patient is clinically improving with better mentation still remained confused. this pierced to be her baseline -We will verify baseline MS with family -Continue daily physical therapy to increase mobility, recommended SNF -Continue antibiotics as below -The patient is at high risks for delirium, try to avoid chemical/physical restraints, #.UTI, present at the time of admission, secondary to E.Coli+ pansensitive except bactrim -We will continue Rocephin, likely 7-10days course, switch to oral therapy upon d/c -Continue to trend fever curve, WBC and pro-calcitonin levels. # Electrolytes imbalance with metabolic acidosis, ?RTA1 vs UTI associated vs hypothyroidism, although E.Coli unlikely urea splitting organism. no signs of GI fluid loss, initial UA showed PH6.5, [id number] maintained. -will send urine Na,K,Cl get UAG, get EMMANUEL -Appreciate consult by and her nephrology assessment and recommendations are as follows: "Impression 1. High anion gap metabolic acidosis. Positive for ketones in the urine. The etiology is likely due to ketoacidosis either from starvation or alcoholic ketoacidosis. 2. Hypokalemia and hypomagnesemia due to chronic alcohol abuse and malnutrition. 3. Hypophosphatemia and hypocalcemia. VitD level pending. 4. Alcohol abuse. 5. Dementia. 6. Liver cirrhosis. 7. Escherichia coli urinary tract infection. Plan: Monitor K, Mg, PO4,and Ca. Replace accordingly. Add thiamine and folic acid." We will continue to follow nephrology recommendations # Hypothyroidism, TSH close to 10, FT4 WNL - The levothyroxine dose increased to 150 g daily on admission, from 137ug, check TFT in 8weeks # Decubitus ulcer - It appears at least at this juncture is unable to care for life adequately at home in spite of his best efforts. Therefore, would strongly consider [facility] facility placement. - Wound care consulted for further evaluation and treatment and appreciate their continued follow-up. - Nutritional consult is ordered and pending for possible contribution of malnutrition to skin breakdown. Disposition: likely 1-2more days, SNF vs home with HH Pain Evaluation: Adequate Pain Control GI Prophylaxis: Proton Pump Inhibitor VTE Prophylaxis: Sub-Q Heparin (Unfractionated) VTE Mechanical Devices: Intermittant Pneumatic CD Resuscitation Status: CPR: Attempt Resuscitation AmanMg MD Oct 08, 2016 23:06
[2016-10-09 04:24] VITALS: BP 119/69; PULSE 79; RESP 16; O2SAT 95
--- NOTE | 2016-10-09 05:08 | NUR ---
Shift note Pt. given prn ativan for anxiety, able to sleep well, occasionally calling out for but easily re-oriented, turned q2, needs anticipated, call light in reach, astrid alarm on and bed in lowest position, all needs attended.
[2016-10-09 09:11] LABS: BASOPHILS % (AUTO) 0.5 % (0-3); EOSINOPHILS % (AUTO) 2.5 % (0-5); MONOCYTES % (AUTO) 7.9 % (4-12); Mean Corpuscular Hemoglobin 27.8 pg (27.0-35.0); Mean Corpuscular Volume 89.2 fL (81-100); NEUTROPHILS % (AUTO) 57.7 % (40-74); Platelet Count 182 bil/L (150-400)
[2016-10-09 09:35] LABS: Magnesium 1.9 mg/dL (1.6-2.6); Phosphorus 3.8 mg/dL (2.5-4.9)
[2016-10-09 09:39] VITALS: BP 109/75; PULSE 108; RESP 18; O2SAT 95
[2016-10-09] MEDS: Pantoprazole 40 mg ER24 Tablet PO SCH (09:44)
[2016-10-09] MEDS: Sodium-Potassium Phosphorus Packet PO SCH ×4 (09:45→21:07)
[2016-10-09] MEDS: Heparin 5,000 Unit/mL Inj SUBQ SCH ×2 (09:46→20:40)
[2016-10-09] MEDS: LORazepam 1 mg Tablet PO PRN ×2 (11:28→22:20)
[2016-10-09] MEDS: Ondansetron 2 mg/mL 2 mL Inj IVPUSH PRN (12:49)
[2016-10-09 14:07] VITALS: BP 103/64; PULSE 94; RESP 16; O2SAT 96
--- NOTE | 2016-10-09 14:41 | NUR ---
Skin Open area on back of L thigh and non-blanchable redness on sacrum. Mepilex removed r/t incontinence and excessive wetting/moisture. Calmoseptine applied liberally. Q 2hour turns, L, R and bridged. Heels with no issued noted, floated on pillows. On P500 KATHLEEN bed. Continue to monitor closely.
--- NOTE | 2016-10-09 15:44 | NUR ---
NUTRITION FOLLOW UP: ASSESS: 71 YO female admitted for UTI, generalized weakness and failure to thrive, nephrology consulted,no tubular necrosis, noted ketoacidosis from starvation vs. ETOH. MD notes indicate mentation improving; continues on antibiotics for UTI. Continued monitoring of electrolytes. Per EMR review, pt with 19.7% wt loss since Jun 2015. PMHx: Childhood asthma, a-fib, hypothyroidism, sleep apnea, chronic hip pain, liver cirrhosis, mild dementia, anxiety, GERD. LABS: Reviewed.Alb 2.5,PAB 7 (trending up) MEDS: Reviewed. Banana bag GI: 1 BM 10/09 SKIN: small stage 1 PU on coccyx initially and now open Stage II; and small stage 1 PU on sacrum--resolved CURRENT WT: 45.2 kg. Wt Jun 2014: 56.8 kg. Wt loss of 19.7% in approx 16 months. DIET: Heart Healthy, Diabetic. PO 50-75% EST. NEEDS (WOUNDS/WT GAIN): 5363-4150 kcals (30-40 kcals/kg BW), 55-70 g protein (1.2-1.5 g/kg BW) NUTRITION DIAGNOSIS: 1.) Inadequate oral intake related to decreased po intake as evidenced by po intake of 25% x 1 meal and significant wt loss of 19.7% x approx. 16 months.---IMPROVING NUTRITION INTERVENTION: 1.) Continue with Glucerna on all trays--pt. preference. 2.) 10/06:Discussed nutrition for wound healing with pt . Reviewed high protein foods and ways to increase kcal/protein for weight gain. Encouraged pt to sip on glucerna between meals. 3.) 10/06:Diet modified to mechanical soft per pt preference, pt may benefit from swallow evaluation by speech therapy. MONITOR / EVAL: PO intake, labs, wounds, weights, nutritional status. Follow per moderate nutritional risk.
[2016-10-09] MEDS: cefTRIAXone Inj 1,000 MG in Dextrose 5% Minibag Plus 50 ML IV SCH (16:58)
--- NOTE | 2016-10-09 17:14 | NUR ---
Baffle Mounter: Continued Discharge Planning Baffle Mounter spoke with patient and patient's spouse at bedside to discuss discharge planning. They are in agreement that patient will discharge home with [facility] hospice. Patient's spouse stated that the equipment has been delivered to the home and the patient's sister will assist with the patient's care at home. Patient will transfer home via BLS. Patient's attending physician was notified that the patient needs to discharge prior to 10 am on 10/10/16 to make it home and admit to [facility]. SW will continue to follow and assist patient throughout stay. Sammie Rodriguez, AURELIO, ACM
[2016-10-09 19:48] VITALS: BP 112/70; PULSE 82; RESP 16; O2SAT 97
--- NOTE | 2016-10-09 22:59 | PCM.PNMED ---
Subjective Date of Service Oct 09, 2016 Subjective He remains pleasantly confused. She has no new specific complaints. Exam Vital Signs Vital Sign - Last Date Time Temp Pulse Resp B/P Pulse Ox O2 Delivery O2 Flow Rate FiO2 10/09/16 19:48 36.8 82 16 112/70 97 Room Air Intake and Output 10/08/16 10/08/16 10/09/16 Cumulative From/Thru 15:00 23:00 07:00 10/01/16 10:34 - 10/09/16 06:06 Intake Total 436 ml 120 ml 12323 ml Balance 436 ml 120 ml 39635 ml Intake Oral 340 ml 120 ml 2930 ml IV Total 96 ml 7905 ml # Voids 5 2 44 # Bowel Movements 1 6 Exam General: Patient is in no apparent distress lying supine in bed. She is pleasantly confused. However, she is constantly requesting attention from the nursing staff. HEENT: Head is atraumatic and normocephalic. Eyes: Pupils are equally round and reactive to light and accommodation. Extraocular muscles are intact. Sclera are white, anicteric. Subconjunctival mucosa is pink. Ears and nose are unremarkable. Oropharynx: There are no mucosal lesions, there is no thrush , there is no pharyngitis. Neck: Is supple, there are no nodes, or masses or tenderness. Chest: Remains clear to auscultation and percussion. There are no rales, rhonchi, wheezes or rubs. Heart: Rate, rhythm is regular. There is no murmur, rub or gallop. Abdomen: Good bowel sounds are present. Abdomen is soft, nontender, no organomegaly or masses were appreciated. Extremities: Are symmetrical and well perfused. There is no edema, there is no cellulitis, no rash. There is a skin tear on the left posterior thigh which is superficial and stable. There is some sacral decubital breakdown early stage I. This is covered with a metaplex. Neurologic: There are no focal neurological deficits. Cranial nerves II through XII are intact. There are no sensory or motor deficits. She is pleasantly demented. Psychiatric: Patients mood is calm and shows no sign of agitation. She is pleasantly demented. Genital: Deferred Rectal: Deferred Lab and Diagnostics Result Diagram: 10/09/16 0845 10/09/16 0845 Microbiology Name: NILA PRATT Age/Sex: 71/F Attend Dr: Xu Anguiano Acct: [id number] Unit: [id number] Status: ADM IN Location: [place] [address]-1 Re10/01/16 Disch: Specimen: [id number] Collected: 10/01/16 Status: COMP Req#: [id number] Received: 10/01/16 Source: URINE CC Sp Desc : PP Jenni Dr: Dawood Barajas MD Ordered: URINE CULT Procedure Result Verified Site Microbiology BILL CULT URINE Final 10/03/16-20 Organism 1 ESCHERICHIA COLI U COLONY COUNT/QUANTITY >100,000 CFU/ml ESCHERICHIA COLI Cefazolin-predicts results for the oral agents, cefaclor,cefdinir, cefpodoximen, cefprozil, cefuroximne axetil, cephalexin and loracarbed when used for therapy of uncomplicated UTI's due to E. coli, K. pneumoniae, and Proteus mirabilis. Cefpodoxime, cefdinir and cefuroxime axetil may be tested individually because some isolates may be susceptible to these agents while testing resistant to cefazolin. (CLSI H738-G01 pg 53) 1. ESCHERICHIA COLI M.I.C Interp --------- ------ * AMOXICILLIN/CLAVULATE 4 S * AMPICILLIN 8 S * CEFAZOLIN (CEPHALOSPORIN) UTI 4 S * CEFEPIME <=1 S * CEFTRIAXONE <=1 S * CEFUROXIME SODIUM 4 S * CIPROFLOXACIN <=0.25 S * ERTAPENEM <=0.5 S * GENTAMICIN 2 S * IMIPENEM <=1 S * LEVOFLOXACIN <=0.12 S * NITROFURANTOIN <=16 S * TETRACYCLINE <=1 S * TOBRAMYCIN 2 S * TRIMETHOPRIM/SULFAMETHOXAZOLE >=320 R X-Rays, CTs and MRIs PROCEDURE: CT BRAIN WITHOUT CONTRAST ([id number]) INDICATIONS: ho confusion TECHNIQUE: Noncontrast 4.5 mm thick angled axial sections acquired from the foramen magnum to the vertex, with coronal reformats. COMPARISON: [facility], CT, CT BRAIN WO CON, 02/11/2016, 14:51. FINDINGS: Image quality: Diagnostic of motion artifact on this exam is present near the base of the skull. Brain: There is no acute intra-axial or extra-axial hemorrhage. No extra-axial fluid collection is identified. There is no midline shift or mass effect. The orbits are grossly unremarkable. No large areas of diffusely decreased attenuation are evident within the brain to suggest diffuse cerebral edema. Large confluent areas of low-attenuation are present within the deep white matter of the supratentorial brain. The ventricles and cortical sulci are mildly prominent. Bones: Calvarium and visualized facial bones are grossly intact. The imaged paranasal sinuses and mastoid air cells are clear. IMPRESSION: 1. No acute intracranial hemorrhage. 2. Extensive chronic small vessel ischemic changes and parenchymal volume loss. Dictated by: Nolan Walker M.D. on 10/01/2016 at 11:39 Approved by: Nolan Walker M.D. on 10/01/2016 at 11:40 PROCEDURE: X-RAY CHEST ONE VIEW, PORTABLE ([id number]) INDICATIONS: Weakness, ?sepsis TECHNIQUE: One view of the chest was acquired. COMPARISON: [facility], CR, XR CHEST 1VW (PORTABLE), 06/14/2016, 9: 25. FINDINGS: Surgical changes and devices: None. Lungs and pleura: No pleural effusions or pneumothorax. Lungs are clear. Mediastinum: Mediastinal contours appear normal. Heart size is normal. Bones and chest wall: No suspicious bony lesions. Overlying soft tissues appear unremarkable. IMPRESSION: No acute cardiopulmonary disease process. Dictated by: Ava Rodriguez MD, PhD on 10/01/2016 at 10:58 Approved by: Ava Rodriguez MD, PhD on 10/01/2016 at 10:59 Assessment & Plan Patient is a 71-year-old female with progressive weakness worsening most acutely over the past week or so, admitted now for further evaluation possible urinary tract infection which may be contributing to patient's declined function. # Acute encephalopathy, generalized weakness/ Functional paralysis, POA, likely due to UTI with underlying dementia, -The patient is clinically improving with better mentation still remained confused. this pierced to be her baseline -We will verify baseline MS with family -Continue daily physical therapy to increase mobility, recommended SNF -Continue antibiotics as below -The patient is at high risks for delirium, try to avoid chemical/physical restraints, #.UTI, present at the time of admission, secondary to E.Coli+ pansensitive except bactrim -We will continue Rocephin, likely 7-10days course, switch to oral therapy upon d/c -Continue to trend fever curve, WBC and pro-calcitonin levels. # Electrolytes imbalance with metabolic acidosis, ?RTA1 vs UTI associated vs hypothyroidism, although E.Coli unlikely urea splitting organism. no signs of GI fluid loss, initial UA showed PH6.5, [id number] maintained. -will send urine Na,K,Cl get UAG, get EMMANUEL -Appreciate consult by and her nephrology assessment and recommendations are as follows: "Impression 1. High anion gap metabolic acidosis. Positive for ketones in the urine. The etiology is likely due to ketoacidosis either from starvation or alcoholic ketoacidosis. 2. Hypokalemia and hypomagnesemia due to chronic alcohol abuse and malnutrition. 3. Hypophosphatemia and hypocalcemia. VitD level pending. 4. Alcohol abuse. 5. Dementia. 6. Liver cirrhosis. 7. Escherichia coli urinary tract infection. Plan: Monitor K, Mg, PO4,and Ca. Replace accordingly. Add thiamine and folic acid." We will continue to follow nephrology recommendations # Hypothyroidism, TSH close to 10, FT4 WNL - The levothyroxine dose increased to 150 g daily on admission, from 137ug, check TFT in 8weeks # Decubitus ulcer - It appears at least at this juncture is unable to care for life adequately at home in spite of his best efforts. Therefore, would strongly consider residential facility placement. - Wound care consulted for further evaluation and treatment and appreciate their continued follow-up. - Nutritional consult is ordered and pending for possible contribution of malnutrition to skin breakdown. Disposition: Plan is to discharge home with hospice in a.m. Pain Evaluation: Adequate Pain Control GI Prophylaxis: Proton Pump Inhibitor VTE Prophylaxis: Sub-Q Heparin (Unfractionated) VTE Mechanical Devices: Intermittant Pneumatic CD Resuscitation Status: CPR: Attempt Resuscitation [place],Mg Brooks MD Oct 09, 2016 22:59
--- NOTE | 2016-10-10 01:57 | NUR ---
Shift Note Pt. turned q2, continues on redness to sacrum, calmoseptine applied, brief changed frequently due to urinary incontinence, anxiety managed by 1 dose of prn lorazepam, slept good, easily re-oriented, stable, needs anticipated, will continue to monitor closely throughout stay.
[2016-10-10 04:46] VITALS: BP 108/68; PULSE 82; RESP 16; O2SAT 93
[2016-10-10 07:18] LABS: BASOPHILS % (AUTO) 0.8 % (0-3); EOSINOPHILS % (AUTO) 3.4 % (0-5); MONOCYTES % (AUTO) 10.2 % (4-12); Mean Corpuscular Hemoglobin 28.5 pg (27.0-35.0); Mean Corpuscular Volume 88.2 fL (81-100); NEUTROPHILS % (AUTO) 50.3 % (40-74); Platelet Count 180 bil/L (150-400)
[2016-10-10 07:34] LABS: Magnesium 1.9 mg/dL (1.6-2.6)
--- NOTE | 2016-10-10 08:10 | NUR ---
Per [employer] request arranged BLS transport with [facility] to pt's home on [address] at 10a. advised [employer]>
[2016-10-10] MEDS: Pantoprazole 40 mg ER24 Tablet PO SCH (08:47)
[2016-10-10] MEDS: Sodium-Potassium Phosphorus Packet PO SCH (08:48)
[2016-10-10] MEDS: Heparin 5,000 Unit/mL Inj SUBQ SCH (08:48)
--- NOTE | 2016-10-10 09:02 | PCM.DIMED ---
Discharge Instructions Date of Service Oct 10, 2016 Dates of Hospitalization Oct 01, 2016 at 13:03 Discharge Diagnosis Discharge Diagnosis Urinary Tract infection with Dementia Diet Heart Healthy Activity Outpatient Physical Therapy Call your provider Fever or Chills, Shortness of breath, Bleeding, Chest pain, Vomitting, Excessive diarrhea, Weakness (unilateral) Patient Instructions Follow-up Provider: Odette Thomas Follow-up with PCP in: 1 week Additional Information Patient is going home with Hospice Care. Mg Newton MD Oct 10, 2016 09:02
[2016-10-10] MEDS ORDERED: Thiamine PO (09:11)
[2016-10-10] MEDS ORDERED: NAPH1POW2 PO (09:11)
[2016-10-10] MEDS ORDERED: FOLI1TAB18 PO (09:11)
[2016-10-10] MEDS ORDERED: SENN-133 PO (09:11)
--- NOTE | 2016-10-10 10:17 | NUR ---
Discharge Pt. discharged to home via BLS transport at 1010 today in stable condition. Alert and oriented to self. No c/o chest pain or SOB. Brief changed and skin care prior to discharge. Scripts, instructions and belongings with pt. No questions or concerns at this time.
--- NOTE | 2016-10-11 00:59 | PCM.DC.MED ---
Discharge Summary Date of Service Oct 10, 2016 Dates of Hospitalization Date of Hospital Admission Oct 01, 2016 at 13:03 Date of Discharge: Oct 10, 2016 Providers: Admitting Physician: Xu Anguiano DO Primary Care Physician: Other,Physician Attending Physician: Xu Anguiano DO Diagnosis at Time of Discharge Diagnosis at Time of Discharge Urinary Tract infection with Dementia Procedures XRay, CTs & MRIs PROCEDURE: CT BRAIN WITHOUT CONTRAST ([id number]) INDICATIONS: ho confusion TECHNIQUE: Noncontrast 4.5 mm thick angled axial sections acquired from the foramen magnum to the vertex, with coronal reformats. COMPARISON: [facility], CT, CT BRAIN WO CON, 02/11/2016, 14:51. FINDINGS: Image quality: Diagnostic of motion artifact on this exam is present near the base of the skull. Brain: There is no acute intra-axial or extra-axial hemorrhage. No extra-axial fluid collection is identified. There is no midline shift or mass effect. The orbits are grossly unremarkable. No large areas of diffusely decreased attenuation are evident within the brain to suggest diffuse cerebral edema. Large confluent areas of low-attenuation are present within the deep white matter of the supratentorial brain. The ventricles and cortical sulci are mildly prominent. Bones: Calvarium and visualized facial bones are grossly intact. The imaged paranasal sinuses and mastoid air cells are clear. IMPRESSION: 1. No acute intracranial hemorrhage. 2. Extensive chronic small vessel ischemic changes and parenchymal volume loss. Dictated by: Nolan Walker M.D. on 10/01/2016 at 11:39 Approved by: Nolan Walker M.D. on 10/01/2016 at 11:40 PROCEDURE: X-RAY CHEST ONE VIEW, PORTABLE ([id number]) INDICATIONS: Weakness, ?sepsis TECHNIQUE: One view of the chest was acquired. COMPARISON: [facility], CR, XR CHEST 1VW (PORTABLE), 06/14/2016, 9: 25. FINDINGS: Surgical changes and devices: None. Lungs and pleura: No pleural effusions or pneumothorax. Lungs are clear. Mediastinum: Mediastinal contours appear normal. Heart size is normal. Bones and chest wall: No suspicious bony lesions. Overlying soft tissues appear unremarkable. IMPRESSION: No acute cardiopulmonary disease process. Dictated by: Ava Rodriguez MD, PhD on 10/01/2016 at 10:58 Approved by: Ava Rodriguez MD, PhD on 10/01/2016 at 10:59 Brief History Patient is a 71-year-old female past medical history significant for hypothyroidism, mild dementia, last hospitalized a few months prior with UTI, who currently lives at home with , brought in to the ER due to concern for progressive weakness over the past months which is worse and more acutely in the past weeks to days. He notes some more gradual decline in function since her hip fracture approximately year and a half ago, no notes at times it seems she was getting back to old self regarding ambulation and physical strength. More recently however her function is began to decline more abruptly. Last time she left hospital around May she was strong enough to ambulate under her own strength get around house attending to most of her ADLs, over the past few months however she has become more weak, hip pain especially has limited her ambulation, and for nearly the past month she has been almost able to get out of bed. notes he has had to change her in bed viral in her back and forth, and is attending to almost all of her needs at this time. She finally became weak to the point she was unable to almost assist him enrolling care for her which finally prompted her presentation to emergency department for further evaluation. Denies any recent history of fever or chills. He does note her appetite appears to have diminished quite significantly, and this has been a more chronic problem for at least the past few months. She will take just a few bites of food and then become full. Denies any complaints of chest pain or shortness of breath. He is aware of some skin breakdown on hips which has been causing her pain, which seems to have developed over last couple weeks due to prolonged time in bed. Doing her best roller [id number] repositioned but he is also himself and has difficulty doing so. Especially as her weakness has become more progressive and she is less able to assist. Hospital Course Patient is a 71-year-old female with progressive weakness worsening most acutely over the past week or so, admitted now for further evaluation possible urinary tract infection which may be contributing to patient's declined function. # Acute encephalopathy, generalized weakness/ Functional paralysis, POA, likely due to UTI with underlying dementia, -The patient is clinically improving with better mentation still remained confused. this pierced to be her baseline -We will verify baseline MS with family -Continue daily physical therapy to increase mobility, recommended SNF -Continue antibiotics as below -The patient is at high risks for delirium, try to avoid chemical/physical restraints, #.UTI, present at the time of admission, secondary to E.Coli+ pansensitive except bactrim -We will continue Rocephin, likely 7-10days course, switch to oral therapy upon d/c -Continue to trend fever curve, WBC and pro-calcitonin levels. # Electrolytes imbalance with metabolic acidosis, ?RTA1 vs UTI associated vs hypothyroidism, although E.Coli unlikely urea splitting organism. no signs of GI fluid loss, initial UA showed PH6.5, [id number] maintained. -will send urine Na,K,Cl get UAG, get EMMANUEL -Appreciate consult by and her nephrology assessment and recommendations are as follows: "Impression 1. High anion gap metabolic acidosis. Positive for ketones in the urine. The etiology is likely due to ketoacidosis either from starvation or alcoholic ketoacidosis. 2. Hypokalemia and hypomagnesemia due to chronic alcohol abuse and malnutrition. 3. Hypophosphatemia and hypocalcemia. VitD level pending. 4. Alcohol abuse. 5. Dementia. 6. Liver cirrhosis. 7. Escherichia coli urinary tract infection. Plan: Monitor K, Mg, PO4,and Ca. Replace accordingly. Add thiamine and folic acid." We will continue to follow nephrology recommendations # Hypothyroidism, TSH close to 10, FT4 WNL - The levothyroxine dose increased to 150 g daily on admission, from 137ug, check TFT in 8weeks # Decubitus ulcer - It appears at least at this juncture is unable to care for life adequately at home in spite of his best efforts. Therefore, would strongly consider shelter facility placement. - Wound care consulted for further evaluation and treatment and appreciate their continued follow-up. - Nutritional consult is ordered and pending for possible contribution of malnutrition to skin breakdown. Disposition: Plan is to discharge home with hospice today Exam Vital Signs (Last) Date Time Temp Pulse Resp B/P Pulse Ox O2 Delivery O2 Flow Rate FiO2 10/10/16 04:46 36.7 82 16 108/68 93 Room Air Exam General: Patient is in no apparent distress lying supine in bed. She is pleasantly confused. However, she is constantly requesting attention from the nursing staff. HEENT: Head is atraumatic and normocephalic. Eyes: Pupils are equally round and reactive to light and accommodation. Extraocular muscles are intact. Sclera are white, anicteric. Subconjunctival mucosa is pink. Ears and nose are unremarkable. Oropharynx: There are no mucosal lesions, there is no thrush , there is no pharyngitis. Neck: Is supple, there are no nodes, or masses or tenderness. Chest: Remains clear to auscultation and percussion. There are no rales, rhonchi, wheezes or rubs. Heart: Rate, rhythm is regular. There is no murmur, rub or gallop. Abdomen: Good bowel sounds are present. Abdomen is soft, nontender, no organomegaly or masses were appreciated. Extremities: Are symmetrical and well perfused. There is no edema, there is no cellulitis, no rash. There is a skin tear on the left posterior thigh which is superficial and stable. There is some sacral decubital breakdown early stage I. This is covered with a metaplex. Neurologic: There are no focal neurological deficits. Cranial nerves II through XII are intact. There are no sensory or motor deficits. She is pleasantly demented. Psychiatric: Patients mood is calm and shows no sign of agitation. She is pleasantly demented. Genital: Deferred Rectal: Deferred Test 10/01/16 10:40 10/01/16 11:00 10/05/16 05:00 10/05/16 13:50 Lactic Acid Level 1.9mmol/L (0.4-2.0) Total Creatine Kinase 24U/L (21-215) Troponin T 0.010ug/L (0.0-0.011) Hold Purple Top Tube Received (Received) Prothrombin Time 13.1sec (8.1-12.5) Prothromb Time International Ratio 1.22ratio Hold Blue Top Tube Received (Received) Thyroid Stimulating Hormone (TSH) 9.990uIU/mL (0.450-4.500) Free Thyroxine 1.04ng/dL (0.82-1.77) Hold Red Top Tube Received (Received) Hold [place] Top Tube Received (Received) Hold [place] Top Tube Received (Received) Alcohols < 10mg/dL (0-10) Anti-Nuclear Antibody Screen Negative (Negative) Osmolality 295 (275-300) Test 10/05/16 16:37 10/06/16 05:20 10/07/16 05:50 10/09/16 08:45 Urine Color Yellow (YELLOW) Urine Appearance Hazy (CLEAR,HAZY) Urine pH 6.0 (5.0-8.0) Urine Specific [place] 1.025 (1.003-1.035) Urine Protein Tracemg/dL (NEG,TRACE) Urine Glucose (UA) Negativemg/dL (NEGATIVE) Urine Ketones Negativemg/dL (NEGATIVE) Urine Occult Blood Moderate (NEGATIVE) Urine Nitrite Negative (NEGATIVE) Urine Bilirubin Negative (NEGATIVE) Urine Urobilinogen Normalmg/dL (NORMAL) Urine Leukocyte Esterase Moderate (NEGATIVE) Urine RBC 3-10/hpf (0-2) Urine WBC 11-50/hpf (0-5) Urine Epithelial Cells None/hpf (NONE-MOD) Urine Crystals None seen (NONE SEEN) Urine Bacteria Few/hpf (NONE-FEW) Urine Hyaline Casts None/lpf (NONE) Urine Granular Casts None seen (NONE SEEN) Urine Waxy Casts None seen (NONE SEEN) Urine Red Blood Cell Casts None seen (NONE SEEN) Urine White Blood Cell Casts None seen (NONE SEEN) Urine Mucus None seen (None Seen) Urine Trichomonas None seen (NONE SEEN) Urine Yeast None (NONE SEEN) Urinalysis Comment None Urine Culture Reflexed Indicated Urine Osmolality 466mOs/kH2O (250-1200) Urine Random Sodium 95mEq/L Urine Random Potassium 26.5mEq/L Urine Random Chloride 126mEq/L Ionized Calcium (Calculated) 4.02mg/dL (3.5-5.2) Ammonia 28ug/dL (18-53) Vitamin D 25-Hydroxy 20.7ng/mL (30.0-100.0) Procalcitonin 0.15ng/mL (0.00-0.08) Prealbumin 7mg/dL (20-40) Phosphorus Level 3.8mg/dL (2.5-4.9) Test 10/10/16 06:47 White Blood Count 8.6th/mm3 (3.8-10.1) Red Blood Count 3.47mil/mm3 (3.90-5.20) Hemoglobin 9.9g/dL (12.0-15.6) Hematocrit 30.6% (35.0-46.0) Mean Corpuscular Volume 88.2fL (81-100) Mean Corpuscular Hemoglobin 28.5pg (27.0-35.0) Mean Corpuscular Hemoglobin Concent 32.4% (32.0-37.0) Red Cell Distribution Width 17.0% (12.3-15.4) Platelet Count 180bil/L (150-400) Neutrophils (%) (Auto) 50.3% (40-74) Lymphocytes (%) (Auto) 33.8% (14-46) Monocytes (%) (Auto) 10.2% (4-12) Eosinophils (%) (Auto) 3.4% (0-5) Basophils (%) (Auto) 0.8% (0-3) Sodium Level 138mEq/L (134-144) Potassium Level 4.4mEq/L (3.5-5.2) Chloride Level 104mEq/L (97-108) Carbon Dioxide Level 21mmol/L (18-29) Blood Urea Nitrogen 7mg/dL (8-27) Creatinine 0.38mg/dL (0.57-1.00) Estimat Glomerular Filtration Rate 240mL/min (>59) Glucose Level 103mg/dL (60-99) Calcium Level 8.5mg/dL (8.5-10.1) Magnesium Level 1.9mg/dL (1.6-2.6) Total Bilirubin 0.3mg/dL (0.0-1.2) Aspartate Amino Transf (AST/SGOT) 31U/L (0-50) Alanine Aminotransferase (ALT/SGPT) 13U/L (0-32) Alkaline Phosphatase 81U/L (25-165) Total Protein 6.1g/dL (6.4-8.4) Albumin 2.4g/dL (3.4-5.0) Microbiology Results Name: NILA PRATT Age/Sex: 71/F Attend Dr: Xu Anguiano Acct: [id number] Unit: [id number] Status: ADM IN Location: [place] [id number] Re10/01/16 Disch: Specimen: [id number] Collected: 10/01/16 Status: COMP Req#: [id number] Received: 10/01/16 Source: URINE CC Sp Desc : ARON Arteaga Dr: Dawood Barajas MD Ordered: URINE CULT Procedure Result Verified Site Microbiology BILL CULT URINE Final 10/03/16 Organism 1 ESCHERICHIA COLI U COLONY COUNT/QUANTITY >100,000 CFU/ml ESCHERICHIA COLI Cefazolin-predicts results for the oral agents, cefaclor,cefdinir, cefpodoximen, cefprozil, cefuroximne axetil, cephalexin and loracarbed when used for therapy of uncomplicated UTI's due to E. coli, K. pneumoniae, and Proteus mirabilis. Cefpodoxime, cefdinir and cefuroxime axetil may be tested individually because some isolates may be susceptible to these agents while testing resistant to cefazolin. (CLSI P301-T90 pg 53) 1. ESCHERICHIA COLI M.I.C Interp --------- ------ * AMOXICILLIN/CLAVULATE 4 S * AMPICILLIN 8 S * CEFAZOLIN (CEPHALOSPORIN) UTI 4 S * CEFEPIME <=1 S * CEFTRIAXONE <=1 S * CEFUROXIME SODIUM 4 S * CIPROFLOXACIN <=0.25 S * ERTAPENEM <=0.5 S * GENTAMICIN 2 S * IMIPENEM <=1 S * LEVOFLOXACIN <=0.12 S * NITROFURANTOIN <=16 S * TETRACYCLINE <=1 S * TOBRAMYCIN 2 S * TRIMETHOPRIM/SULFAMETHOXAZOLE >=320 R Discharge Medications Discharge Medications ([Thiamine]) 100 MG TABLET 100 MG PO DAILY Prescribed by: ANDREA NEWTON MD Cholecalciferol (Vitamin D3) (Vitamin D3) 5,000 Unit Tablet 5,000 UNIT PO DAILY (Reported) Folic Acid (Folic Acid) 1 Mg Tablet 1 MG PO DAILY Prescribed by: ANDREA NEWTON MD Levothyroxine (Levothyroxine) 137 Mcg Tablet 137 MCG PO DAILY Prescribed by: ANNA ALCARAZ DO Multivitamin (Multi Vitamin Daily) 1 Each Tablet 1 EACH PO DAILY Prescribed by: ANNA ALCARAZ DO Naph,Mb-Db/K pH,Mbdb (Phos-Nak Packet) 1 Each Powd.pack 1 EA PO PCHS Prescribed by: ANDREA NEWTON MD As needed Albuterol Sulfate (Ventolin HFA Inhaler) 200 Puff/18 Gm Inhaler 2 PUFF INHALATION Q4H PRN PRN For Shortness of Breath Prescribed by: ANNA ALCARAZ DO Sennosides (Senna) 8.6 Mg Tablet 17.2 MG PO BID PRN PRN For Constipation Prescribed by: ANDREA NEWTON MD Followup Plan Disposition: Patient is being discharged home with hospice. Discharge Diet: Heart Healthy Discharge Activity: Outpatient Physical Therapy Follow-up Provider: Odette Thomas Follow-up with PCP in: 1 week Time spent Time spent on discharging this patient was greater than 35 minutes, over half of which was involved in counseling and coordination of care. Mg Newton MD Oct 11, 2016 00:59
== END 2016-10-10 10:15 | disposition hospice, home (50) | DRG 871 ==
LOC: EDBD 10:23 → EDUNIT# 10:23 → SED 10:23 → MOC 13:03
PROVIDERS: ADMIT Family Medicine; ATTEND Family Medicine
DX: A41.9 Sepsis, unspecified organism (principal); G93.49 Other encephalopathy; R53.2 Functional quadriplegia; N39.0 Urinary tract infection, site not specified; E46 Unspecified protein-calorie malnutrition; Z68.1 Body mass index [BMI] 19.9 or less, adult; E87.2 Acidosis; E03.9 Hypothyroidism, unspecified; F03.90 Unspecified dementia, unspecified severity, without behavioral disturbance, psychotic disturbance, mood disturbance, and anxiety; E87.6 Hypokalemia; F10.10 Alcohol abuse, uncomplicated; L89.151 Pressure ulcer of sacral region, stage 1; B96.20 Unspecified Escherichia coli [E. coli] as the cause of diseases classified elsewhere